=== PATIENT | male | born 1950 | race Caucasian/White ===

== ENCOUNTER 2016-11-26 20:29 | Inpatient (IN) ==
[2016-11-26] MEDS ORDERED: *HR* Enoxaparin 40 MG/0.4 ML SYRINGE SQ STA (22:01)
[2016-11-26] MEDS ORDERED: MOM Conc 10 ML UD.LIQ PO PRN (22:01)
[2016-11-26] MEDS ORDERED: *HR* Morphine 2 MG/ML SYRINGE IVP PRN (22:01)
[2016-11-26] MEDS ORDERED: Acetaminophen 325 MG TABLET PO PRN (22:01)
[2016-11-26] MEDS ORDERED: Naloxone 0.4 MG/ML INJ IVP PRN (22:01)
[2016-11-26] MEDS ORDERED: *HR* Promethazine 25 MG/ML VIAL IVP PRN (22:01)
[2016-11-26] MEDS ORDERED: *HR* OxyCODONE Immed Rel 5 MG TABLET PO PRN (22:01)
[2016-11-26] MEDS ORDERED: 0.9 % Sodium Chloride 1,000 ML IVC SCH (22:15)
[2016-11-26 22:52] LABS: INR 1.4; Prothrombin Time 15.3 Seconds (9.4-12.1)
[2016-11-26 22:54] LABS: Activated Partial Thrombo Time 33.4 Seconds (26.0-36.0)
[2016-11-26 22:58] LABS: Magnesium 1.2 mg/dL (1.6-2.6)
[2016-11-27] MEDS ORDERED: Benzonatate 100 MG CAPSULE PO PRN (00:48)
[2016-11-27] MEDS ORDERED: *HR* LORazepam 2 MG/ML VIAL IVP PRN (00:48)
[2016-11-27] MEDS ORDERED: *HR* Heparin 5,000 UNIT/ML VIAL IVP PRN ×2 (00:48)
[2016-11-27] MEDS ORDERED: *HR* Heparin 5,000 UNIT/ML VIAL IVP ONE (00:48)
[2016-11-27] MEDS ORDERED: Nitroglycerin 0.4 MG TAB.SUBL SL PRN (00:48)
[2016-11-27] MEDS ORDERED: Albuterol 2.5 MG/3 ML NEBULIZER IH PRN (00:48)
[2016-11-27] MEDS ORDERED: Heparin 25,000 UNIT/500 ML D5W 25,000 UNIT/500 ML MLS IVC SCH (01:00)
[2016-11-27] MEDS ORDERED: methylPREDNISolone 125 MG/2 ML VIAL IVP ONE (01:02)
[2016-11-27] MEDS ORDERED: Magnesium Sulfate 2 GM in D5% in Water 100 ML IVPB STA (01:14)
--- NOTE | 2016-11-27 01:15 | Internal Med History&Physical ---
Date of Encounter: 11/26/16 Time of Encounter: 22:00 Assessment and Plan (1) Acute chest pain Current visit: Yes Status: Acute . (2) Chest pain, rule out acute myocardial infarction Current visit: Yes Status: Acute . (3) Chest pain with moderate risk of acute coronary syndrome Current visit: Yes Status: Acute . (4) Demand ischemia of myocardium Current visit: Yes Status: Acute . (5) Ischemia due to increased oxygen demand Current visit: Yes Status: Acute . (6) Angina pectoris, unstable Current visit: Yes Status: Acute . (7) Elevated troponin I measurement Current visit: Yes Status: Acute . (8) Benign neoplasm of lung Current visit: Yes Status: Acute . Qualifiers: Laterality: left Qualified Code(s): D14.32 - Benign neoplasm of left bronchus and lung (9) Hypomagnesemia Current visit: Yes Status: Acute . (10) Nicotine dependence with nicotine-induced disorder Current visit: Yes Status: Chronic . Qualifiers: Nicotine product type: cigarettes Qualified Code(s): F17.219 - Nicotine dependence, cigarettes, with unspecified nicotine-induced disorders (11) Hypertension Current visit: Yes Status: Chronic . Qualifiers: Hypertension type: essential hypertension Qualified Code(s): I10 - Essential (primary) hypertension (12) Dyslipidemia Current visit: Yes Status: Chronic . (13) Obesity (BMI 30-39.9) Current visit: Yes Status: Chronic . (14) COPD (chronic obstructive pulmonary disease) Current visit: Yes Status: Chronic . Qualifiers: COPD type: chronic bronchitis Chronic bronchitis type: mixed simple and mucopurulent Qualified Code(s): J41.8 - Mixed simple and mucopurulent chronic bronchitis (15) Upper respiratory tract infection Current visit: Yes Status: Acute . Qualifiers: URI type: unspecified URI Qualified Code(s): J06.9 - Acute upper respiratory infection, unspecified (16) Acute bronchitis with bronchospasm Current visit: Yes Status: Acute . (17) Atrial fibrillation with RVR Current visit: Yes Status: Acute . (18) Atrial fibrillation and flutter Current visit: Yes Status: Acute . (19) Postobstructive pneumonia Current visit: Yes Status: Acute . (20) Atrial flutter with rapid ventricular response Current visit: Yes Status: Acute . (21) CAD (coronary artery disease) Current visit: Yes Status: Chronic . Qualifiers: Coronary Disease-Associated Artery/Lesion type: [place] artery [place] vs. transplanted heart: [place] heart Associated angina: angina presence unspecified Qualified Code(s): I25.10 - Atherosclerotic heart disease of [place] coronary artery without angina pectoris (22) Mass of left lung Current visit: Yes Status: Chronic . (23) History of PTCA Current visit: Yes Status: Chronic . (24) Non-ST elevation myocardial infarction (NSTEMI) Current visit: Yes Status: Acute . (25) Hypocalcemia Current visit: Yes Status: Acute . (26) Hyponatremia with decreased serum osmolality Current visit: Yes Status: Acute . Internal Medicine - H&P: HPI Chief complaint: Difficulty in breathing. Palpitations. Admitted From: Hospital to Hospital Transfer (Hospital transfer from [facility] ED) Plans for Post Hospital Care: Home History of present illness: Mr. Farias is a 66 year old male with significant history for CAD/PTCAstents x2/AMI, COPD, asthma, hypertension, dyslipidemia, osteoarthritis, osteopenia, H/ O pneumothorax, H/O ?benign left lung mass, obesity, nicotine dependency The patient was visited and interviewed and examined. The patient is admitted to [facility] as a hospital transfer from [facility] emergency department for interventions pertaining to recently defined to new onset atrial fibrillation with a ventricular response in the setting of recurrent angina pectoris. The patient acknowledged being ill for approximately 2 weeks with upper respiratory tract infection. He was seen at a local urgent care center the evening before presenting to the [facility] ED. He was placed on an antibiotic (Zpac) to managed out to be acute bronchitis/community-acquired pneumonia. He completed the initial course of antibiotic and returned to the urgent care center and was initiated on a stronger antibiotic (Augmentin) as the patient felt that he was still symptomatic of chest congestion and nonproductive cough generalized malaise. However he was brought by EMS services to the [facility] emergency department because of acute onset of sharp discomfort in the epigastrium. The cough is described as nonproductive. There was no evidence of hemoptysis hematemesis melena epistaxis. Patient acknowledges postnasal drainage sore throat and wheezing. Denies the fever or chills sweats. Acknowledged shortness of breath at rest and with activity. Persistent moderate to severe in nature over a two-week period of time. Respiratory difficulties cough wheezing and shortness of air worsened with activity symptoms seem to diminish severity with rest. The epigastric pain especially seem to be exertional in nature. He denied any dietary recreational medication related questions. He is a continued smoker. He acknowledges diminished use of tobacco last 2 weeks and more so in the last 2-3 days due to his illness. Findings in the ED: Temperature 98.6 pulse 102 -162 respiration 12-20 and BP 143/78-100 O2 saturation 98% liters per nasal cannula. WBC 13.6 hemoglobin 14.4 platelets 249 ,000. Differential shows an increase in neutrophils. PT 16.2 INR 1.5. Metabolic panel sodium 132 chloride 96. BUN 10 creatinine 1.1. Glucose 109 osmolality 274. Albumin 2.9 total 7.2. Globulin 4.3. Troponin 0.07 0.08. BNP 239. Chest x-ray demonstrates poorly defined left mid lung mass with tenting of the lateral diaphragm. 7 cm or more in size. Mass is increased in size since CT scan of 2011. EKG demonstrates atrial fibrillation with RVR rate 163. Incomplete right bundle branch block. No acute ischemic changes. Preliminary impression suggests ACS/UA against background of persistent upper respiratory tract infection and generalized malaise. Demand ischemia of myocardium with a secondary troponin elevation and flash pulmonary edema not unlikely progression of events. Screening studies consistent with a systemic inflammatory response syndrome criteria met. Patient has COPD exacerbation with acute on chronic bronchitis exacerbation as a consequence. No discrete pneumonia has been defined. The large left upper lobe mass does create compression of the lung tissue predisposing to postobstructive pneumonia and atelectasis of distal lung sections. He does report however that his biopsy of this lesion in the past was benign and he has not sought follow-up for quite some time and the mass is considerably increased in size. Evaluation for possible malignant change in this mass is warranted. He is not toxic or acutely ill as relates to respiratory complaints. Sepsis criteria and are not fully met at the time of this admission. The patient however is at increased risk for acute clinical decline and morbidity. JERED score approximate 5-6. This equates to 26%-41% risk of 14 day cause mortality, and recurrent [place], and/ or severe recurrent ischemia requiring urgent vascularization. Workup and treatment will progress comprehensively. Cumulative laboratory and radiographic data base was reviewed, considered and discussed. Pertinent ancillary medical records including ECW and PCI documentation, when available, was reviewed and considered. Given the patient's presenting concerns, past medical history, clinical findings and symptoms, he is admitted at this time will undergo further evaluation and disposition. Orders were written as per the computerized physician work order clerk system.......................................................................... .................... Consultative opinion and will be sought as clinical circumstances justify. Initial consultative opinion has been requested of cardiology. Pain management needs will be addressed. Laboratory and radiographic data base will be updated as appropriate. Studies include: Cultures of blood and urine and sputum, cardiac injury panel, BNP, metabolic and hematologic panel, magnesium, phosphorus, ionized calcium, thyroid panel, lipid profile, A1c, C-peptide, CRP, sedimentation rate, respiratory infection profile, respiratory virus panel, urinalysis, coagulation panel, blood gas, lactic acid, serologies, etc. Precautions: Aspiration, fall, delirium protocol/surveillance initiated. Telemetry with continuous hemodynamic monitoring and pulse oximetry initiated. Empiric antibody coverage: Intravenous doxycycline pending culture data. Special studies: CT of the chest, chest x-ray, telemetry, EKG, echocardiogram. Pulmonary toilet: Incentive spirometry, aerosol bronchodilator, mucolytic, antitussive, supplemental oxygen. Corticosteroid therapy. CPAP/BiPAP supplemental oxygen delivery may be employed. Aerosol Mucomyst therapy may be employed. Fluid and electrolyte repletion efforts will proceed. Careful attention to fluid balance and renal recovery will be emphasized. Avoidance of nephrotoxic exposure and adverse drug drug interaction in the setting of impaired renal function will be monitored closely. Correction of metabolic and acid-base deficits. Acute coronary syndrome protocol/surveillance initiated. Aspirin, Plavix, beta tommy, JOSE ENRIQUE inhibitor, statin. As needed nitrates. As needed morphine. Supplemental oxygen. Intravenous heparin drip ACS protocol initiated. Intravenous diltiazem drip initiated following intravenous diltiazem loading dose as per atrial fibrillation protocols. DVT and PUD prophylaxis initiated: PPI therapy, intermittent pneumatic cuffs. Early ambulation will be encouraged. Immunization updates recommended. Influenza and pneumococcal vaccinations as part of ongoing preventative healthcare recommendations strongly recommended. Smoking cessation counseling briefly addressed. Patient accepts nicotine substitution with this admission.. Advanced care directive discussion briefly addressed. Patient does not declare any healthcare restrictions at this time. Cardiovascular risk appraisal and cardiovascular risk reduction efforts will be emphasized. Physical and occupational therapy may be consulted to assess patient's functional capacity and progress mobility if circumstances justify. Outpatient medication schedules will be reviewed confirmed and facilitated as appropriate. Reconciliation of home treatments including adjustments, substitutions and reintroduction into the treatment regimen address necessary maintenance therapies for chronic pre-existing medical conditions. Plan of care has been reviewed and discussed in detail with the patient. Questions addressed. Hospital course is dependent on presenting clinical findings, treatment response and potential consultative interventions. Patient is at risk for further acute clinical decline and morbidity due to age, presenting chief complaints and comorbid conditions. Condition is serious. Prognosis is cautiously optimistic. CODE STATUS is full. Past Med Surg Social Fam HX - Past Medical History Source: old records reviewed Medical history: arthritis, asthma, COPD, coronary artery disease, hyperlipidemia, hypertension, osteoporosis, other Psychiatric history: no psych history - Past Surgical History Surgical History: angioplasty/stent, cancer surgery (Biopsy left lung nodule/ mass.), other (CT-guided lung biopsy. Bronchoscopy.) - Social History Smoking Status: Current every day smoker Packs per day: 1+ppd ( x50yrs) Smokeless Tobacco Status: No Alcohol use: none Drug use: none Occupational status: retired Current living situation: With Family Activity Level: Mostly sedentary Recent Out of Country Travel Within the Last 8 Weeks: No Exposure or Possible Exposure to Illness During Travel: No - Family History Father Living Status: Age at : 74 Cause of : [place] Hx Family Cardiac Disorders: Yes Internal Medicine - H&P: Meds CloNIDine HCl [Kapvay] 0.2 mg PO BID 11/24/16 [History] Levofloxacin [Levaquin] 750 mg PO DAILY #7 tablet 11/24/16 [Rx] Lisinopril [Zestril] 40 mg PO DAILY 11/24/16 [History] Metoprolol [Lopressor] 25 mg PO BID 11/24/16 [History] Budesonide/Formoterol 160/4.5 [Symbicort 160/4.5] 1 puff IH BIDR 11/26/16 [ History] Clopidogrel [Plavix] 75 mg PO DAILY 11/26/16 [History] Hydrochlorothiazide 25 mg PO DAILY 11/26/16 [History] Pravastatin Sodium [Pravachol] 40 mg PO HS 11/26/16 [History] Acetaminophen [Tylenol] 500 mg PO Q6HR PRN 11/27/16 [History] Albuterol Sulfate [Ventolin Hfa] 2 puff IH Q4H PRN 11/27/16 [History] Ibuprofen [Motrin] 200 mg PO Q6HR PRN 11/27/16 [History] Allergies No Known Allergies Allergy (Verified 11/24/16 09:59) All Systems PM: A 10-system review of systems was performed and is negative for pertinent findings except as documented above in the HPI. - Constitutional Constitutional: as per HPI, malaise, no chills, no fever(s), no night sweats - EENT Eyes: as per HPI, no change in vision, no discharge, no pain, no photophobia Ears: as per HPI, no ear discharge, no ear pain, no tinnitus Nose, mouth and throat: as per HPI, nasal congestion, post-nasal drip, other, no dysphagia, no nasal discharge, no neck pain, no sore throat - Cardiovascular Cardiovascular ROS IM: as per HPI, chest pain, dyspnea, dyspnea on exertion, irregular heart rhythm, palpitations, no diaphoresis, no lightheadedness, no syncope - Respiratory Respiratory: as per HPI, cough, dyspnea, dyspnea on exertion, wheezing, pain on inspiration, chest congestion, pain with cough, no hemoptysis, no excessive phlegm production, no change in phlegm color - Gastrointestinal Gastrointestinal: as per HPI, abdominal pain, bloating, no diarrhea, no hematemesis, no hematochezia, no melena, no nausea, no vomiting - Genitourinary Genitourinary ROS male: as per HPI, no difficulty urinating, no dysuria, no hematuria - Musculoskeletal Musculoskeletal ROS IM: no as per HPI, no numbness, no tingling - Integumentary Integumentary IM: no as per HPI, no rash, no unusual bruising - Neurological Neurological ROS: no as per HPI, no confusion, no convulsions, no focal weakness , no numbness, no tingling, no tremor(s) - Psychiatric Psychiatric: as per HPI - Endocrine Endocrine IM: as per HPI - Hematologic/Lymphatic Hematologic/Lymphatic: no as per HPI, no easy bruising - Allergic/Immunologic Allergic/Immunologic: as per HPI - Constitutional Vitals: Temp Pulse Resp BP Pulse Ox 98.0 F 114 18 131/82 97 11/27/16 00:30 11/27/16 00:30 11/27/16 00:30 11/27/16 00:30 11/27/16 00:30 General appearance: Present: cooperative, mild distress, A&O X 3, obese, answers questions appropriately - Head Head exam: Present: atraumatic, normocephalic - Eye Eye exam: Present: EOMI, PERRL, conjuntiva pink, sclera anicteric Pupils: Present: normal accommodation, PERRL - ENT ENT exam: Present: mucous membranes moist, normal external ear exam, normal oropharynx - Neck Neck exam general surgery: Present: full ROM, supple, trachea midline. Absent: lymphadenopathy, tenderness, nuchal rigidity - Respiratory Respiratory exam: Present: chest wall tenderness, decreased breath sounds, rhonchi, wheezes. Absent: accessory muscle use, rales, stridor - Cardiovascular Cardiovascular exam: Present: distant heart sounds, irregular rhythm, +S1, +S2, tachycardia. Absent: diastolic murmur, gallop, rubs, systolic murmur - GI/Abdominal GI/Abdominal exam: Present: normal bowel sounds, soft, no peritoneal signs. Absent: distended, tenderness - Extremities Exam Extremities exam: Present: full ROM, warm, radial pulses palpable and symetrical. Absent: calf tenderness, cyanotic, pedal edema - Neurological Exam Neurological exam: Present: alert, CN II-XII intact, oriented X3, no focal deficits. Absent: pronater drift, facial droop, speech deficit - Psychiatric Psychiatric exam: Present: normal affect, normal mood - Skin Skin exam: Present: dry, intact, warm. Absent: petechiae, rash, urticaria, vesicles Internal Med - H&P Results - Labs CBC & Chem 7: 11/27/16 06:16 11/27/16 06:16 Labs: Cardiac Enzymes 11/26/16 Range/Units 22:34 Troponin I 0.06 H* (0-0.03) ng/mL - Impressions Vital Signs Temp Pulse Resp BP Pulse Ox 11/27/16 00:30 98.0 F 114 18 131/82 97 11/26/16 22:40 98.3 F 96 18 106/68 98 Intake and Output 11/26/16 11/26/16 11/27/16 15:59 23:59 07:59 Other: Weight 114.124 kg Cardiac Enzymes 11/26/16 Range/Units 22:34 Troponin I 0.06 H* (0-0.03) ng/mL Abnormal lab results PT 15.3 Seconds (9.4-12.1) H 11/26/16 22:34 Magnesium 1.2 mg/dL (1.6-2.6) L 11/26/16 22:34 Troponin I 0.06 ng/mL (0-0.03) H* 11/26/16 22:34 Allergies Allergy/AdvReac Type Severity Reaction Status Date / Time No Known Allergies Allergy Verified 11/24/16 09:59 Laboratory Results PT 15.3 Seconds (9.4-12.1) H 11/26/16 22:34 INR 1.4 11/26/16 22:34 APTT 33.4 Seconds (26.0-36.0) 11/26/16 22:34 Phosphorus 3.0 mg/dL (2.3-4.7) 11/26/16 22:34 Magnesium 1.2 mg/dL (1.6-2.6) L 11/26/16 22:34 Troponin I 0.06 ng/mL (0-0.03) H* 11/26/16 22:34 Abnormal lab results WBC 12.2 K/mcL (4.3-11.1) H 11/27/16 06:16 Neutrophils # 10.9 K/mcL (1.6-8.9) H 11/27/16 06:16 PT 14.9 Seconds (9.4-12.1) H 11/27/16 06:16 APTT 67.5 Seconds (26.0-36.0) H 11/27/16 12:15 VBG pH 7.44 pH Units (7.32-7.42) H 11/27/16 02:00 VBG pO2 77 mmHg (25-40) H 11/27/16 02:00 VBG HCO3 27.8 mEq/L (21-27) H 11/27/16 02:00 Sodium 129 mEq/L (136-145) L 11/27/16 06:16 Glucose 152 mg/dL (70-99) H 11/27/16 06:16 Hemoglobin A1c 5.8 % (-5.6) H 11/27/16 06:16 Calculated Osmolality 270 (280-300) L 11/27/16 06:16 Ionized Calcium 1.08 mmol/L (1.15-1.35) L 11/27/16 02:00 C-Reactive Protein 108 mg/L (Less than 5) H 11/27/16 06:16 B-Natriuretic Peptide 372 pg/mL (0-100) H 11/27/16 06:16 Albumin 2.7 g/dL (3.5-5.0) L 11/27/16 06:16 Globulin 4.6 g/dL (2.4-3.5) H 11/27/16 06:16 Albumin/Globulin Ratio 0.6 (1.1-2.2) L 11/27/16 06:16 LDL Cholesterol, Calc 100 mg/dL (0-99) H 11/27/16 06:16 HDL Cholesterol 32 mg/dL (40-59) L 11/27/16 06:16 Urine Blood Trace (Negative) H 11/27/16 19:30 Laboratory Last Values WBC 12.2 K/mcL (4.3-11.1) H 11/27/16 06:16 RBC 4.56 M/mcL (4.19-5.50) 11/27/16 06:16 Hgb 13.8 g/dL (12.9-16.9) 11/27/16 06:16 Hct 41.1 % (37.5-50.1) 11/27/16 06:16 MCV 90.1 fL (83.0-100.0) 11/27/16 06:16 MCH 30.3 pg (28.0-33.3) 11/27/16 06:16 MCHC 33.6 g/dL (31.6-35.5) 11/27/16 06:16 RDW 13.2 % (11.5-14.5) 11/27/16 06:16 Plt Count 238 K/mcL (140-400) 11/27/16 06:16 MPV 10.2 fL (9.4-12.4) 11/27/16 06:16 Immature Gran % 0.7 % (0-4) 11/27/16 06:16 Seg Neutrophils % 88.9 % 11/27/16 06:16 Lymphocytes % 8.1 % 11/27/16 06:16 Monocytes % 2.1 % 11/27/16 06:16 Eosinophils % 0.0 % 11/27/16 06:16 Basophils % 0.2 % 11/27/16 06:16 Neutrophils # 10.9 K/mcL (1.6-8.9) H 11/27/16 06:16 Lymphocytes # 1.0 K/mcL (0.6-4.6) 11/27/16 06:16 Monocytes # 0.3 K/mcL (0.0-1.3) 11/27/16 06:16 Eosinophils # 0.0 K/mcL (0.0-0.6) 11/27/16 06:16 Basophils # 0.0 K/mcL (0.0-0.2) 11/27/16 06:16 PT 14.9 Seconds (9.4-12.1) H 11/27/16 06:16 INR 1.4 11/27/16 06:16 APTT 67.5 Seconds (26.0-36.0) H 11/27/16 12:15 VBG pH 7.44 pH Units (7.32-7.42) H 11/27/16 02:00 VBG pCO2 41 mmHg (41-51) 11/27/16 02:00 VBG pO2 77 mmHg (25-40) H 11/27/16 02:00 VBG HCO3 27.8 mEq/L (21-27) H 11/27/16 02:00 Sodium 129 mEq/L (136-145) L 11/27/16 06:16 Potassium 4.5 mEq/L (3.5-4.5) 11/27/16 06:16 Chloride 98 mEq/L (98-109) 11/27/16 06:16 Carbon Dioxide 23 mEq/L (19-29) 11/27/16 06:16 BUN 10 mg/dL (8-26) 11/27/16 06:16 Creatinine 1.07 mg/dL (0.72-1.25) 11/27/16 06:16 Est GFR ( Amer) > 60 (> 60) 11/27/16 06:16 Est GFR (Non-Af Amer) > 60 (> 60) 11/27/16 06:16 BUN/Creatinine Ratio 9 (6-26) 11/27/16 06:16 Glucose 152 mg/dL (70-99) H 11/27/16 06:16 Est Mean Plasma Glucose 120 mg/dl 11/27/16 06:16 Hemoglobin A1c 5.8 % (-5.6) H 11/27/16 06:16 Calculated Osmolality 270 (280-300) L 11/27/16 06:16 Calcium 8.9 mg/dL (8.6-10.8) 11/27/16 06:16 Ionized Calcium 1.08 mmol/L (1.15-1.35) L 11/27/16 02:00 Phosphorus 2.9 mg/dL (2.3-4.7) 11/27/16 06:16 Magnesium 1.7 mg/dL (1.6-2.6) 11/27/16 06:16 Total Bilirubin 0.7 mg/dL (0.2-1.2) 11/27/16 06:16 AST 13 Units/L (5-34) 11/27/16 06:16 ALT 7 Units/L (0-55) 11/27/16 06:16 Alkaline Phosphatase 75 Units/L (38-126) 11/27/16 06:16 Troponin I 0.02 ng/mL (0-0.03) 11/27/16 12:15 C-Reactive Protein 108 mg/L (Less than 5) H 11/27/16 06:16 B-Natriuretic Peptide 372 pg/mL (0-100) H 11/27/16 06:16 Serum Total Protein 7.3 g/dL (6.0-8.3) 11/27/16 06:16 Albumin 2.7 g/dL (3.5-5.0) L 11/27/16 06:16 Globulin 4.6 g/dL (2.4-3.5) H 11/27/16 06:16 Albumin/Globulin Ratio 0.6 (1.1-2.2) L 11/27/16 06:16 Triglycerides 64 mg/dL (< 150) 11/27/16 06:16 Cholesterol 145 mg/dL (< 200) 11/27/16 06:16 LDL Cholesterol, Calc 100 mg/dL (0-99) H 11/27/16 06:16 VLDL Cholesterol, Calc 13 mg/dL (< 31) 11/27/16 06:16 HDL Cholesterol 32 mg/dL (40-59) L 11/27/16 06:16 Cholesterol/HDL Ratio 4.5 (0-4.9) 11/27/16 06:16 Amylase 57 Units/L (25-125) 11/27/16 06:16 Lipase 75 Units/L (8-78) 11/27/16 06:16 TSH 1.942 mcIU/mL (0.350-4.840) 11/27/16 06:16 Urine Color Yellow (Yellow) 11/27/16 19:30 Urine Clarity Clear (Clear) 11/27/16 19:30 Urine pH 6.0 pH Units (5.0-8.0) 11/27/16 19:30 Ur Specific [place] 1.020 (1.010-1.025) 11/27/16 19:30 Urine Protein Trace mg/dL (Neg-Trace) 11/27/16 19:30 Urine Glucose (UA) Normal mg/dL (Normal) 11/27/16 19:30 Urine Ketones Negative mg/dL (Negative) 11/27/16 19:30 Urine Blood Trace (Negative) H 11/27/16 19:30 Urine Nitrite Negative (Negative) 11/27/16 19:30 Urine Bilirubin Negative (Negative) 11/27/16 19:30 Urine Urobilinogen Normal mg/dL (Normal) 11/27/16 19:30 Ur Leukocyte Esterase Negative (Negative) 11/27/16 19:30 Urine Microscopic RBC 0-3 per hpf (0-3) 11/27/16 19:30 Urine Microscopic WBC 0-3 per hpf (0-3) 11/27/16 19:30 Ur Squamous Epith Cells Few per lpf (None-Few) 11/27/16 19:30 Urine Bacteria None Seen per hpf (None-Few) 11/27/16 19:30 Hyaline Casts None Seen per lpf (None-Few) 11/27/16 19:30 Blood Type O NEGATIVE 11/27/16 06:16 Antibody Screen NEGATIVE 11/27/16 06:[address] 11/27/16 15:30 IMPRESSION: Findings worrisome for neoplasm including mediastinal and left hilar adenopathy which is contiguous with the left central lung perihilar amorphous mass causing postobstructive consolidation within the upper and lingula. Bilateral adrenal gland masses are present worrisome for metastatic disease. D/ / Dianelys Villalobos Cha, MD / Dianelys Villalobos Cha, MD Interpreting Provider: Dianelys Villalobos Cha, MD
[2016-11-27 02:18] LABS: VBG HCO3 27.8 mEq/L (21-27); VBG PH 7.44 pH Units (7.32-7.42)
[2016-11-27 02:27] LABS: Ionized Calcium 1.08 mmol/L (1.15-1.35)
[2016-11-27 02:50] LABS: Thyroid Stimulating Hormone 2.466 mcIU/mL (0.350-4.840)
[2016-11-27] MEDS: *HR* Morphine 2 MG/ML SYRINGE IVP PRN ×3 (03:23→09:06)
[2016-11-27] MEDS: Ipratropium/Albuterol Neb 3 ML IH SCH ×5 (04:31→23:26)
[2016-11-27 06:33] LABS: Basophils % 0.2 %; Hematocrit 41.1 % (37.5-50.1); Hemoglobin 13.8 g/dL (12.9-16.9); Immature Granulocytes % 0.7 % (0-4); Lymphocytes % 8.1 %; Mean Corpuscular HGB Conc 33.6 g/dL (31.6-35.5); Mean Corpuscular Hemoglobin 30.3 pg (28.0-33.3); Mean Corpuscular Volume 90.1 fL (83.0-100.0); Mean Platelet Volume 10.2 fL (9.4-12.4); Monocytes # 0.3 K/mcL (0.0-1.3); Monocytes % 2.1 %; Neutrophils # 10.9 K/mcL (1.6-8.9); Platelet Count 238 K/mcL (140-400); Red Blood Count 4.56 M/mcL (4.19-5.50); Red Cell Distribution Width 13.2 % (11.5-14.5); Segmented Neutrophils % 88.9 %
[2016-11-27 06:37] LABS: INR 1.4; Prothrombin Time 14.9 Seconds (9.4-12.1)
[2016-11-27 06:50] LABS: Hemoglobin A1C 5.8 %
[2016-11-27 06:54] LABS: Alanine Aminotransferase 7 Units/L (0-55); Albumin 2.7 g/dL (3.5-5.0); Albumin/Globulin Ratio 0.6 (1.1-2.2); Alkaline Phosphatase 75 Units/L (38-126); Aspartate Amino Transferase 13 Units/L (5-34); BUN/Creatinine Ratio 9 (6-26); Bilirubin,Total 0.7 mg/dL (0.2-1.2); Blood Urea Nitrogen 10 mg/dL (8-26); Calcium 8.9 mg/dL (8.6-10.8); Carbon Dioxide 23 mEq/L (19-29); Chloride 98 mEq/L (98-109); Chol/HDL Ratio 4.5 (0-4.9); Cholesterol 145 mg/dL (< 200); Globulin 4.6 g/dL (2.4-3.5); Glucose 152 mg/dL (70-99); HDL Cholesterol 32 mg/dL (40-59); LDL Cholesterol,Calculated 100 mg/dL (0-99); Osmolality,Calculated 270 (280-300); Potassium 4.5 mEq/L (3.5-4.5); Sodium 129 mEq/L (136-145); Total Protein 7.3 g/dL (6.0-8.3); Triglycerides 64 mg/dL (< 150); eGFR For African Americans > 60 (> 60); eGFR For Non-African Americans > 60 (> 60)
[2016-11-27 07:02] LABS: Magnesium 1.7 mg/dL (1.6-2.6); Phosphorous 2.9 mg/dL (2.3-4.7)
[2016-11-27 07:10] LABS: Thyroid Stimulating Hormone 1.942 mcIU/mL (0.350-4.840)
[2016-11-27] MEDS: Doxycycline 100 MG CAPSULE PO SCH ×2 (09:00→19:34)
[2016-11-27] MEDS ORDERED: predniSONE 20 MG TABLET PO SCH (09:00)
[2016-11-27] MEDS: Lisinopril 20 MG TABLET PO SCH (09:00)
[2016-11-27] MEDS: Aspirin 81 MG TAB.CHEW PO SCH (09:00)
[2016-11-27] MEDS: Nicotine 21 MG PATCH.TD24 TD SCH (09:01)
--- NOTE | 2016-11-27 10:15 | Cardiology Consult Note ---
<Melvin Mata - Last Filed: 11/27/16 11:11> Date of Encounter: 11/27/16 Time of Encounter: 10:11 Assessment and Plan (1) Atrial flutter with rapid ventricular response Current Visit: Yes Status: Acute Now rate controlled in 70s on Cardizem gtt at 7.5mg/hr. 12 hour tele AVG HR 90. Will transition to PO Cardizem CD 180mg daily. Continue Lopressor 25mg BID. CHADSVASC score 3 (Age, HTN, CAD). Recommend anticoagulation. Currently on heparin gtt. Discussed Coumadin vs. NOACs. Pt has no preference. Will check larkin of Xarelto. Check echo to evaluate structure and function. Symptoms of dyspnea and chest pain likely secondary to the A-Flutter with RVR, as symptoms improved/subsided with rate control. 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 TSH 1.942. K 4.5, Mag 1.7--replace. Recommend outpt follow-up with EP, Dr. Rey Simeon to see if he is a candidate for A-Flutter ablation. (2) CAD (coronary artery disease) Current Visit: Yes Status: Chronic Hx of CAD s/p angioplasty in 2010 to obtuse marginal branches. 60% proximal LAD stenosis remained. Stress test 05/2013 perfusion imaging was negative for ischemia or infarct. Mild TID was noted--1.19. Continue ASA, Statin, BB. Can stop Plavix since will be adding anticoagulation for A-Fib. Qualifiers: Coronary Disease-Associated Artery/Lesion type: [place] artery [place] vs. transplanted heart: [place] heart Associated angina: angina presence unspecified Qualified Code(s): I25.10 - Atherosclerotic heart disease of [place] coronary artery without angina pectoris (3) Elevated troponin Current Visit: Yes Status: Acute 0.06, 0.03 in setting of A-Flutter with RVR. Suspect demand ischemic, nondiagnostic for ACS. Check echo to evaluate structure and function. Continue ASA, Statin, BB. (4) Chest pain Current Visit: Yes Status: Acute Midsternal chest pain was in setting of A-Flutter with RVR--subsided with rate control--only recurrence has been with coughing, pleuritic in nature. Mild troponin elevation 0.06 in setting of RVR. Check echo. If EF preserved, further ischemic evaluation can be considered as outpt. Qualifiers: Chest pain type: unspecified Qualified Code(s): R07.9 - Chest pain, unspecified (5) Hyponatremia Current Visit: Yes Status: Acute Sodium 129--recommend further work-up as there is no clear explanation for this. Discussion w patient/family: The assessment and plan as outlined above was discussed with the patient and/or family members who expressed understanding and agreement. All questions were answered. Thank you for involving us in the care of your patient. Please call with any questions. I will discuss all the above with Dr. Hsu and make changes as necessary. History of Present Illness Consult date: 11/27/16 Requesting physician: Mann Gibbons Consult reason: A-Flutter RVR Chief complaint: dyspnea, chest pain History of present illness: Mr. Farias is a 66 year old male with PMH of CAD s/p PCI in 2010, HTN, HLD, tobacco abuse, COPD that presented with chief complaint of dyspnea that worsened yesterday associated with mid sternal chest pain. He had been on antibiotics as outpt for bronchitis/PNA, started by urgent care. On presentation , found to be in A-Flutter with RVR, HR 160s. He was started on a cardizem gtt, now rate controlled. He reports symptoms have now greatly improved/subsided. Dyspnea improved, denies chest pain except for when he coughs, rates it a 1/10. His troponins were 0.06, 0.03. Currently on cardizem gtt 7.5mg/hr in SR. BNP 372 , TSH 1.942. Pt reports he had a sleep study in the past, was told he had NIDIA, but never followed up. Past Med Surg Social Fam HX - Past Medical History Medical history: arthritis, asthma, COPD, coronary artery disease, hyperlipidemia, hypertension, osteoporosis, other Psychiatric history: no psych history - Past Surgical History Surgical History: angioplasty/stent, cancer surgery (Biopsy left lung nodule/ mass.), other (CT-guided lung biopsy. Bronchoscopy.) - Social History Smoking Status: Current every day smoker Packs per day: 1+ppd ( x50yrs) Smokeless Tobacco Status: No Alcohol use: none Drug use: none - Family History Father Living Status: Age at : 74 Cause of : [place] Hx Family Cardiac Disorders: Yes Medications and Allergies CloNIDine HCl [Kapvay] 0.2 mg PO BID 11/24/16 [History] Levofloxacin [Levaquin] 750 mg PO DAILY #7 tablet 11/24/16 [Rx] Lisinopril [Zestril] 40 mg PO DAILY 11/24/16 [History] Metoprolol [Lopressor] 25 mg PO BID 11/24/16 [History] Budesonide/Formoterol 160/4.5 [Symbicort 160/4.5] 1 puff IH BIDR 11/26/16 [ History] Clopidogrel [Plavix] 75 mg PO DAILY 11/26/16 [History] Hydrochlorothiazide 25 mg PO DAILY 11/26/16 [History] Pravastatin Sodium [Pravachol] 40 mg PO HS 11/26/16 [History] Acetaminophen [Tylenol] 500 mg PO Q6HR PRN 11/27/16 [History] Albuterol Sulfate [Ventolin Hfa] 2 puff IH Q4H PRN 11/27/16 [History] Ibuprofen [Motrin] 200 mg PO Q6HR PRN 11/27/16 [History] Allergies No Known Allergies Allergy (Verified 11/24/16 09:59) All Systems Review: A 10-system review of systems was performed and is negative for pertinent findings except as documented above in the HPI. - Cardiovascular Cardiovascular: as per HPI, chest pain at rest, dyspnea at rest, dyspnea on exertion - Respiratory Respiratory: cough, dyspnea Physical Examination Vital Signs, Last 4 Hours Temp Pulse Resp BP Pulse Ox 11/27/16 06:51 98.1 F 74 20 112/74 94 L Vital Signs Temp Pulse Resp BP Pulse Ox 11/27/16 06:51 98.1 F 74 20 112/74 94 L 11/27/16 04:34 98.2 F 79 18 109/71 96 11/27/16 04:33 18 95 11/27/16 00:30 98.0 F 114 18 131/82 97 11/26/16 22:40 98.3 F 96 18 106/68 98 Intake and Output 11/26/16 11/27/16 11/27/16 23:59 07:59 15:59 Intake Total 197 / 197 0 / 0 Output Total 300 / 300 0 / 0 Balance -103 / -103 0 / 0 Intake: IV Fluids 197 / 197 Heparin 25,000 UNIT/500 197 / 197 ML D5W 25,000 unit In 500 ml @ 8.75 UNIT/KG/HR 19. 972 mls/hr IVC .Q24H [facility] Rx#:[id number] Oral 0 / 0 0 / 0 Output: Urine 300 / 300 0 / 0 Other: Meal NPO Percent of Meal Consumed 0% Weight 114.124 kg 113.58 kg Patient Weight 11/27/16 23:59 Weight 113.58 kg General: Conversant HEENT: Atraumatic, Normocephaly, Mucus Membranes Moist Neck: No JVD, Normal carotid pulses Lungs: Other (wheezes noted) Neuro: Alert and responsive, No focal deficits noted Abdomen: Soft, Non-Tender Skin: No rashes noted on visualized skin Musculoskeletal: No Chest Wall Tenderness Extremities: No Clubbing, No Cyanosis, No Edema, Normal Pulses Results 11/27/16 06:16 11/27/16 06:16 Lab Results 11/26/16 11/26/16 11/26/16 22:34 22:34 22:34 WBC Hgb Hct Plt Count INR 1.4 APTT 33.4 Sodium Potassium Chloride Carbon Dioxide BUN Creatinine Glucose Calcium Magnesium 1.2 L Total Bilirubin AST ALT Alkaline Phosphatase Troponin I 0.06 H* B-Natriuretic Peptide Amylase Lipase TSH 11/27/16 11/27/16 11/27/16 02:00 06:16 06:16 WBC 12.2 H Hgb 13.8 Hct 41.1 Plt Count 238 INR APTT Sodium 129 L Potassium 4.5 Chloride 98 Carbon Dioxide 23 BUN 10 Creatinine 1.07 Glucose 152 H Calcium 8.9 Magnesium Total Bilirubin 0.7 AST 13 ALT 7 Alkaline Phosphatase 75 Troponin I B-Natriuretic Peptide Amylase Lipase TSH 2.466 11/27/16 11/27/16 11/27/16 06:16 06:16 06:16 WBC Hgb Hct Plt Count INR 1.4 APTT 85.0 H D Sodium Potassium Chloride Carbon Dioxide BUN Creatinine Glucose Calcium Magnesium 1.7 Total Bilirubin AST ALT Alkaline Phosphatase Troponin I 0.03 B-Natriuretic Peptide Amylase 57 Lipase 75 TSH 1.942 11/27/16 06:16 WBC Hgb Hct Plt Count INR APTT Sodium Potassium Chloride Carbon Dioxide BUN Creatinine Glucose Calcium Magnesium Total Bilirubin AST ALT Alkaline Phosphatase Troponin I B-Natriuretic Peptide 372 H Amylase Lipase TSH Short CBC 11/27/16 Range/Units 06:16 WBC 12.2 H (4.3-11.1) K/mcL Hgb 13.8 (12.9-16.9) g/dL Hct 41.1 (37.5-50.1) % Plt Count 238 (140-400) K/mcL Neutrophils # 10.9 H (1.6-8.9) K/mcL BMP 11/27/16 Range/Units 06:16 Sodium 129 L (136-145) mEq/L Potassium 4.5 (3.5-4.5) mEq/L Chloride 98 (98-109) mEq/L Carbon Dioxide 23 (19-29) mEq/L BUN 10 (8-26) mg/dL Creatinine 1.07 (0.72-1.25) mg/dL Glucose 152 H (70-99) mg/dL Calcium 8.9 (8.6-10.8) mg/dL Cardiac Enzymes 11/27/16 11/26/16 Range/Units 06:16 22:34 Troponin I 0.03 0.06 H* (0-0.03) ng/mL Liver Function 11/27/16 Range/Units 06:16 Total Bilirubin 0.7 (0.2-1.2) mg/dL AST 13 (5-34) Units/L ALT 7 (0-55) Units/L Alkaline Phosphatase 75 (38-126) Units/L Albumin 2.7 L (3.5-5.0) g/dL Active Medications Acetaminophen (Tylenol) 650 mg PO Q6HR PRN PRN Reason: Mild Pain (1-3) Stop: 05/28/17 22:02 Al Hydrox/Mg Hydrox/Simethicone (Maalox) 15 ml PO Q6HR PRN PRN Reason: Dyspepsia Stop: 05/28/17 22:02 Albuterol Sulfate (Proventil Neb) 2.5 mg IH Q2H PRN PRN Reason: Shortness Of Breath/Wheezing Stop: 05/29/17 00:49 Albuterol/Ipratropium (Duoneb) 3 ml IH QIDR [place] Stop: 05/29/17 05:01 Last Admin: 11/27/16 04:31 Dose: 3 ml Aspirin (Aspirin) 81 mg PO DAILY [facility] Stop: 05/29/17 09:01 Last Admin: 11/27/16 09:00 Dose: 81 mg Benzonatate (Tessalon) 200 mg PO TID PRN PRN Reason: Cough Stop: 05/29/17 00:49 Clopidogrel Bisulfate (Plavix) 75 mg PO DAILY [facility] Stop: 05/29/17 09:01 Last Admin: 11/27/16 09:01 Dose: 75 mg Docusate Sodium (Colace) 100 mg PO BID [facility] Stop: 05/29/17 09:01 Last Admin: 11/27/16 09:00 Dose: 100 mg Doxycycline Hyclate (Doxycycline) 100 mg PO BID [facility] Stop: 05/29/17 09:01 Last Admin: 11/27/16 09:00 Dose: 100 mg Guaifenesin (Mucinex) 600 mg PO BID [facility] Stop: 05/29/17 09:01 Last Admin: 11/27/16 09:01 Dose: 600 mg Heparin Sodium (Porcine) (Heparin) 4,000 unit IVP Q6HR PRN PRN Reason: SEE COMMENTS Stop: 05/29/17 00:49 Heparin Sodium (Porcine) (Heparin) 2,000 unit IVP Q6H PRN PRN Reason: SEE COMMENTS Stop: 05/29/17 00:49 Sodium Chloride (0.9 % Sodium Chloride) 1,000 mls @ 50 mls/hr IVC .Q20H [facility] Stop: 05/28/17 22:16 Last Admin: 11/27/16 01:05 Dose: 50 mls/hr Heparin Sodium/Dextrose (Heparin 25,000 Unit/500 Ml D5w) 25,000 unit in 500 mls @ 19.972 mls/hr IVC .Q24H [place]; 8.75 UNIT/KG/HR PRN Reason: Protocol Stop: 05/29/17 01:01 Last Titration: 11/27/16 07:27 Dose: 13.69 unit/kg/hr, 31.259 mls/hr Diltiazem HCl 125 mg/ Dextrose 125 mls @ 10 mls/hr IVC .[id number] [place] PRN Reason: 10 MG/HR Stop: 05/29/17 05:16 Last Admin: 11/27/16 05:24 Dose: 10 mg/hr, 10 mls/hr Lisinopril (Zestril) 40 mg PO DAILY [facility] Stop: 05/29/17 09:01 Last Admin: 11/27/16 09:00 Dose: 40 mg Lorazepam (Ativan) 1 mg IVP Q6HR PRN PRN Reason: Anxiety Stop: 05/29/17 00:49 Magnesium Hydroxide (Milk Of Magnesia Conc) 10 ml PO DAILY PRN PRN Reason: Indigestion Stop: 05/28/17 22:02 Metoprolol Tartrate (Lopressor) 5 mg IVP Q6HR PRN PRN Reason: SEE COMMENTS Stop: 05/29/17 00:49 Metoprolol Tartrate (Lopressor) 25 mg PO BID [facility] Stop: 05/29/17 01:01 Last Admin: 11/27/16 09:01 Dose: 25 mg Morphine Sulfate (Morphine Sulfate) 2 mg IVP Q2H PRN PRN Reason: Severe Pain (7-10) Stop: 05/28/17 22:02 Last Admin: 11/27/16 09:06 Dose: 2 mg Naloxone HCl (Narcan) 0.4 mg IVP Q2MIN PRN PRN Reason: Opioid Reversal Stop: 05/28/17 22:02 Nicotine (Nicoderm) 21 mg TD DAILY [facility] PRN Reason: Protocol Stop: 05/29/17 09:01 Last Admin: 11/27/16 09:01 Dose: 21 mg Nitroglycerin (Nitroglycerin) 0.4 mg SL Q5MIN PRN PRN Reason: Chest Pain Stop: 05/29/17 00:49 Omeprazole (Prilosec) 20 mg PO BID [facility] PRN Reason: Protocol Stop: 05/29/17 09:01 Last Admin: 11/27/16 09:00 Dose: 20 mg Oxycodone HCl (Roxicodone) 10 mg PO Q6HR PRN PRN Reason: Moderate Pain (4-6) Stop: 05/28/17 22:02 Last Admin: 11/27/16 01:11 Dose: 10 mg Prednisone (Prednisone) 40 mg PO DAILY [facility] Stop: 05/29/17 09:01 Last Admin: 11/27/16 09:12 Dose: 40 mg Promethazine HCl (Phenergan) 12.5 mg IVP Q6HR PRN PRN Reason: Nausea And Vomiting Stop: 05/28/17 22:02 Simvastatin (Zocor) 40 mg PO [facility] Stop: 05/29/17 21:01 - Imaging and Cardiology Chest Xray: report reviewed Stress Test: report reviewed (05/2013-Perfusion imaging negative for ischemia or infarct. Gated EF 71%, mild TID ratio 1.19.) Echo: report reviewed (05/2013 EF 65%, mild diastolic dysfunction, trivial TR.) Cardiac cath: report reviewed (10/2011--Severe 2 vessel CAD. 60% proximal LAD stenosis, 70-80% mid 1st obtuse, proximal 1st obtuse and proximal 2nd obtuse stenosis. 60-70% proximal 3rd obtuse stenosis. Pt had angioplasty of obtuse artery stenosis.) - EKG Interpretation EKG results cardiology: personally reviewed (A-Flutter RVR rate 160s.), other ( 12 hour tele AVG HR 90, A-Flutter.) Consult Discharge Plan - Plan Referrals: Shabana Fulton, TELESALES REPRESENTATIVE [Advanced Practice Nurse] - 12/09/16 1:00 pm (Please follow up as schedule...) <Prachi Hsu - Last Filed: 11/27/16 16:07> Date of Encounter: 11/27/16 Assessment and Plan Discussion w patient/family: The assessment and plan as outlined above was discussed with the patient and/or family members who expressed understanding and agreement. All questions were answered. Thank you for involving us in the care of your patient. Please call with any questions. History of Present Illness History of present illness: Mr. Farias is a 66 year old male All Systems Review: A 10-system review of systems was performed and is negative for pertinent findings except as documented above in the HPI. Results 11/27/16 06:16 11/27/16 06:16 Lab Results 11/26/16 11/26/16 11/26/16 22:34 22:34 22:34 WBC Hgb Hct Plt Count INR 1.4 APTT 33.4 Sodium Potassium Chloride Carbon Dioxide BUN Creatinine Glucose Calcium Magnesium 1.2 L Total Bilirubin AST ALT Alkaline Phosphatase Troponin I 0.06 H* B-Natriuretic Peptide Amylase Lipase TSH 11/27/16 11/27/16 11/27/16 02:00 06:16 06:16 WBC 12.2 H Hgb 13.8 Hct 41.1 Plt Count 238 INR APTT Sodium 129 L Potassium 4.5 Chloride 98 Carbon Dioxide 23 BUN 10 Creatinine 1.07 Glucose 152 H Calcium 8.9 Magnesium Total Bilirubin 0.7 AST 13 ALT 7 Alkaline Phosphatase 75 Troponin I B-Natriuretic Peptide Amylase Lipase TSH 2.466 11/27/16 11/27/16 11/27/16 06:16 06:16 06:16 WBC Hgb Hct Plt Count INR 1.4 APTT 85.0 H D Sodium Potassium Chloride Carbon Dioxide BUN Creatinine Glucose Calcium Magnesium 1.7 Total Bilirubin AST ALT Alkaline Phosphatase Troponin I 0.03 B-Natriuretic Peptide Amylase 57 Lipase 75 TSH 1.942 11/27/16 11/27/16 11/27/16 06:16 12:15 12:15 WBC Hgb Hct Plt Count INR APTT 67.5 H Sodium Potassium Chloride Carbon Dioxide BUN Creatinine Glucose Calcium Magnesium Total Bilirubin AST ALT Alkaline Phosphatase Troponin I 0.02 B-Natriuretic Peptide 372 H Amylase Lipase TSH - Attending Attestation I examined this patient and my medical decision-making was reviewed with the MICROWAVE TECHNICIAN/PA/Advanced Practice Nurse/Resident Physician. I agree with the documented findings, disposition and treatment. Ms. Farias presents with respiratory complaints after being treated for a possible PNA or bronchitis at home. She was discovered to be in atrial flutter which is a new diagnosis. Rates are now controlled on beta tommy. Troponins are mildly elevated and flat due to demand ischemia. Echo returned with normal function. We will discuss the cost of xarelto with the patient-$8/month and start if acceptable to patient. Consider stress testing as outpatient
[2016-11-27] MEDS: Diltiazem CD (24hr) 180 MG CAPSULE PO SCH (11:11)
--- NOTE | 2016-11-27 15:09 | ECHO - Doppler Report ---
Echocardiogram Name: Allison Farias Date of Study: 11/27/2016 Date: 1950 Ht: 75.0 in Medical Record#: [id number] Age: 66 Wt: 250.0 lb Gender: Male BSA: 2.41 Order #: [id number] Location: [facility] Room #: 2A25 Reading Physician: Devan Bolaños MD, [facility] Research Chief Engineer: Sukumar Pineda RN Ordering Physician: Carlos Parekh MD Primary Physician: Shabana Fulton CNP Indications: Arrhythmia Impressions: Normal left ventricular size and systolic function, LVEF 65-70%. Indeterminate diastolic function due to atrial flutter. Normal right ventricular size and function. No significant valvular dysfunction. No evidence of pulmonary hypertension. Left Ventricular Wall Motion: Rest Echo Findings All wall segments showed normal motion. Findings: Study Quality * Technically adequate exam. ECG Findings * Atrial flutter. Left Ventricle * Normal left ventricular size and systolic function, LVEF 65-70%. * Normal LV wall thickness. * Indeterminate diastolic function due to atrial flutter. Right Ventricle * Normal right ventricular size and function. Left Atrium * Normal left atrial size. Right Atrium * Normal right atrial size. Interatrial Septum * Lipomatous interatrial septum. Aorta * Normally sized aortic root. Pericardium * There is no pericardial effusion present. IVC * Normal IVC dimensions and inspiratory collapse. Aortic Valve * Trileaflet aortic valve. * Mildly sclerotic aortic valve leaflets. * No aortic stenosis. * No aortic regurgitation. Mitral Valve * Mildly calcified mitral valve leaflets. * No mitral stenosis. * Trace mitral regurgitation. Tricuspid Valve * Normal tricuspid valve structure. * No tricuspid stenosis. * Trace tricuspid regurgitation. * No evidence of pulmonary hypertension. Pulmonic Valve * Pulmonic valve not well visualized. * No pulmonic stenosis. * No pulmonic regurgitation. History Hypertension Hypercholesteremia History of Smoking Years 44 Packs 1 Family History of CAD History of CAD/PTCA 05/24/2013 a Previous Echo was performed. Measurements: BP: 125/ 81 2D Normal Values RVIDd: 3.10 cm IVSd: 1.00 cm 0.6 - 1.0 cm LVIDd: 4.60 cm 3.7 - 5.6 cm LVPWd: 1.00 cm 0.6 - 1.1 cm LVIDs: 2.50 cm 1.5 - 3.6 cm AO: 3.50 cm < 4.0 cm LA volume: 63 Tricuspid Valve TV Regurg Peak Grad: 28.00mmHg TV Regurg Peak Lemuel: 2.60m/sec Updated by Devan Bolaños MD, [facility] on 11/27/2016 3:04:11 PM electronically signed on 11/27/2016 3:05:10 PM with status of Final Wall Motion [place]: 1=Normal, 2=Hypokinesis, 3=Akinesis, 4=Dyskinesis, 5=Aneurysmal, 6=Hyperkinetic, X=Not Visualized (Blank)=Missing
--- NOTE | 2016-11-27 15:17 | Internal Med Progress Note ---
Date of Encounter: 11/27/16 Time of Encounter: 15:14 - Assessment and plan (1) Atrial flutter with rapid ventricular response Current Visit: Yes Status: Acute Assessment and plan: Now rate controlled in 70s , transitioned to PO Cardizem CD 180mg daily. Continue Lopressor 25mg BID. CHADSVASC score 3 (Age, HTN, CAD). Cardiology on board for anticoagulation. Echo shows LVEF of 65-70% with indeterminate diastolic function due to atrial flutter. No evidence of coronary hypertension. Symptoms of dyspnea and chest pain likely secondary to the A-Flutter with RVR, as symptoms improved/subsided with rate control. 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 TSH 1.942. Recommend outpt follow-up with EP, Dr. Rey Simeon to see if he is a candidate for A-Flutter ablation as per cardiology. (2) Elevated troponin Current Visit: Yes Status: Acute Assessment and plan: 0.06, 0.03 in setting of A-Flutter with RVR. Suspect demand ischemic, nondiagnostic for ACS. Continue ASA, Statin, BB. (3) CAD (coronary artery disease) Current Visit: Yes Status: Chronic Assessment and plan: Hx of CAD s/p angioplasty in 2010 to obtuse marginal branches. 60% proximal LAD stenosis remained. Stress test 05/2013 perfusion imaging was negative for ischemia or infarct. Mild TID was noted--1.19. Continue ASA, Statin, BB. Can stop Plavix since will be adding anticoagulation for A-Fib. Qualifiers: Coronary Disease-Associated Artery/Lesion type: [place] artery [place] vs. transplanted heart: [place] heart Associated angina: angina presence unspecified Qualified Code(s): I25.10 - Atherosclerotic heart disease of [place] coronary artery without angina pectoris (4) Mass of left lung Current Visit: No Status: Acute Assessment and plan: last time was noted to have spiculated left lung nodule 2cm that was biopsied and aspirin the patient he had pneumothorax after the biopsy. The chest x-ray today shows enlarged mass around 7 cm. Would repeat a chest CT and consult pulmonary based on the findings. As per him the biopsy results was benign last time, however since it is enlarging, we will probably need rebiopsy of the mass. However he is reluctant for another biopsy given previous complication of pneumothorax and chest tube placement. We will order CT chest today. (5) COPD (chronic obstructive pulmonary disease) Current Visit: Yes Status: Chronic Assessment and plan: Not in exacerbation. Qualifiers: COPD type: chronic bronchitis Chronic bronchitis type: mixed simple and mucopurulent Qualified Code(s): J41.8 - Mixed simple and mucopurulent chronic bronchitis - Time Spent With Patient 25 - 35 minutes - Subjective Interval history: Patient seen at the bedside, denies any complaints. Was started on diltiazem drip for A. fib RVR, heart rate has stabilized. Cardiology has been consulted, has been transitioned to oral diltiazem, the drip has been stopped. He denies any chest pain, shortness of breath, palpitations. - Constitutional Vitals: Temp Pulse Resp BP Pulse Ox 98.3 F 78 18 125/81 96 11/27/16 10:51 11/27/16 10:51 11/27/16 10:55 11/27/16 10:51 11/27/16 10:55 General appearance: Present: cooperative, A&O X 3, obese, answers questions appropriately Exam: Neck supple. Chest bilateral clear, no added sounds. Tube assessment S2, no murmurs rubs or gallops. Abdomen soft, obese, nontender, bowel sounds are present. Extremities no edema Internal Medicine: Result - Labs CBC & Chem 7: 11/27/16 06:16 11/27/16 06:16 Labs: Short CBC 11/27/16 Range/Units 06:16 WBC 12.2 H (4.3-11.1) K/mcL Hgb 13.8 (12.9-16.9) g/dL Hct 41.1 (37.5-50.1) % Plt Count 238 (140-400) K/mcL Neutrophils # 10.9 H (1.6-8.9) K/mcL BMP 11/27/16 06:16 Sodium 129 L Potassium 4.5 Chloride 98 Carbon Dioxide 23 BUN 10 Creatinine 1.07 Glucose 152 H Calcium 8.9 Cardiac Enzymes 11/26/16 11/27/16 11/27/16 Range/Units 22:34 06:16 12:15 Troponin I 0.06 H* 0.03 0.02 (0-0.03) ng/mL Liver Function 11/27/16 Range/Units 06:16 Total Bilirubin 0.7 (0.2-1.2) mg/dL AST 13 (5-34) Units/L ALT 7 (0-55) Units/L Alkaline Phosphatase 75 (38-126) Units/L Albumin 2.7 L (3.5-5.0) g/dL - ABG Interpretation ABG results: PT/INR, D-dimer PT 14.9 Seconds (9.4-12.1) H 11/27/16 06:16 Consult Discharge Plan - Plan Referrals: Shabana Fulton, PLASTERER ROUGH [Advanced Practice Nurse] - 12/09/16 1:00 pm (Please follow up as schedule...)
[2016-11-27] MEDS: *HR* Rivaroxaban 10 MG TABLET PO SCH (16:27)
[2016-11-27] MEDS: *HR* Metoprolol 5 MG/5 ML VIAL IVP PRN (17:18)
[2016-11-27] MEDS: Levofloxacin 500 MG/100 ML 500 MG/100 ML BAG IVPB SCH (19:35)
[2016-11-27] MEDS: *HR* OxyCODONE Immed Rel 5 MG TABLET PO PRN (19:40)
[2016-11-27 20:19] LABS: Bilirubin,Urine Negative (Negative); Blood,Urine Trace (Negative); Clarity,Urine Clear (Clear); Color,Urine Yellow (Yellow); Glucose,Urine (UA) Normal (Normal); Ketones,Urine Negative (Negative); Leukocyte Esterase,Urine Negative (Negative); Nitrite,Urine Negative (Negative); Protein,Urine Trace mg/dL (Neg-Trace); Urobilinogen,Urine Normal (Normal)
[2016-11-27 20:22] LABS: Bacteria,Urine None Seen per hpf (None-Few); Hyaline Casts,Urine None Seen per lpf (None-Few); RBC,Urine 0-3 per hpf (0-3); Squamous Epithelial Cell,Urine Few per lpf (None-Few); WBC,Urine 0-3 per hpf (0-3)
--- NOTE | 2016-11-27 20:27 | Electrocardiograph Report ---
[facility] Test Date: 2016-11-27 Pat Name: ANNA VU Department: 112 Room: 2A25 Gender: M Aquatics Assistant Department Head: TLS : 1950 Requested By: Mann Gibbons Order Number: [id number] Reading MD: Devan Bolaños MD Measurements Intervals [place] Rate: 121 P: AK: 0 QRS: 72 QRSD: 91 T: -57 QT: 303 QTc: 375 Interpretive Statements ATRIAL FLUTTER WITH RAPID VENTRICULAR RESPONSE NONSPECIFIC ST \T\ T WAVE ABNORMALITY Electronically Signed On 11-27-16 20:26:34 EST by Devan Bolaños MD
--- NOTE | 2016-11-27 20:30 | Electrocardiograph Report ---
[facility] Test Date: 2016-11-27 Pat Name: romaine acevedo Department: 112 Room: 2A25 Gender: M Swing Type Lathe Operator: : 1950 Requested By: Jeremy Parekh Order Number: [id number] Reading MD: Devan Bolaños MD Measurements Intervals [place] Rate: 74 P: ME: 0 QRS: 63 QRSD: 86 T: -43 QT: 381 QTc: 408 Interpretive Statements ATRIAL FLUTTER Electronically Signed On 11-27-16 20:30:24 EST by Devan Bolaños MD
[2016-11-28] MEDS: Ipratropium/Albuterol Neb 3 ML IH SCH ×4 (04:32→23:25)
[2016-11-28 04:34] LABS: Hematocrit 38.4 % (37.5-50.1); Hemoglobin 12.9 g/dL (12.9-16.9); Mean Corpuscular HGB Conc 33.6 g/dL (31.6-35.5); Mean Corpuscular Volume 89.3 fL (83.0-100.0); Mean Platelet Volume 10.1 fL (9.4-12.4); Platelet Count 265 K/mcL (140-400); Red Cell Distribution Width 13.2 % (11.5-14.5)
[2016-11-28 04:39] LABS: Prothrombin Time 22.3 Seconds (9.4-12.1)
--- NOTE | 2016-11-28 07:58 | Oncology Inp Consult Note ---
Date of Encounter: 11/28/16 Time of Encounter: 07:55 - Data of Consult Patient: new to practice Consult date: 11/28/16 Requesting Physician: Jeremy Parekh Primary Care Provider: PCP NO - Consult Narrative Reason for consult: Suspicious lung mass History of present illness: Mr. Farias is a 66 year old gentleman seen in consultation for further evaluation/management of suspicious lung mass. He presented 11/26/16 with new-onset atrial fibrillation associated with chest pain and nonproductive cough and had a chest x-ray as part of his evaluation which showed poorly defined left midlung mass with tenting of the diaphragm. [place] to increased in size compared to chest CT 2011. This was further evaluated with a chest CT 11/27/16 which showed findings worrisome for neoplasm including the mediastinal and left hilar adenopathy contiguous with left central lung perihilar, amorphous mass causing postobstructive consolidation within the upper lingula. Bilateral adrenal gland masses worrisome for metastasis. Oncologist consulted for recommendations regarding evaluation and management to be suspicious lung mass. Patient seen and examined at bedside. Chart review for details of ongoing care by hospital team. Cardiology is on consult for his atrial fibrillation. Rate is now controlled on current measures. I reviewed the consultation report. Patient reports feeling considerably better compared to initial admission. Chest discomfort/respiratory symptoms considerably better. On reviewing his records, his chest CT on 12/05/11 showed a spiculated 2 cm left upper lobe nodule suspicious for primary malignancy and associated with enlarged left hilar lymphadenopathy, indeterminate, mildly enlarged mediastinal and right hilar nodes. Indeterminate portacaval nodes. Bronchoscopy and EBUSNA 12/30/11 returned negative for malignancy in left hilar node and left upper lobe lesion. CT-guided biopsy 01/11/12 was similarly negative for malignancy. Unfortunately, his procedure was complicated by left sided pneumothorax requiring hospitalization. His done well subsequently. Past medical, surgical, family, social history detailed below and verified with patient today. Review of systems: 12 point review of systems performed with patient and positive findings noted in history of present illness. All other systems are negative: Physical exam: Vital Signs Temp 98.0 F 11/28/16 04:00 Pulse 87 11/28/16 04:00 Resp 16 11/28/16 04:32 BP 143/75 11/28/16 04:00 Pulse Ox 95 11/28/16 04:32 GENERAL: * Alert and oriented, comfortable appearing. * Mental Status: Affect appropriate for circumstances HEENT: * Sclerae anicteric. No mucositis or thrush. * No other oral or pharyngeal lesions or erythema. Skin: * No rashes or petechiae. * No evidence of skin malignancy Lymph nodes: * No cervical, supraclavicular, axillary, or inguinal adenopathy. Lungs: * Clear to auscultation bilaterally. * Clear to percussion bilaterally. Cardiovascular: * Regular rate and rhythm. * No gallops, murmurs, or rubs. Abdomen: * Soft, nontender; * No organomegaly or masses palpable. Extremities: * No edema. No calf swelling or tenderness. * No joint deformity. Neurologic: * Alert, * normal gait; * no focal weakness or sensory abnormalities. Results: Laboratory Last Values WBC 20.0 K/mcL (4.3-11.1) H D 11/28/16 04:19 RBC 4.30 M/mcL (4.19-5.50) 11/28/16 04:19 Hgb 12.9 g/dL (12.9-16.9) 11/28/16 04:19 Hct 38.4 % (37.5-50.1) 11/28/16 04:19 MCV 89.3 fL (83.0-100.0) 11/28/16 04:19 MCH 30.0 pg (28.0-33.3) 11/28/16 04:19 MCHC 33.6 g/dL (31.6-35.5) 11/28/16 04:19 RDW 13.2 % (11.5-14.5) 11/28/16 04:19 Plt Count 265 K/mcL (140-400) 11/28/16 04:19 MPV 10.1 fL (9.4-12.4) 11/28/16 04:19 Immature Gran % 0.7 % (0-4) 11/27/16 06:16 Seg Neutrophils % 88.9 % 11/27/16 06:16 Lymphocytes % 8.1 % 11/27/16 06:16 Monocytes % 2.1 % 11/27/16 06:16 Eosinophils % 0.0 % 11/27/16 06:16 Basophils % 0.2 % 11/27/16 06:16 Neutrophils # 10.9 K/mcL (1.6-8.9) H 11/27/16 06:16 Lymphocytes # 1.0 K/mcL (0.6-4.6) 11/27/16 06:16 Monocytes # 0.3 K/mcL (0.0-1.3) 11/27/16 06:16 Eosinophils # 0.0 K/mcL (0.0-0.6) 11/27/16 06:16 Basophils # 0.0 K/mcL (0.0-0.2) 11/27/16 06:16 PT 22.3 Seconds (9.4-12.1) H 11/28/16 04:19 INR 2.0 11/28/16 04:19 APTT 35.0 Seconds (26.0-36.0) 11/28/16 04:19 VBG pH 7.44 pH Units (7.32-7.42) H 11/27/16 02:00 VBG pCO2 41 mmHg (41-51) 11/27/16 02:00 VBG pO2 77 mmHg (25-40) H 11/27/16 02:00 VBG HCO3 27.8 mEq/L (21-27) H 11/27/16 02:00 Sodium 129 mEq/L (136-145) L 11/27/16 06:16 Potassium 4.5 mEq/L (3.5-4.5) 11/27/16 06:16 Chloride 98 mEq/L (98-109) 11/27/16 06:16 Carbon Dioxide 23 mEq/L (19-29) 11/27/16 06:16 BUN 10 mg/dL (8-26) 11/27/16 06:16 Creatinine 1.07 mg/dL (0.72-1.25) 11/27/16 06:16 Est GFR ( Amer) > 60 (> 60) 11/27/16 06:16 Est GFR (Non-Af Amer) > 60 (> 60) 11/27/16 06:16 BUN/Creatinine Ratio 9 (6-26) 11/27/16 06:16 Glucose 152 mg/dL (70-99) H 11/27/16 06:16 Est Mean Plasma Glucose 120 mg/dl 11/27/16 06:16 Hemoglobin A1c 5.8 % (-5.6) H 11/27/16 06:16 Calculated Osmolality 270 (280-300) L 11/27/16 06:16 Calcium 8.9 mg/dL (8.6-10.8) 11/27/16 06:16 Ionized Calcium 1.08 mmol/L (1.15-1.35) L 11/27/16 02:00 Phosphorus 2.9 mg/dL (2.3-4.7) 11/27/16 06:16 Magnesium 1.7 mg/dL (1.6-2.6) 11/27/16 06:16 Total Bilirubin 0.7 mg/dL (0.2-1.2) 11/27/16 06:16 AST 13 Units/L (5-34) 11/27/16 06:16 ALT 7 Units/L (0-55) 11/27/16 06:16 Alkaline Phosphatase 75 Units/L (38-126) 11/27/16 06:16 Troponin I 0.02 ng/mL (0-0.03) 11/27/16 12:15 C-Reactive Protein 108 mg/L (Less than 5) H 11/27/16 06:16 B-Natriuretic Peptide 372 pg/mL (0-100) H 11/27/16 06:16 Serum Total Protein 7.3 g/dL (6.0-8.3) 11/27/16 06:16 Albumin 2.7 g/dL (3.5-5.0) L 11/27/16 06:16 Globulin 4.6 g/dL (2.4-3.5) H 11/27/16 06:16 Albumin/Globulin Ratio 0.6 (1.1-2.2) L 11/27/16 06:16 Triglycerides 64 mg/dL (< 150) 11/27/16 06:16 Cholesterol 145 mg/dL (< 200) 11/27/16 06:16 LDL Cholesterol, Calc 100 mg/dL (0-99) H 11/27/16 06:16 VLDL Cholesterol, Calc 13 mg/dL (< 31) 11/27/16 06:16 HDL Cholesterol 32 mg/dL (40-59) L 11/27/16 06:16 Cholesterol/HDL Ratio 4.5 (0-4.9) 11/27/16 06:16 Amylase 57 Units/L (25-125) 11/27/16 06:16 Lipase 75 Units/L (8-78) 11/27/16 06:16 TSH 1.942 mcIU/mL (0.350-4.840) 11/27/16 06:16 Urine Color Yellow (Yellow) 11/27/16 19:30 Urine Clarity Clear (Clear) 11/27/16 19:30 Urine pH 6.0 pH Units (5.0-8.0) 11/27/16 19:30 Ur Specific [place] 1.020 (1.010-1.025) 11/27/16 19:30 Urine Protein Trace mg/dL (Neg-Trace) 11/27/16 19:30 Urine Glucose (UA) Normal mg/dL (Normal) 11/27/16 19:30 Urine Ketones Negative mg/dL (Negative) 11/27/16 19:30 Urine Blood Trace (Negative) H 11/27/16 19:30 Urine Nitrite Negative (Negative) 11/27/16 19:30 Urine Bilirubin Negative (Negative) 11/27/16 19:30 Urine Urobilinogen Normal mg/dL (Normal) 11/27/16 19:30 Ur Leukocyte Esterase Negative (Negative) 11/27/16 19:30 Urine Microscopic RBC 0-3 per hpf (0-3) 11/27/16 19:30 Urine Microscopic WBC 0-3 per hpf (0-3) 11/27/16 19:30 Ur Squamous Epith Cells Few per lpf (None-Few) 11/27/16 19:30 Urine Bacteria None Seen per hpf (None-Few) 11/27/16 19:30 Hyaline Casts None Seen per lpf (None-Few) 11/27/16 19:30 Blood Type O NEGATIVE 11/27/16 06:16 Antibody Screen NEGATIVE 11/27/16 06:16 Radiographic studies: I personally reviewed and interpreted patient's most recent imaging studies dated 11/27/16. I discussed the findings with the patient today. Chest CT 11/27/16 15:30 IMPRESSION: Findings worrisome for neoplasm including mediastinal and left hilar adenopathy which is contiguous with the left central lung perihilar amorphous mass causing postobstructive consolidation within the upper and lingula. Bilateral adrenal gland masses are present worrisome for metastatic disease. D/ / Dianelys Villalobos Cha, MD / Dianelys Villaolbos Cha, MD Interpreting Provider: Dianelys Villalobos Cha, MD Impression/recommendations: Suspicious pulmonary mass: I had a detailed discussion with the patient today regarding diagnostic considerations for his current presentation. Given his extensive smoking history of more than 50 pack years, lung mass is malignant until proven otherwise. We discussed imperative of tissue diagnosis for appropriate treatment and prognostic recommendations. Understanding, he is leery of further invasive procedure due to previous experience with pneumothorax following needle biopsy on the same left lung. At the time of seeing the patient, I was unaware of previous imaging and clinical background. After seeing the patient, I reviewed his current scans and compared to previous scans from 2012. On my independent review, there is unequivocal difference between both scans and the overwhelming suspicion remains underlying malignancy. In spite of above, he is agreeable to have biopsy to establish a diagnosis. We did review the natural history and management of lung cancer in the event that is confirmed to have a malignancy and discussed NCCN guidelines including the importance of staging. Recommend CT abdomen and pelvis, brain MRI, bone scan for complete staging and to guide appropriate tissue sampling. If he has additional lesions concerning for distant metastatic disease, biopsy of such a distance that would be useful for diagnostic and staging purposes. Leukocytosis: This may be reactive in etiology as patient is on steroids and an antibiotics for COPD exacerbation. No other CBC abnormalities. Recommend CBC monitoring for improvement. If leukocytosis persistent, we'll consider peripheral smear review and peripheral blood flow cytometry for further evaluation. Patient's overall condition appears to be improving incrementally. If he is medically optimal for discharge, I will arrange for short interval outpatient follow-up for further recommendation based on results of pending biopsies. I gave him my card with my contact information as needed. We'll follow the patient along side you during this hospitalization but please do not hesitate to call regarding interval hematologic questions as they arise. Thank you for your excellent ongoing care for allowing us to see him while in- house. This report was created using voice recognition software and may contain errors. It was signed but not edited to expedite communication. Past Med Surg Social Fam HX - Past Medical History Medical history: arthritis, asthma, COPD, coronary artery disease, hyperlipidemia, hypertension, osteoporosis, other Psychiatric history: no psych history - Past Surgical History Surgical History: angioplasty/stent, cancer surgery (Biopsy left lung nodule/ mass.), other (CT-guided lung biopsy. Bronchoscopy.) - Social History Smoking Status: Current every day smoker Packs per day: 1+ppd ( x50yrs) Smokeless Tobacco Status: No Alcohol use: none Drug use: none - Family History Father Living Status: Age at : 74 Cause of : AR Hx Family Cardiac Disorders: Yes Medications and Allergies CloNIDine HCl [Kapvay] 0.2 mg PO BID 11/24/16 [History] Levofloxacin [Levaquin] 750 mg PO DAILY #7 tablet 11/24/16 [Rx] Lisinopril [Zestril] 40 mg PO DAILY 11/24/16 [History] Metoprolol [Lopressor] 25 mg PO BID 11/24/16 [History] Budesonide/Formoterol 160/4.5 [Symbicort 160/4.5] 1 puff IH BIDR 11/26/16 [ History] Clopidogrel [Plavix] 75 mg PO DAILY 11/26/16 [History] Hydrochlorothiazide 25 mg PO DAILY 11/26/16 [History] Pravastatin Sodium [Pravachol] 40 mg PO HS 11/26/16 [History] Acetaminophen [Tylenol] 500 mg PO Q6HR PRN 11/27/16 [History] Albuterol Sulfate [Ventolin Hfa] 2 puff IH Q4H PRN 11/27/16 [History] Ibuprofen [Motrin] 200 mg PO Q6HR PRN 11/27/16 [History] Allergies No Known Allergies Allergy (Verified 11/24/16 09:59) Oncology - Exam - Constitutional Vitals: Temp Pulse Resp BP Pulse Ox 98.0 F 87 16 143/75 95 11/28/16 04:00 11/28/16 04:00 11/28/16 04:32 11/28/16 04:00 11/28/16 04:32 Oncology - Results - Labs Labs: Short CBC 11/28/16 Range/Units 04:19 WBC 20.0 H D (4.3-11.1) K/mcL Hgb 12.9 (12.9-16.9) g/dL Hct 38.4 (37.5-50.1) % Plt Count 265 (140-400) K/mcL Cardiac Enzymes 11/27/16 Range/Units 12:15 Troponin I 0.02 (0-0.03) ng/mL Urine 11/27/16 Range/Units 19:30 Urine Color Yellow (Yellow) Urine Clarity Clear (Clear) Urine pH 6.0 (5.0-8.0) pH Units Ur Specific [place] 1.020 (1.010-1.025) Urine Protein Trace (Neg-Trace) mg/dL Urine Glucose (UA) Normal (Normal) mg/dL Consult Discharge Plan - Plan Referrals: Shabana Fulton, FORMULATOR [Advanced Practice Nurse] - 12/09/16 1:00 pm (Please follow up as schedule...)
[2016-11-28] MEDS: Doxycycline 100 MG CAPSULE PO SCH (08:21)
[2016-11-28] MEDS: Aspirin 81 MG TAB.CHEW PO SCH (08:21)
[2016-11-28] MEDS: Lisinopril 20 MG TABLET PO SCH (08:21)
[2016-11-28] MEDS: Diltiazem CD (24hr) 180 MG CAPSULE PO SCH (08:22)
[2016-11-28] MEDS: Levofloxacin 500 MG/100 ML 500 MG/100 ML BAG IVPB SCH (08:29)
[2016-11-28] MEDS: Nicotine 21 MG PATCH.TD24 TD SCH (08:34)
[2016-11-28 10:01] LABS: BUN/Creatinine Ratio 17 (6-26); Blood Urea Nitrogen 18 mg/dL (8-26); Calcium 8.8 mg/dL (8.6-10.8); Carbon Dioxide 25 mEq/L (19-29); Chloride 98 mEq/L (98-109); Glucose 134 mg/dL (70-99); Osmolality,Calculated 278 (280-300); Potassium 4.3 mEq/L (3.5-4.5); Sodium 132 mEq/L (136-145); eGFR For African Americans > 60 (> 60); eGFR For Non-African Americans > 60 (> 60)
--- NOTE | 2016-11-28 10:32 | Internal Med Progress Note ---
Date of Encounter: 11/28/16 Time of Encounter: 07:00 - Assessment and plan (1) Mass of left lung Current Visit: Yes Status: Acute Assessment and plan: concern for malignancy will ask interventional radiology to do CT guided biopy , pulmonology following as well (2) Pneumonia Current Visit: No Status: Acute Assessment and plan: POst obstructive start zosyn and levoquin incentive pulmonary toilette Qualifiers: Aspiration pneumonia type: unspecified Laterality: left Lung location: lower lobe of lung Qualified Code(s): J69.0 - Pneumonitis due to inhalation of food and vomit (3) Afib Current Visit: Yes Status: Chronic Assessment and plan: rate controlled per echo preserved EF AC on hold due to impending procedure Qualifiers: Atrial fibrillation type: chronic Qualified Code(s): I48.2 - Chronic atrial fibrillation - Time Spent With Patient 25 - 35 minutes - Subjective Interval history: Pt c/o productive cough, denies fever - Constitutional Vitals: Temp Pulse Resp BP Pulse Ox 97.7 F 80 20 132/84 97 11/28/16 08:32 11/28/16 08:32 11/28/16 08:32 11/28/16 08:32 11/28/16 08:32 General appearance: Present: cooperative, mild distress, A&O X 3, obese, answers questions appropriately - Respiratory Respiratory exam: Present: decreased breath sounds Additional comments: expiratory wheezes - Cardiovascular Cardiovascular exam: Present: +S1, +S2. Absent: RRR (irregular) - GI/Abdominal GI/Abdominal exam: Present: normal bowel sounds, soft - Extremities Exam Extremities exam: Present: warm, radial pulses palpable and symetrical Internal Medicine: Result - Labs CBC & Chem 7: 11/28/16 04:19 11/28/16 08:51 Labs: Short CBC 11/28/16 Range/Units 04:19 WBC 20.0 H D (4.3-11.1) K/mcL Hgb 12.9 (12.9-16.9) g/dL Hct 38.4 (37.5-50.1) % Plt Count 265 (140-400) K/mcL BMP 11/28/16 08:51 Sodium 132 L Potassium 4.3 Chloride 98 Carbon Dioxide 25 BUN 18 Creatinine 1.05 Glucose 134 H Calcium 8.8 Cardiac Enzymes 11/27/16 Range/Units 12:15 Troponin I 0.02 (0-0.03) ng/mL Urine 11/27/16 Range/Units 19:30 Urine Color Yellow (Yellow) Urine Clarity Clear (Clear) Urine pH 6.0 (5.0-8.0) pH Units Ur Specific [place] 1.020 (1.010-1.025) Urine Protein Trace (Neg-Trace) mg/dL Urine Glucose (UA) Normal (Normal) mg/dL - ABG Interpretation ABG results: PT/INR, D-dimer PT 22.3 Seconds (9.4-12.1) H 11/28/16 04:19 - Impressions Impressions Chest CT 11/27/16 15:30 IMPRESSION: Findings worrisome for neoplasm including mediastinal and left hilar adenopathy which is contiguous with the left central lung perihilar amorphous mass causing postobstructive consolidation within the upper and lingula. Bilateral adrenal gland masses are present worrisome for metastatic disease. D/ / Dianelys Villalobos Cha, MD / Dianelys Villalobos Cha, MD Interpreting Provider: Dianelys Villalobos Cha, MD Consult Discharge Plan - Plan Referrals: Shabana Fulton IMPROVEMENT SPECIALIST [Advanced Practice Nurse] - 12/09/16 1:00 pm (Please follow up as schedule...)
--- NOTE | 2016-11-28 11:59 | Cardiology Progress Note ---
Date of Encounter: 11/28/16 Time of Encounter: 11:57 Assessment and Plan (1) Atrial flutter with rapid ventricular response Current Visit: Yes Status: Acute Now rate controlled on PO BB Lopressor 50mg daily and PO Cardizem CD 180mg daily. 12 hour tele AVG HR 84, A-Flutter. CHADSVASC score 3 (Age, HTN, CAD). Recommend anticoagulation. Prefers NOAC-- Xarelto $8/month. Currently on hold for probable work-up of lung mass. Recommend resuming when able. Echo EF 65%, no significant valvular dysfunction. Symptoms of dyspnea and chest pain likely secondary to the A-Flutter with RVR, as symptoms improved/subsided with rate control. 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 TSH 1.942. Recommend outpt follow-up with EP, Dr. Rey Simeon to see if he is a candidate for A-Flutter ablation. Cardiology is signing off. Reconsult PRN. (2) CAD (coronary artery disease) Current Visit: Yes Status: Chronic Hx of CAD s/p angioplasty in 2010 to obtuse marginal branches. 60% proximal LAD stenosis remained. Stress test 05/2013 perfusion imaging was negative for ischemia or infarct. Mild TID was noted--1.19. Continue ASA, Statin, BB. Stopped Plavix since adding anticoagulation for A- Fib. Qualifiers: Coronary Disease-Associated Artery/Lesion type: [place] artery [place] vs. transplanted heart: [place] heart Associated angina: angina presence unspecified Qualified Code(s): I25.10 - Atherosclerotic heart disease of [place] coronary artery without angina pectoris (3) Elevated troponin Current Visit: Yes Status: Acute 0.06, 0.03 in setting of A-Flutter with RVR. Suspect demand ischemic, nondiagnostic for ACS. Echo EF preserved 65%. Continue ASA, Statin, BB. (4) Chest pain Current Visit: Yes Status: Acute Midsternal chest pain was in setting of A-Flutter with RVR--subsided with rate control--only recurrence has been with coughing, pleuritic in nature. Mild troponin elevation 0.06 in setting of RVR. EF preserved on echo 65%--no ischemic work-up warranted as inpt. Qualifiers: Chest pain type: unspecified Qualified Code(s): R07.9 - Chest pain, unspecified (5) Hyponatremia Current Visit: Yes Status: Acute Improved today 132. Discussion w patient/family: The assessment and plan as outlined above was discussed with the patient and/or family members who expressed understanding and agreement. All questions were answered. Thank you for involving us in the care of your patient. Please call with any questions. I will discuss all the above with Dr. Hsu and make changes as necessary. Subjective Principal diagnosis: A-flutter, lung mass Interval history: Now rate controlled--12 hour tele AVG HR 84, A-Flutter. Chest CT showed concerns of malignancy--Xarelto on hold since further evaluation/biopsy is likely. Xarelto larkin check $8/month. Echo showed preserved EF 65%, no significant valvular dysfunction. Pt denies chest pain or palpitations this AM. Denies acute dyspnea, although he states he feels better with O2 on. Objective Vital Signs, Last 4 Hours Temp Pulse Resp BP Pulse Ox 11/28/16 11:13 97.8 F 79 20 129/90 97 11/28/16 10:00 97 11/28/16 09:00 97 11/28/16 08:32 97.7 F 80 20 132/84 97 11/28/16 08:00 95 Vital Signs Temp Pulse Resp BP Pulse Ox 11/28/16 11:13 97.8 F 79 20 129/90 97 11/28/16 10:00 97 11/28/16 09:00 97 11/28/16 08:32 97.7 F 80 20 132/84 97 11/28/16 08:00 95 11/28/16 04:32 16 95 11/28/16 04:00 98.0 F 87 18 143/75 96 11/28/16 00:00 97.8 F 91 17 129/76 97 11/27/16 23:26 17 95 11/27/16 20:05 98.5 F 108 17 115/78 96 11/27/16 16:09 97.9 F 88 18 111/73 96 11/27/16 15:58 18 96 Intake and Output 11/27/16 11/28/16 11/28/16 23:59 07:59 15:59 Intake Total 400 / 400 700 / 700 300 / 300 Output Total 700 / 700 500 / 500 0 / 0 Balance -300 / -300 200 / 200 300 / 300 Intake: IV Fluids 100 / 100 Levaquin 500mg/100mL 500 100 / 100 mg In 100 ml @ 100 mls/hr IVPB DAILY [facility] Rx#: [id number] Oral 400 / 400 600 / 600 300 / 300 Output: Urine 700 / 700 500 / 500 0 / 0 Other: # Voids 1 1 Weight 115.4 kg Patient Weight 11/28/16 23:59 Weight 115.4 kg General: Conversant, No Apparent Distress HEENT: Atraumatic, Normocephaly, Mucus Membranes Moist Neck: No JVD, Normal carotid pulses Cardiac: Other (irregular) Lungs: Normal Breath Sounds, No Wheeze, Rales, Rhonchi Neuro: Alert and responsive, No focal deficits noted Abdomen: Soft, Non-Tender Skin: No rashes noted on visualized skin Musculoskeletal: No Chest Wall Tenderness Extremities: No Clubbing, No Cyanosis, No Edema, Normal Pulses Results 11/28/16 04:19 11/28/16 08:51 Lab Results 11/27/16 11/27/16 11/28/16 12:15 12:15 04:19 WBC 20.0 H D Hgb 12.9 Hct 38.4 Plt Count 265 INR APTT 67.5 H Sodium Potassium Chloride Carbon Dioxide BUN Creatinine Glucose Calcium Troponin I 0.02 11/28/16 11/28/16 04:19 08:51 WBC Hgb Hct Plt Count INR 2.0 APTT 35.0 Sodium 132 L Potassium 4.3 Chloride 98 Carbon Dioxide 25 BUN 18 Creatinine 1.05 Glucose 134 H Calcium 8.8 Troponin I Short CBC 11/28/16 Range/Units 04:19 WBC 20.0 H D (4.3-11.1) K/mcL Hgb 12.9 (12.9-16.9) g/dL Hct 38.4 (37.5-50.1) % Plt Count 265 (140-400) K/mcL BMP 11/28/16 Range/Units 08:51 Sodium 132 L (136-145) mEq/L Potassium 4.3 (3.5-4.5) mEq/L Chloride 98 (98-109) mEq/L Carbon Dioxide 25 (19-29) mEq/L BUN 18 (8-26) mg/dL Creatinine 1.05 (0.72-1.25) mg/dL Glucose 134 H (70-99) mg/dL Calcium 8.8 (8.6-10.8) mg/dL Cardiac Enzymes 11/27/16 Range/Units 12:15 Troponin I 0.02 (0-0.03) ng/mL Urine 11/27/16 Range/Units 19:30 Urine Color Yellow (Yellow) Urine Clarity Clear (Clear) Urine pH 6.0 (5.0-8.0) pH Units Ur Specific [place] 1.020 (1.010-1.025) Urine Protein Trace (Neg-Trace) mg/dL Urine Glucose (UA) Normal (Normal) mg/dL Impressions Chest CT 11/27/16 15:30 IMPRESSION: Findings worrisome for neoplasm including mediastinal and left hilar adenopathy which is contiguous with the left central lung perihilar amorphous mass causing postobstructive consolidation within the upper and lingula. Bilateral adrenal gland masses are present worrisome for metastatic disease. D/ / Dianelys Villalobos Cha, MD / Dianelys Villalobos Cha, MD Interpreting Provider: Dianelys Villalobos Cha, MD Active Medications Acetaminophen (Tylenol) 650 mg PO Q6HR PRN PRN Reason: Mild Pain (1-3) Stop: 05/28/17 22:02 Al Hydrox/Mg Hydrox/Simethicone (Maalox) 15 ml PO Q6HR PRN PRN Reason: Dyspepsia Stop: 05/28/17 22:02 Albuterol Sulfate (Proventil Neb) 2.5 mg IH Q2H PRN PRN Reason: Shortness Of Breath/Wheezing Stop: 05/29/17 00:49 Albuterol/Ipratropium (Duoneb) 3 ml IH QIDR [facility] Stop: 05/29/17 05:01 Last Admin: 11/28/16 11:49 Dose: 3 ml Aspirin (Aspirin) 81 mg PO DAILY [facility] Stop: 05/29/17 09:01 Last Admin: 11/28/16 08:21 Dose: 81 mg Calcium Carbonate (Tums) 1,000 mg PO Q4HR PRN; Protocol PRN Reason: Heartburn/Dyspepsia Stop: 05/29/17 12:50 Diltiazem HCl (Cardizem Cd) 180 mg PO DAILY [facility] Stop: 05/29/17 10:31 Last Admin: 11/28/16 08:22 Dose: 180 mg Docusate Sodium (Colace) 100 mg PO BID [facility] Stop: 05/29/17 09:01 Last Admin: 11/28/16 08:21 Dose: 100 mg Guaifenesin (Mucinex) 600 mg PO BID [facility] Stop: 05/29/17 09:01 Last Admin: 11/28/16 08:22 Dose: 600 mg Levofloxacin/Dextrose (Levaquin 500mg/100ml) 500 mg in 100 mls @ 100 mls/hr IVPB DAILY [facility] PRN Reason: Protocol Stop: 05/29/17 19:01 Last Admin: 11/28/16 08:29 Dose: 100 mls/hr Piperacillin Sod/Tazobactam (Sod 3.375 gm/ Dextrose) 100 mls @ 25 mls/hr IVPB Q8HR [facility] PRN Reason: Protocol Stop: 05/30/17 16:01 Lisinopril (Zestril) 40 mg PO DAILY [facility] Stop: 05/29/17 09:01 Last Admin: 11/28/16 08:21 Dose: 40 mg Magnesium Hydroxide (Milk Of Magnesia Conc) 10 ml PO DAILY PRN PRN Reason: Indigestion Stop: 05/28/17 22:02 Metoprolol Tartrate (Lopressor) 5 mg IVP Q6HR PRN PRN Reason: SEE COMMENTS Stop: 05/29/17 00:49 Last Admin: 11/27/16 17:18 Dose: 5 mg Metoprolol Tartrate (Lopressor) 50 mg PO BID [facility] Stop: 05/29/17 21:01 Last Admin: 11/28/16 08:28 Dose: 50 mg Naloxone HCl (Narcan) 0.4 mg IVP Q2MIN PRN PRN Reason: Opioid Reversal Stop: 05/28/17 22:02 Nicotine (Nicoderm) 21 mg TD DAILY [facility] PRN Reason: Protocol Stop: 05/29/17 09:01 Last Admin: 11/28/16 08:34 Dose: 21 mg Nitroglycerin (Nitroglycerin) 0.4 mg SL Q5MIN PRN PRN Reason: Chest Pain Stop: 05/29/17 00:49 Oxycodone HCl (Roxicodone) 5 mg PO Q6HR PRN PRN Reason: Moderate Pain (4-6) Stop: 05/29/17 12:45 Last Admin: 11/27/16 19:40 Dose: 5 mg Oxycodone HCl (Roxicodone) 10 mg PO Q6HR PRN PRN Reason: Severe Pain (7-10) Stop: 05/28/17 22:02 Promethazine HCl (Phenergan) 12.5 mg IVP Q6HR PRN PRN Reason: Nausea And Vomiting Stop: 05/28/17 22:02 Rivaroxaban (Xarelto) 20 mg PO 1700 [place] Stop: 05/29/17 17:01 Last Admin: 11/27/16 16:27 Dose: 20 mg Simvastatin (Zocor) 40 mg PO HS [place] Stop: 05/29/17 21:01 Last Admin: 11/27/16 19:34 Dose: 40 mg - Imaging and Cardiology Echo: report reviewed (EF 65%, no significant valvular dysfunction) - EKG Interpretation EKG results cardiology: other (12 hour tele AVG HR 84, A-Flutter) - VTE Documentation of Mechanical Device: Graduated compression elastic hosiery Consult Discharge Plan - Plan Referrals: Shabana Fulton, MOBILE THERAPIST [Advanced Practice Nurse] - 12/09/16 1:00 pm (Please follow up as schedule...)
--- NOTE | 2016-11-28 16:33 | Electrocardiograph Report ---
[facility] Test Date: 2016-11-27 Pat Name: ANNA VU Department: 112 Room: 2A25 Gender: M [employer]: : 1950 Requested By: Jeremy Parekh Order Number: [id number] Reading MD: Flaco Ayala DO Measurements Intervals [place] Rate: 97 P: GA: 0 QRS: 64 QRSD: 91 T: -6 QT: 347 QTc: 401 Interpretive Statements Atrial flutter PVC or aberrant conduction Electronically Signed On 11-28-16 16:32:28 EST by Flaco Ayala DO
[2016-11-28] MEDS: Piperacillin/Tazobactam 3.375 GM in D5% in Water (Mini-Bag+) 100 ML IVPB SCH ×2 (16:55→23:50)
[2016-11-28] MEDS ORDERED: Nicotine 21 MG PATCH.TD24 TD ONE (17:02)
[2016-11-28] MEDS: *HR* OxyCODONE Immed Rel 5 MG TABLET PO PRN (20:17)
[2016-11-28] MEDS: Mag Hydrox/Al Hydrox/Simeth 30 ML UDC PO PRN (20:18)
[2016-11-29] MEDS: Ipratropium/Albuterol Neb 3 ML IH SCH ×4 (03:49→22:32)
[2016-11-29] MEDS: *HR* Metoprolol 5 MG/5 ML VIAL IVP PRN (05:32)
[2016-11-29 06:02] LABS: Hematocrit 41.4 % (37.5-50.1); Hemoglobin 13.7 g/dL (12.9-16.9); Mean Corpuscular HGB Conc 33.1 g/dL (31.6-35.5); Mean Corpuscular Hemoglobin 30.2 pg (28.0-33.3); Mean Corpuscular Volume 91.2 fL (83.0-100.0); Platelet Count 249 K/mcL (140-400); Red Blood Count 4.54 M/mcL (4.19-5.50); Red Cell Distribution Width 13.2 % (11.5-14.5)
[2016-11-29 06:07] LABS: INR 1.4; Prothrombin Time 14.7 Seconds (9.4-12.1)
[2016-11-29 06:10] LABS: Activated Partial Thrombo Time 31.9 Seconds (26.0-36.0)
[2016-11-29 06:17] LABS: Alanine Aminotransferase 13 Units/L (0-55); Albumin 2.7 g/dL (3.5-5.0); Albumin/Globulin Ratio 0.6 (1.1-2.2); Alkaline Phosphatase 66 Units/L (38-126); Aspartate Amino Transferase 17 Units/L (5-34); BUN/Creatinine Ratio 16 (6-26); Bilirubin,Total 0.3 mg/dL (0.2-1.2); Blood Urea Nitrogen 18 mg/dL (8-26); Calcium 8.8 mg/dL (8.6-10.8); Carbon Dioxide 27 mEq/L (19-29); Chloride 100 mEq/L (98-109); Globulin 4.3 g/dL (2.4-3.5); Glucose 105 mg/dL (70-99); Osmolality,Calculated 276 (280-300); Potassium 4.1 mEq/L (3.5-4.5); Sodium 132 mEq/L (136-145); eGFR For African Americans > 60 (> 60); eGFR For Non-African Americans > 60 (> 60)
[2016-11-29] MEDS: *HR* OxyCODONE Immed Rel 5 MG TABLET PO PRN ×3 (08:28→21:45)
[2016-11-29] MEDS: Nicotine 21 MG PATCH.TD24 TD SCH (08:29)
[2016-11-29] MEDS: Diltiazem CD (24hr) 180 MG CAPSULE PO SCH (08:30)
[2016-11-29] MEDS: Lisinopril 20 MG TABLET PO SCH (08:31)
[2016-11-29] MEDS: Aspirin 81 MG TAB.CHEW PO SCH (08:31)
[2016-11-29] MEDS: Levofloxacin 500 MG/100 ML 500 MG/100 ML BAG IVPB SCH (08:39)
[2016-11-29] MEDS: Piperacillin/Tazobactam 3.375 GM in D5% in Water (Mini-Bag+) 100 ML IVPB SCH ×3 (09:58→23:21)
--- NOTE | 2016-11-29 15:39 | Internal Med Progress Note ---
Date of Encounter: 11/29/16 Time of Encounter: 11:00 - Assessment and plan (1) Mass of left lung Current Visit: Yes Status: Acute Assessment and plan: with mediastinal involvement and possible mets to adrenals, pt schedule for CT guided biopsy on thursday. off anticoagulation for now (2) Pneumonia Current Visit: No Status: Acute Assessment and plan: post obstructive pneumonia , improving incentive spirometry Qualifiers: Aspiration pneumonia type: unspecified Laterality: left Lung location: lower lobe of lung Qualified Code(s): J69.0 - Pneumonitis due to inhalation of food and vomit (3) Afib Current Visit: Yes Status: Chronic Qualifiers: Atrial fibrillation type: chronic Qualified Code(s): I48.2 - Chronic atrial fibrillation (4) Atrial fibrillation and flutter Current Visit: Yes Status: Acute Assessment and plan: rate controlled off xarelto impending surgical procedure on thursday - Subjective Interval history: Pt denies chest pain SOB, improving - Constitutional Vitals: Temp Pulse Resp BP Pulse Ox 97.8 F 89 16 114/80 97 11/29/16 11:00 11/29/16 11:00 11/29/16 11:00 11/29/16 11:00 11/29/16 11:00 General appearance: Present: cooperative, mild distress, A&O X 3, obese, answers questions appropriately - Respiratory Respiratory exam: Present: decreased breath sounds Additional comments: scattered wheezes - Cardiovascular Cardiovascular exam: Present: irregular rhythm, +S1, +S2. Absent: RRR - GI/Abdominal GI/Abdominal exam: Present: normal bowel sounds, soft - Extremities Exam Extremities exam: Present: normal inspection, radial pulses palpable and symetrical - Neurological Exam Neurological exam: Present: no focal deficits Internal Medicine: Result - Labs CBC & Chem 7: 11/29/16 05:52 11/29/16 05:52 Labs: Short CBC 11/29/16 Range/Units 05:52 WBC 14.6 H (4.3-11.1) K/mcL Hgb 13.7 (12.9-16.9) g/dL Hct 41.4 (37.5-50.1) % Plt Count 249 (140-400) K/mcL BMP 11/29/16 05:52 Sodium 132 L Potassium 4.1 Chloride 100 Carbon Dioxide 27 BUN 18 Creatinine 1.14 Glucose 105 H Calcium 8.8 Liver Function 11/29/16 Range/Units 05:52 Total Bilirubin 0.3 (0.2-1.2) mg/dL AST 17 (5-34) Units/L ALT 13 (0-55) Units/L Alkaline Phosphatase 66 (38-126) Units/L Albumin 2.7 L (3.5-5.0) g/dL - ABG Interpretation ABG results: PT/INR, D-dimer PT 14.7 Seconds (9.4-12.1) H 11/29/16 05:52 - Impressions Impressions Bone Scan Nuclear Medicine 11/28/16 10:40 IMPRESSION: 1. No convincing evidence of skeletal metastatic disease. 2. Focal activity in the left lateral mid cervical spine is favored to represent degenerative change. Isolated skeletal metastatic disease is considered less likely. D/ / Tristen Roe MD / Tristen Roe MD Interpreting Provider: Tristen Roe MD - VTE Documentation of Mechanical Device: Graduated compression elastic hosiery Consult Discharge Plan - Plan Referrals: Shabana Fulton, BRUSH OR BROOM CUTTER [Advanced Practice Nurse] - 12/09/16 1:00 pm (Please follow up as schedule...)
[2016-11-29] MEDS: Lactobacillus 1 EACH CAP.SPRINK PO SCH (21:40)
[2016-11-29] MEDS: Mag Hydrox/Al Hydrox/Simeth 30 ML UDC PO PRN (23:21)
[2016-11-30] MEDS: Ipratropium/Albuterol Neb 3 ML IH SCH ×4 (04:46→23:20)
[2016-11-30 06:07] LABS: Hematocrit 40.9 % (37.5-50.1); Hemoglobin 13.8 g/dL (12.9-16.9); Mean Corpuscular HGB Conc 33.7 g/dL (31.6-35.5); Mean Corpuscular Hemoglobin 30.5 pg (28.0-33.3); Mean Corpuscular Volume 90.3 fL (83.0-100.0); Mean Platelet Volume 9.9 fL (9.4-12.4); Platelet Count 264 K/mcL (140-400); Red Blood Count 4.53 M/mcL (4.19-5.50); Red Cell Distribution Width 13.2 % (11.5-14.5)
[2016-11-30 06:09] LABS: INR 1.3; Prothrombin Time 14.1 Seconds (9.4-12.1)
[2016-11-30 06:11] LABS: Activated Partial Thrombo Time 31.7 Seconds (26.0-36.0)
[2016-11-30] MEDS: *HR* OxyCODONE Immed Rel 5 MG TABLET PO PRN ×2 (06:33→20:38)
[2016-11-30] MEDS: Piperacillin/Tazobactam 3.375 GM in D5% in Water (Mini-Bag+) 100 ML IVPB SCH ×2 (09:52→16:38)
[2016-11-30] MEDS: Nicotine 21 MG PATCH.TD24 TD SCH (09:54)
[2016-11-30] MEDS: levoFLOXacin 500 MG TABLET PO SCH (09:55)
[2016-11-30] MEDS: Diltiazem CD (24hr) 180 MG CAPSULE PO SCH (09:55)
[2016-11-30] MEDS: Lactobacillus 1 EACH CAP.SPRINK PO SCH ×2 (09:55→20:34)
[2016-11-30] MEDS: Aspirin 81 MG TAB.CHEW PO SCH (09:56)
--- NOTE | 2016-11-30 13:52 | Internal Med Progress Note ---
Date of Encounter: 11/30/16 Time of Encounter: 13:51 - Assessment and plan (1) Mass of left lung Current Visit: Yes Status: Acute Assessment and plan: With mediastinal involvement and possible mets to adrenals, pt scheduled for CT guided biopsy tomorrow. off anticoagulation for now. NPO after thursday. Might d/c after biopsy and follow up as outpatient. Brain MRI without evidence of mets. Bone scan report noted, no conclusive evident of mets. (2) Atrial flutter with rapid ventricular response Current Visit: Yes Status: Acute Assessment and plan: Now rate controlled. CHADSVASC score 3 (Age, HTN, CAD). - Time Spent With Patient 25 - 35 minutes - Subjective Interval history: Patient was seen and examined on rounds. He denied shortness of breath, he states that he was nauseous and vomited once this morning. Otherwise, denies fever, chest pain, shortness of breath. - Constitutional Vitals: Temp Pulse Resp BP Pulse Ox 97.6 F 56 16 146/91 97 11/30/16 10:49 11/30/16 10:49 11/30/16 13:32 11/30/16 10:49 11/30/16 13:32 General appearance: Present: cooperative, mild distress, A&O X 3, obese, answers questions appropriately - Head Head exam: Present: atraumatic, normocephalic - Eye Eye exam: Present: PERRL, conjuntiva pink, sclera anicteric Pupils: Present: PERRL - Neck Neck exam general surgery: Present: supple, trachea midline. Absent: lymphadenopathy - Respiratory Respiratory exam: Absent: accessory muscle use, rales, rhonchi, wheezes Additional comments: wheezing in left upper lobe - Cardiovascular Cardiovascular exam: Present: RRR, +S1, +S2. Absent: diastolic murmur, gallop, rubs, systolic murmur - GI/Abdominal GI/Abdominal exam: Present: normal bowel sounds, soft, no peritoneal signs. Absent: distended, tenderness - Extremities Exam Extremities exam: Present: warm, radial pulses palpable and symetrical. Absent : calf tenderness, cyanotic, pedal edema - Neurological Exam Neurological exam: Present: CN II-XII intact, oriented X3, no focal deficits. Absent: pronater drift, facial droop, speech deficit - Skin Skin exam: Present: dry, intact Internal Medicine: Result - Labs CBC & Chem 7: 11/30/16 05:41 11/29/16 05:52 Labs: Short CBC 11/30/16 Range/Units 05:41 WBC 12.8 H (4.3-11.1) K/mcL Hgb 13.8 (12.9-16.9) g/dL Hct 40.9 (37.5-50.1) % Plt Count 264 (140-400) K/mcL - ABG Interpretation ABG results: PT/INR, D-dimer PT 14.1 Seconds (9.4-12.1) H 11/30/16 05:41 - VTE Documentation of Mechanical Device: Graduated compression elastic hosiery Consult Discharge Plan - Plan Referrals: Shabana Fulton, SPECIAL PROCEDURE TECHNOLOGIST [Advanced Practice Nurse] - 12/09/16 1:00 pm (Please follow up as schedule...)
[2016-12-01] MEDS: Piperacillin/Tazobactam 3.375 GM in D5% in Water (Mini-Bag+) 100 ML IVPB SCH (01:17)
[2016-12-01] MEDS: *HR* OxyCODONE Immed Rel 5 MG TABLET PO PRN ×2 (01:35→10:09)
[2016-12-01 04:21] LABS: Basophils % 0.4 %; Hematocrit 41.1 % (37.5-50.1); Hemoglobin 13.6 g/dL (12.9-16.9); Immature Granulocytes % 0.5 % (0-4); Lymphocytes # 2.2 K/mcL (0.6-4.6); Mean Corpuscular HGB Conc 33.1 g/dL (31.6-35.5); Mean Corpuscular Hemoglobin 29.9 pg (28.0-33.3); Mean Corpuscular Volume 90.3 fL (83.0-100.0); Mean Platelet Volume 9.8 fL (9.4-12.4); Monocytes # 0.9 K/mcL (0.0-1.3); Monocytes % 7.7 %; Neutrophils # 8.3 K/mcL (1.6-8.9); Platelet Count 255 K/mcL (140-400); Red Blood Count 4.55 M/mcL (4.19-5.50); Red Cell Distribution Width 13.2 % (11.5-14.5); Segmented Neutrophils % 72.4 %
[2016-12-01] MEDS: Ipratropium/Albuterol Neb 3 ML IH SCH ×3 (04:41→16:17)
[2016-12-01 04:42] LABS: BUN/Creatinine Ratio 13 (6-26); Blood Urea Nitrogen 13 mg/dL (8-26); Calcium 8.9 mg/dL (8.6-10.8); Carbon Dioxide 24 mEq/L (19-29); Chloride 98 mEq/L (98-109); Glucose 102 mg/dL (70-99); Osmolality,Calculated 270 (280-300); Potassium 4.1 mEq/L (3.5-4.5); Sodium 130 mEq/L (136-145); eGFR For African Americans > 60 (> 60); eGFR For Non-African Americans > 60 (> 60)
--- NOTE | 2016-12-01 09:16 | Discharge Summary ---
Date of Encounter: 12/01/16 Time of Encounter: 09:11 - Discharge Diagnosis (1) Mass of left lung Priority: Primary Status: Acute (2) Atrial flutter with rapid ventricular response Priority: Secondary Status: Acute - Discharge Medications Prescriptions: Aspirin 81 mg PO DAILY #30 tab.chew Diltiazem CD (24hr) [Cardizem CD] 180 mg PO DAILY #30 cap.er.24h Lisinopril [Zestril] 5 mg PO DAILY #30 tablet Rivaroxaban [Xarelto] 20 mg PO 1700 #30 tablet Home Medications: CloNIDine HCl [Kapvay] 0.2 mg PO BID 11/24/16 [History] Metoprolol [Lopressor] 25 mg PO BID 11/24/16 [History] Budesonide/Formoterol 160/4.5 [Symbicort 160/4.5] 1 puff IH BIDR 11/26/16 [ History] Hydrochlorothiazide 25 mg PO DAILY 11/26/16 [History] Pravastatin Sodium [Pravachol] 40 mg PO HS 11/26/16 [History] Acetaminophen [Tylenol] 500 mg PO Q6HR PRN 11/27/16 [History] Albuterol Sulfate [Ventolin Hfa] 2 puff IH Q4H PRN 11/27/16 [History] Aspirin 81 mg PO DAILY #30 tab.chew 12/01/16 [Rx] Diltiazem CD (24hr) [Cardizem CD] 180 mg PO DAILY #30 cap.er.24h 12/01/16 [Rx] Lisinopril [Zestril] 5 mg PO DAILY #30 tablet 12/01/16 [Rx] Rivaroxaban [Xarelto] 20 mg PO 1700 #30 tablet 12/01/16 [Rx] Allergies/Adverse Reactions: Allergies No Known Allergies Allergy (Verified 11/24/16 09:59) Procedures/tests Complete & Pending: Procedures Performed prior 72 hours Category Date Time Status CT abd pelvis w iv no oral [CT] Routine Cat Scan 11/28/16 14:00 Completed NM bone scan whole body [NM] Routine Exams 11/28/16 10:40 Completed MR head/brain wo/w con [MR] Routine MRI 11/28/16 10:40 Completed Date of admission: 11/26/16 21:49 Primary care physician: PCP NO Consults: 11/27/16 00:48 Consult to Cardiac Rehabilitation-Phase1 [CONS] Routine Comment: Reason for Consult: AMI Call Completed: Yes Consult to Nurse Navigator [CONS] Routine Comment: Consult to Nurse Navigator [CONS] Routine Comment: 11/27/16 07:00 Consult to Cardiology [CONS] Routine Comment: Consulting Provider: [facility] [place] Reason for Consult: ACS/UA with positive troponin elevation and new-onset atrial fibrillation-RVR. Multiple risk factors. JERED score 5. Please evaluate and advise. Time Notified: 01:00 Call Completed: No 11/27/16 18:51 Consult to Oncology [CONS] Routine Consulting Provider: [facility] [place] Reason for Consult: please evaluate for left lung mass concerning for malignancy with possible adrenal mets for further management. Call Completed: No Consult to Pulmonology [CONS] Routine Consulting Provider: [facility] [place] Reason for Consult: please evaluate for lung mass with possible mets to adrenal gland, for further management. Call Completed: No 11/28/16 08:52 Consult to Weight Engineer [CONS] Routine Reason for SW Consult: possible need for home oxygen 11/28/16 10:27 Consult to Interventional Radiology [CONS] Routine Consulting Provider: Radiology [facility] Reason for Consult: CT guided biopsy of lung mass Call Completed: Yes Discharging clinician: Yohannes Randhawa Anticipated date of discharge: 12/01/16 - Patient Status Disposition: Home, Self-Care Condition: Fair Functional capacity at discharge: independent ambulation Overall status at discharge: patient is back to baseline - Discharge Instructions Follow Up With: Shabana Fulton, TRAFFIC REPORTER [Advanced Practice Nurse] - 12/09/16 1:00 pm (Please follow up as schedule...) Additional Instructions: Follow with oncology as outpatient. - Diet and Activity Activity: increase activity as tolerated Diet: advance to your usual diet Interval History: Mr. Farias is a 66 year old male with significant history for CAD/PTCAstents x2/AMI, COPD, asthma, hypertension, dyslipidemia, osteoarthritis, osteopenia, H/ O pneumothorax, H/O ?benign left lung mass, obesity, nicotine dependency The patient was visited and interviewed and examined. The patient is admitted to [facility] as a hospital transfer from [facility] emergency department for interventions pertaining to recently defined to new onset atrial fibrillation with a ventricular response in the setting of recurrent angina pectoris. The patient acknowledged being ill for approximately 2 weeks with upper respiratory tract infection. He was seen at a local urgent care center the evening before presenting to the [facility] ED. He was placed on an antibiotic (Zpac) to managed out to be acute bronchitis/community-acquired pneumonia. He completed the initial course of antibiotic and returned to the urgent care center and was initiated on a stronger antibiotic (Augmentin) as the patient felt that he was still symptomatic of chest congestion and nonproductive cough generalized malaise. However he was brought by EMS services to the [facility] emergency department because of acute onset of sharp discomfort in the epigastrium. The cough is described as nonproductive. There was no evidence of hemoptysis hematemesis melena epistaxis. Patient acknowledges postnasal drainage sore throat and wheezing. Denies the fever or chills sweats. Acknowledged shortness of breath at rest and with activity. Persistent moderate to severe in nature over a two-week period of time. Respiratory difficulties cough wheezing and shortness of air worsened with activity symptoms seem to diminish severity with rest. The epigastric pain especially seem to be exertional in nature. He denied any dietary recreational medication related questions. He is a continued smoker. He acknowledges diminished use of tobacco last 2 weeks and more so in the last 2-3 days due to his illness. Findings in the ED: Temperature 98.6 pulse 102 -162 respiration 12-20 and BP 143/78-100 O2 saturation 98% liters per nasal cannula. WBC 13.6 hemoglobin 14.4 platelets 249 ,000. Differential shows an increase in neutrophils. PT 16.2 INR 1.5. Metabolic panel sodium 132 chloride 96. BUN 10 creatinine 1.1. Glucose 109 osmolality 274. Albumin 2.9 total 7.2. Globulin 4.3. Troponin 0.07 0.08. BNP 239. Chest x-ray demonstrates poorly defined left mid lung mass with tenting of the lateral diaphragm. 7 cm or more in size. Mass is increased in size since CT scan of 2011. EKG demonstrates atrial fibrillation with RVR rate 163. Incomplete right bundle branch block. No acute ischemic changes. Preliminary impression suggests ACS/UA against background of persistent upper respiratory tract infection and generalized malaise. Demand ischemia of myocardium with a secondary troponin elevation and flash pulmonary edema not unlikely progression of events. Screening studies consistent with a systemic inflammatory response syndrome criteria met. Patient has COPD exacerbation with acute on chronic bronchitis exacerbation as a consequence. No discrete pneumonia has been defined. The large left upper lobe mass does create compression of the lung tissue predisposing to postobstructive pneumonia and atelectasis of distal lung sections. He does report however that his biopsy of this lesion in the past was benign and he has not sought follow-up for quite some time and the mass is considerably increased in size. Evaluation for possible malignant change in this mass is warranted. He is not toxic or acutely ill as relates to respiratory complaints. Sepsis criteria and are not fully met at the time of this admission. The patient however is at increased risk for acute clinical decline and morbidity. JERED score approximate 5-6. This equates to 26%-41% risk of 14 day cause mortality, and recurrent MO, and/ or severe recurrent ischemia requiring urgent vascularization. Workup and treatment will progress comprehensively. Cumulative laboratory and radiographic data base was reviewed, considered and discussed. Pertinent ancillary medical records including ECW and PCI documentation, when available, was reviewed and considered. Given the patient's presenting concerns, past medical history, clinical findings and symptoms, he is admitted at this time will undergo further evaluation and disposition. Orders were written as per the computerized physician pharmacy order entry technician system.......................................................................... .................... Consultative opinion and will be sought as clinical circumstances justify. Initial consultative opinion has been requested of cardiology. Pain management needs will be addressed. Laboratory and radiographic data base will be updated as appropriate. Studies include: Cultures of blood and urine and sputum, cardiac injury panel, BNP, metabolic and hematologic panel, magnesium, phosphorus, ionized calcium, thyroid panel, lipid profile, A1c, C-peptide, CRP, sedimentation rate, respiratory infection profile, respiratory virus panel, urinalysis, coagulation panel, blood gas, lactic acid, serologies, etc. Precautions: Aspiration, fall, delirium protocol/surveillance initiated. Telemetry with continuous hemodynamic monitoring and pulse oximetry initiated. Empiric antibody coverage: Intravenous doxycycline pending culture data. Special studies: CT of the chest, chest x-ray, telemetry, EKG, echocardiogram. Pulmonary toilet: Incentive spirometry, aerosol bronchodilator, mucolytic, antitussive, supplemental oxygen. Corticosteroid therapy. CPAP/BiPAP supplemental oxygen delivery may be employed. Aerosol Mucomyst therapy may be employed. Fluid and electrolyte repletion efforts will proceed. Careful attention to fluid balance and renal recovery will be emphasized. Avoidance of nephrotoxic exposure and adverse drug drug interaction in the setting of impaired renal function will be monitored closely. Correction of metabolic and acid-base deficits. Acute coronary syndrome protocol/surveillance initiated. Aspirin, Plavix, beta tommy, JOSE ENRIQUE inhibitor, statin. As needed nitrates. As needed morphine. Supplemental oxygen. Intravenous heparin drip ACS protocol initiated. Intravenous diltiazem drip initiated following intravenous diltiazem loading dose as per atrial fibrillation protocols. DVT and PUD prophylaxis initiated: PPI therapy, intermittent pneumatic cuffs. Early ambulation will be encouraged. Immunization updates recommended. Influenza and pneumococcal vaccinations as part of ongoing preventative healthcare recommendations strongly recommended. Smoking cessation counseling briefly addressed. Patient accepts nicotine substitution with this admission.. Advanced care directive discussion briefly addressed. Patient does not declare any healthcare restrictions at this time. Cardiovascular risk appraisal and cardiovascular risk reduction efforts will be emphasized. Physical and occupational therapy may be consulted to assess patient's functional capacity and progress mobility if circumstances justify. Outpatient medication schedules will be reviewed confirmed and facilitated as appropriate. Reconciliation of home treatments including adjustments, substitutions and reintroduction into the treatment regimen address necessary maintenance therapies for chronic pre-existing medical conditions. Plan of care has been reviewed and discussed in detail with the patient. Questions addressed. Hospital course is dependent on presenting clinical findings, treatment response and potential consultative interventions. Patient is at risk for further acute clinical decline and morbidity due to age, presenting chief complaints and comorbid conditions. Condition is serious. Prognosis is cautiously optimistic. CODE STATUS is full. Hospital course: Mr. Farias is a 66 year old male admitted with a mass in the left lung, he underwent extensive evaluation which included a CT of the abdomen and pelvis with contrast for staging purposes. Evidence of possible involvement of the adrenal glans was noted in the CAT scan. Additionally, the patient underwent a brain MRI which did not show any evidence of metastatic disease. A bone scan was also performed, without conclusive evidence of metastasis. The patient developed atrial flutter with rapid ventricular response, he responded well to rate control medications. Currently rate is controlled with both Lopressor and Cardizem. Cardiology was on board while inpatient. For anticoagulation he would continue with xarelto, which was on hold due to lung mass biopsy. Patient will resume xarelto after biopsy and follow-up with cardiology as outpatient. Additionally patient will follow up as outpatient with oncology in regards to biopsy results. He was explained about the plan of care, he verbally expressed understanding. We will resume his inhalers and home medications. However in light of patient being on both aspirin and xarelto will not continue with Plavix due to increased risk of bleeding. - Time Spent with Patient Total time spent providing and/or coordinating discharge services: Greater than 30 minutes - Constitutional Vitals: Temp Pulse Resp BP Pulse Ox 97.2 F L 85 18 170/96 97 12/01/16 07:16 12/01/16 07:16 12/01/16 07:16 12/01/16 07:16 12/01/16 07:16 General appearance: Present: cooperative, mild distress, A&O X 3, obese, answers questions appropriately - Head Head exam: Present: atraumatic, normocephalic - Eye Eye exam: Present: PERRL, conjuntiva pink, sclera anicteric Pupils: Present: PERRL - Neck Neck exam general surgery: Present: supple, trachea midline. Absent: lymphadenopathy - Respiratory Respiratory exam: Absent: accessory muscle use, rales, rhonchi, wheezes Additional comments: expiratory wheezing in left upper lobe. - Cardiovascular Cardiovascular exam: Present: RRR, +S1, +S2. Absent: diastolic murmur, gallop, rubs, systolic murmur - GI/Abdominal GI/Abdominal exam: Present: normal bowel sounds, soft, no peritoneal signs. Absent: distended, tenderness - Extremities Exam Extremities exam: Present: warm, radial pulses palpable and symetrical. Absent : calf tenderness, cyanotic, pedal edema - Neurological Exam Neurological exam: Present: CN II-XII intact, oriented X3, no focal deficits. Absent: pronater drift, facial droop, speech deficit - Skin Skin exam: Present: dry, intact - VTE Documentation of Mechanical Device: Graduated compression elastic hosiery
[2016-12-01] MEDS: Aspirin 81 MG TAB.CHEW PO SCH (09:57)
[2016-12-01] MEDS: Lactobacillus 1 EACH CAP.SPRINK PO SCH (09:57)
[2016-12-01] MEDS: levoFLOXacin 500 MG TABLET PO SCH (09:58)
[2016-12-01] MEDS: Diltiazem CD (24hr) 180 MG CAPSULE PO SCH (10:02)
[2016-12-01] MEDS: Nicotine 21 MG PATCH.TD24 TD SCH (10:02)
[2016-12-01] MEDS ORDERED: *HR* Midazolam HCl 2 MG/2 ML VIAL IV PRN (13:36)
[2016-12-01] MEDS ORDERED: *HR* FentaNYL (PF) 100 MCG/2 ML VIAL IV PRN (13:36)
--- NOTE | 2016-12-01 14:22 | Pre-Sedation Evaluation ---
Pre-sedation evaluation - Pre-sedation checklist Date of procedure: 12/01/16 Procedure: lung bx Recent Vitals: Last Vital Signs Temp 97.2 F L 12/01/16 07:16 Pulse 85 12/01/16 07:16 Resp 18 12/01/16 10:54 BP 170/96 12/01/16 07:16 Pulse Ox 97 12/01/16 10:54 Dietary Status: NPO 6 hours prior to procedure Airway Assessment: Patient can open mouth completely, TMJ function normal, Micrognathia (under-bite, receding chin) absent, Neck with adequate range of motion ASA Classification *see protocol: CLASS II-Mild systemic disease Plan of Care: Pt appropriate candidate for procedure/moderate/conscious sedation , Risks/benefits of procedure/sedation discussed w/ patient/family, If not NPO; Risk of intake outweiged by necessity to perform procedure
[2016-12-01] MEDS ORDERED: 0.9 % Sodium Chloride 500 ML ONE (14:28)
[2016-12-01 14:56] VITALS: BP 131/85
--- NOTE | 2016-12-01 15:33 | IR Procedure Note ---
Date of procedure: 12/01/16 Consent Obtained: Verbal consent, Written consent Timeout: Correct patient and procedure verified, Correct site verified, Time out performed, Skin prep completed Local anesthetic: Lidocaine 1% Indications: lung mass Procedure Performed: bx Site/Technique: left Results/Findings: 6 cores Estimated blood loss (cc): 1 Complications: None; Tolerated procedure well Post Procedure Treatment Plan: bedrest x 1 hour, CXR pending
[2016-12-01] MEDS: *HR* Rivaroxaban 10 MG TABLET PO SCH (17:55)
== END 2016-12-01 20:15 | disposition home or self-care (01) | DRG 308 ==
LOC: 2ANU 21:49 → SUATTDRO 21:49 → 2ANU 11-30 00:41
PROVIDERS: ADMIT Internal Medicine; ATTEND Internal Medicine

== ENCOUNTER 2017-05-07 19:47 | Inpatient (IN) ==
--- NOTE | 2017-05-07 19:54 | Emergency Department Note ---
Disposition Clinical Impression: Acute hyponatremia, Pleural effusion, left, Hypoxia Disposition: Admitted As Inpatient Condition: Undetermined General Adult HPI - General Chief complaint: ED Shortness of Breath/Dyspnea Stated complaint: DEWEY Time Seen by Provider: 05/07/17 19:50 - Related Data Home Medications Medication Instructions Recorded Confirmed Metoprolol [Lopressor] 25 mg PO BID 11/24/16 04/29/17 Pravastatin Sodium [Pravachol] 40 mg PO HS 11/26/16 04/29/17 Albuterol Sulfate [Ventolin Hfa] 2 puff IH Q4H PRN 11/27/16 04/29/17 Aspirin [Lo-Dose Aspirin EC] 81 mg PO DAILY 03/04/17 04/29/17 Dexamethasone [Decadron] 4 mg PO AD 03/04/17 04/29/17 LORazepam [Ativan] 1 mg PO Q6H PRN 03/04/17 04/29/17 Lidocaine/Prilocaine CREAM [Emla] 1 gm TP AD 03/04/17 04/29/17 Loratadine [Allergy Relief] 10 mg PO AD 03/04/17 04/29/17 Magic Mouthwash [Magic Mouthwash 10 ml PO TID PRN 03/04/17 04/29/17 BLM] Morphine Sulfate SR (12 HR) [MS 15 mg PO Q12HR 03/04/17 04/29/17 Contin] Omeprazole 20 mg PO DAILY 03/04/17 04/29/17 Ondansetron HCl 8 mg PO Q8H PRN 03/04/17 04/29/17 Prochlorperazine Maleate 10 mg PO Q6HR PRN 03/04/17 04/29/17 [Compazine] traZODone [TraZODone] 50 mg PO HS 03/04/17 04/29/17 Previous Rx's Medication Instructions Recorded Albuterol Sulfate [Albuterol 2 puff IH Q6HR #1 hfa.aer.ad 03/11/17 Inhaler] Budesonide/Formoterol 160/4.5 1 puff IH BIDR #1 hfa.aer.ad 03/11/17 [Symbicort 160/4.5] Rivaroxaban [Xarelto] 20 mg PO DAILY #30 tablet 03/11/17 Oxycodone HCl/Acetaminophen 1 - 2 each PO Q4H PRN #120 tablet 04/06/17 [Percocet 5-325 mg Tablet] Oxycodone HCl 15 mg PO Q2H PRN #60 tablet 04/29/17 Oxycodone HCl [Oxycodone HCl ER] 15 mg PO Q12H #60 tab.er.12h 04/29/17 FentaNYL PATCH [Duragesic] 1 patch TD Q72H #10 patch.td72 05/04/17 Diltiazem CD (24hr) [Cardizem CD] 180 mg PO DAILY #30 cap.er.24h 05/07/17 Allergies Allergy/AdvReac Type Severity Reaction Status Date / Time No Known Allergies Allergy Verified 04/16/17 14:31 Past Medical History - Past Medical History Medical history: Reports: arthritis, asthma, cancer, COPD, coronary artery disease, hyperlipidemia, hypertension, osteoporosis, other Surgical history: Reports: angioplasty/stent, other Psychiatric history: Reports: no psych history - Social History Smoking Status: Current some day smoker Smokeless Tobacco Status: No Alcohol use: Reports: none Drug use: Reports: none Course Vital Signs Temperature 98.7 F 05/07/17 19:49 Pulse Rate 101 05/07/17 19:49 Respiratory Rate 18 05/07/17 19:49 Blood Pressure 85/64 05/07/17 19:49 O2 Sat by Pulse Oximetry 95 05/07/17 19:49 Temperature 97.5 F L 05/08/17 05:09 Pulse Rate 81 05/08/17 05:09 Respiratory Rate 17 05/08/17 05:09 Blood Pressure 119/80 05/08/17 05:09 O2 Sat by Pulse Oximetry 98 05/08/17 05:09 Oxygen Delivery Oxygen Delivery Nasal Cannula Medical Decision Making - Lab Data Result diagrams: 05/08/17 04:47 05/08/17 04:47 Lab Results 05/07/17 05/07/17 05/07/17 Range/Units 20:49 20:49 20:49 WBC 11.8 H (4.3-11.1) K/mcL RBC 3.25 L (4.19-5.50) M/mcL Hgb 10.2 L (12.9-16.9) g/dL Hct 30.8 L (37.5-50.1) % MCV 94.8 (83.0-100.0) fL MCH 31.4 (28.0-33.3) pg MCHC 33.1 (31.6-35.5) g/dL RDW 17.6 H (11.5-14.5) % Plt Count 400 (140-400) K/mcL MPV 9.2 L (9.4-12.4) fL Immature Gran % 0.7 (0-4) % Seg Neutrophils % 70.8 % Lymphocytes % 17.5 % Monocytes % 10.7 % Eosinophils % 0.0 % Basophils % 0.3 % Neutrophils # 8.4 (1.6-8.9) K/mcL Lymphocytes # 2.1 (0.6-4.6) K/mcL Monocytes # 1.3 (0.0-1.3) K/mcL Eosinophils # 0.0 (0.0-0.6) K/mcL Basophils # 0.0 (0.0-0.2) K/mcL Immature Plt Fraction 3.3 (1.1-6.1) % Sodium 126 L (136-145) mEq/L Potassium 4.2 (3.5-4.5) mEq/L Chloride 90 L (98-109) mEq/L Carbon Dioxide 29 (19-29) mEq/L BUN 11 (8-26) mg/dL Creatinine 0.95 (0.72-1.25) mg/dL Est GFR ( Amer) > 60 (> 60) Est GFR (Non-Af Amer) > 60 (> 60) BUN/Creatinine Ratio 12 (6-26) Glucose 132 H (70-99) mg/dL Calculated Osmolality 263 L (280-300) Calcium 9.2 (8.6-10.8) mg/dL Total Bilirubin 0.3 (0.2-1.2) mg/dL AST 13 (5-34) Units/L ALT 6 (0-55) Units/L Alkaline Phosphatase 67 (38-126) Units/L Troponin I 0.01 (0-0.03) ng/mL B-Natriuretic Peptide (0-100) pg/mL Serum Total Protein 6.9 (6.0-8.3) g/dL Albumin 2.5 L (3.5-5.0) g/dL Globulin 4.4 H (2.4-3.5) g/dL Albumin/Globulin Ratio 0.6 L (1.1-2.2) 05/07/17 Range/Units 20:49 WBC (4.3-11.1) K/mcL RBC (4.19-5.50) M/mcL Hgb (12.9-16.9) g/dL Hct (37.5-50.1) % MCV (83.0-100.0) fL MCH (28.0-33.3) pg MCHC (31.6-35.5) g/dL RDW (11.5-14.5) % Plt Count (140-400) K/mcL MPV (9.4-12.4) fL Immature Gran % (0-4) % Seg Neutrophils % % Lymphocytes % % Monocytes % % Eosinophils % % Basophils % % Neutrophils # (1.6-8.9) K/mcL Lymphocytes # (0.6-4.6) K/mcL Monocytes # (0.0-1.3) K/mcL Eosinophils # (0.0-0.6) K/mcL Basophils # (0.0-0.2) K/mcL Immature Plt Fraction (1.1-6.1) % Sodium (136-145) mEq/L Potassium (3.5-4.5) mEq/L Chloride (98-109) mEq/L Carbon Dioxide (19-29) mEq/L BUN (8-26) mg/dL Creatinine (0.72-1.25) mg/dL Est GFR ( Amer) (> 60) Est GFR (Non-Af Amer) (> 60) BUN/Creatinine Ratio (6-26) Glucose (70-99) mg/dL Calculated Osmolality (280-300) Calcium (8.6-10.8) mg/dL Total Bilirubin (0.2-1.2) mg/dL AST (5-34) Units/L ALT (0-55) Units/L Alkaline Phosphatase (38-126) Units/L Troponin I (0-0.03) ng/mL B-Natriuretic Peptide 61 (0-100) pg/mL Serum Total Protein (6.0-8.3) g/dL Albumin (3.5-5.0) g/dL Globulin (2.4-3.5) g/dL Albumin/Globulin Ratio (1.1-2.2) Attestation Statement - Attestation Attestation: I examined this patient and my medical decision-making was reviewed with the CRITICAL CARE RN/PA/Advanced Practice Nurse/Resident Physician. I agree with the documented findings, disposition and treatment plan as described except to the extent set forth below. face to face time provided Patient arrives by EMS complaining of dyspnea. He has a history of lung cancer and previous pneumonectomy. He is not oxygen dependent. He also notes peripheral edema
--- NOTE | 2017-05-07 19:55 | Emergency Department Note ---
Disposition Clinical Impression: Acute hyponatremia, Pleural effusion, left, Hypoxia Disposition: Admitted As Inpatient Condition: Undetermined Time of Disposition: 21:50 SOB HPI - General Chief Complaint: ED Shortness of Breath/Dyspnea Stated Complaint: DEWEY Time Seen by Provider: 05/07/17 19:50 Source: patient Mode of arrival: EMS Limitations: no limitations Nursing Notes Reviewed: Yes Vital Signs Reviewed: Yes - History of Present Illness 66-year-old male with history of lung cancer, history of pneumonectomy, arrives [facility] emergency department complaining of shortness of breath that started earlier today. The patient is having associated bilateral lower extremity swelling and dyspnea. He was hypoxic upon arrival via EMS. On 3 L nasal cannula was 98%. The patient states he had associated left-sided chest pain but states it felt more in his lung that it is hard. The patient did have a cardiac workup "not too long ago". The patient was recently started on immunotherapy for his lung cancer. The patient states he is unsure when his last biopsy was but was not within the past 3 months. Patient denies any other complaints at this time including abdominal pain. 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 Severity: none Consistency/Duration: constant Improves with: nothing Worsens with: nothing Known history of: other (Lung Cancer) Associated symptoms: Reports: chest pain Treatment prior to arrival: oxygen Cough present: No Sputum production: No - Related Data Home oxygen amount: none Home Medications Medication Instructions Recorded Confirmed Metoprolol [Lopressor] 25 mg PO BID 11/24/16 04/29/17 Pravastatin Sodium [Pravachol] 40 mg PO HS 11/26/16 04/29/17 Albuterol Sulfate [Ventolin Hfa] 2 puff IH Q4H PRN 11/27/16 04/29/17 Aspirin [Lo-Dose Aspirin EC] 81 mg PO DAILY 03/04/17 04/29/17 Dexamethasone [Decadron] 4 mg PO AD 03/04/17 04/29/17 LORazepam [Ativan] 1 mg PO Q6H PRN 03/04/17 04/29/17 Lidocaine/Prilocaine CREAM [Emla] 1 gm TP AD 03/04/17 04/29/17 Loratadine [Allergy Relief] 10 mg PO AD 03/04/17 04/29/17 Magic Mouthwash [Magic Mouthwash 10 ml PO TID PRN 03/04/17 04/29/17 BLM] Morphine Sulfate SR (12 HR) [MS 15 mg PO Q12HR 03/04/17 04/29/17 Contin] Omeprazole 20 mg PO DAILY 03/04/17 04/29/17 Ondansetron HCl 8 mg PO Q8H PRN 03/04/17 04/29/17 Prochlorperazine Maleate 10 mg PO Q6HR PRN 03/04/17 04/29/17 [Compazine] traZODone [TraZODone] 50 mg PO HS 03/04/17 04/29/17 Previous Rx's Medication Instructions Recorded Albuterol Sulfate [Albuterol 2 puff IH Q6HR #1 hfa.aer.ad 03/11/17 Inhaler] Budesonide/Formoterol 160/4.5 1 puff IH BIDR #1 hfa.aer.ad 03/11/17 [Symbicort 160/4.5] Rivaroxaban [Xarelto] 20 mg PO DAILY #30 tablet 03/11/17 Oxycodone HCl/Acetaminophen 1 - 2 each PO Q4H PRN #120 tablet 04/06/17 [Percocet 5-325 mg Tablet] Oxycodone HCl 15 mg PO Q2H PRN #60 tablet 04/29/17 Oxycodone HCl [Oxycodone HCl ER] 15 mg PO Q12H #60 tab.er.12h 04/29/17 FentaNYL PATCH [Duragesic] 1 patch TD Q72H #10 patch.td72 05/04/17 Diltiazem CD (24hr) [Cardizem CD] 180 mg PO DAILY #30 cap.er.24h 05/07/17 Allergies Allergy/AdvReac Type Severity Reaction Status Date / Time No Known Allergies Allergy Verified 04/16/17 14:31 All systems ED: reviewed and negative except as stated. Constitutional: Denies: fever, chills, weakness, weight change Eyes: Denies: eye pain, eye discharge, vision change ENT ED: Reports: as per HPI Cardiovascular: Reports: chest pain, edema. Denies: palpitations, dyspnea on exertion, syncope Respiratory: Reports: dyspnea. Denies: cough, wheezes, hemoptysis, stridor Gastrointestinal: Denies: abdominal pain, nausea, vomiting, diarrhea, constipation, hematemesis, melena, hematochezia Musculoskeletal: Denies: back pain, neck pain, arthralgia, myalgia Integumentary: Denies: rash, abrasion, lesions Neurological: Reports: as per HPI Past Medical History - Past Medical History Attestation: Yes The following information was validated with the patient. Source: patient Medical history: Reports: arthritis, asthma, cancer (Lung), COPD, coronary artery disease, hyperlipidemia, hypertension, osteoporosis, other Surgical history: Reports: angioplasty/stent, other (Partial pneumonetomy) Psychiatric history: Reports: no psych history - Social History Smoking Status: Current some day smoker Smokeless Tobacco Status: No Alcohol use: Reports: none Drug use: Reports: none Physical Exam - General Limitations: no limitations General appearance: alert, in no apparent distress - Head Head exam: atraumatic, normocephalic, normal inspection - Eye Eye exam: Present: normal appearance, PERRL, EOMI - Chest Chest inspection: Present: normal inspection, symmetric chest wall rise - Respiratory Respiratory exam: Present: prolonged expiratory phase - Expanded Respiratory Exam Location: decreased breath sounds: Left, Upper - Cardiovascular Cardiovascular exam: Present: regular rate, normal rhythm, normal heart sounds - Abdominal Exam Abdominal exam: Present: soft, Non-Tender. Absent: tenderness, distention, guarding, rebound, rigidity - Extremities Exam Extremities exam: Present: normal inspection, full ROM, pedal edema (1+ pitting bilaterally). Absent: tenderness - Back Exam Back exam: Present: normal inspection, full ROM. Absent: tenderness - Neurological Exam Neurological exam: Present: alert, oriented X3 Course - Reevaluation(s) Reevaluation #1: Patient's BP is 90's systolic which is normal for the patient. He is mentating appropriately. Vital Signs Temperature 98.7 F 05/07/17 19:49 Pulse Rate 101 05/07/17 19:49 Respiratory Rate 18 05/07/17 19:49 Blood Pressure 85/64 05/07/17 19:49 O2 Sat by Pulse Oximetry 95 05/07/17 19:49 Temperature 98.7 F 05/07/17 19:49 Pulse Rate 101 05/07/17 21:56 Respiratory Rate 18 05/07/17 21:56 Blood Pressure 88/62 05/07/17 21:56 O2 Sat by Pulse Oximetry 96 05/07/17 21:56 Oxygen Delivery Oxygen Delivery Nasal Cannula Shortness of Breath/Dyspnea - MDM Narrative Medical decision making narrative: Patient found to have a left pleural effusion that is new. The patient was hypoxic on evaluation prior to arrival by EMS. The patient is requiring 3 L nasal cannula at this time to maintain O2 saturations above 95-96%. The patient was also found to be hyponatremic. He has been retaining fluid as well with bilateral lower extremity pitting edema 1+. We will admit the patient to the hospital for further evaluation and workup. Patient accepted by Dr. Lee. - Medical Records Medical records reviewed: Yes I reviewed the patient's medical records. - Lab Data Lab results reviewed: Yes I reviewed the patient's lab results. Result diagrams: 05/07/17 20:49 05/07/17 20:49 Lab Results 05/07/17 05/07/17 05/07/17 Range/Units 20:49 20:49 20:49 WBC 11.8 H (4.3-11.1) K/mcL RBC 3.25 L (4.19-5.50) M/mcL Hgb 10.2 L (12.9-16.9) g/dL Hct 30.8 L (37.5-50.1) % MCV 94.8 (83.0-100.0) fL MCH 31.4 (28.0-33.3) pg MCHC 33.1 (31.6-35.5) g/dL RDW 17.6 H (11.5-14.5) % Plt Count 400 (140-400) K/mcL MPV 9.2 L (9.4-12.4) fL Immature Gran % 0.7 (0-4) % Seg Neutrophils % 70.8 % Lymphocytes % 17.5 % Monocytes % 10.7 % Eosinophils % 0.0 % Basophils % 0.3 % Neutrophils # 8.4 (1.6-8.9) K/mcL Lymphocytes # 2.1 (0.6-4.6) K/mcL Monocytes # 1.3 (0.0-1.3) K/mcL Eosinophils # 0.0 (0.0-0.6) K/mcL Basophils # 0.0 (0.0-0.2) K/mcL Immature Plt Fraction 3.3 (1.1-6.1) % Sodium 126 L (136-145) mEq/L Potassium 4.2 (3.5-4.5) mEq/L Chloride 90 L (98-109) mEq/L Carbon Dioxide 29 (19-29) mEq/L BUN 11 (8-26) mg/dL Creatinine 0.95 (0.72-1.25) mg/dL Est GFR ( Amer) > 60 (> 60) Est GFR (Non-Af Amer) > 60 (> 60) BUN/Creatinine Ratio 12 (6-26) Glucose 132 H (70-99) mg/dL Calculated Osmolality 263 L (280-300) Calcium 9.2 (8.6-10.8) mg/dL Total Bilirubin 0.3 (0.2-1.2) mg/dL AST 13 (5-34) Units/L ALT 6 (0-55) Units/L Alkaline Phosphatase 67 (38-126) Units/L Troponin I 0.01 (0-0.03) ng/mL B-Natriuretic Peptide (0-100) pg/mL Serum Total Protein 6.9 (6.0-8.3) g/dL Albumin 2.5 L (3.5-5.0) g/dL Globulin 4.4 H (2.4-3.5) g/dL Albumin/Globulin Ratio 0.6 L (1.1-2.2) // Range/Units 20:49 WBC (4.3-11.1) K/mcL RBC (4.19-5.50) M/mcL Hgb (12.9-16.9) g/dL Hct (37.5-50.1) % MCV (83.0-100.0) fL MCH (28.0-33.3) pg MCHC (31.6-35.5) g/dL RDW (11.5-14.5) % Plt Count (140-400) K/mcL MPV (9.4-12.4) fL Immature Gran % (0-4) % Seg Neutrophils % % Lymphocytes % % Monocytes % % Eosinophils % % Basophils % % Neutrophils # (1.6-8.9) K/mcL Lymphocytes # (0.6-4.6) K/mcL Monocytes # (0.0-1.3) K/mcL Eosinophils # (0.0-0.6) K/mcL Basophils # (0.0-0.2) K/mcL Immature Plt Fraction (1.1-6.1) % Sodium (136-145) mEq/L Potassium (3.5-4.5) mEq/L Chloride (98-109) mEq/L Carbon Dioxide (19-29) mEq/L BUN (8-26) mg/dL Creatinine (0.72-1.25) mg/dL Est GFR ( Amer) (> 60) Est GFR (Non-Af Amer) (> 60) BUN/Creatinine Ratio (6-26) Glucose (70-99) mg/dL Calculated Osmolality (280-300) Calcium (8.6-10.8) mg/dL Total Bilirubin (0.2-1.2) mg/dL AST (5-34) Units/L ALT (0-55) Units/L Alkaline Phosphatase (38-126) Units/L Troponin I (0-0.03) ng/mL B-Natriuretic Peptide 61 (0-100) pg/mL Serum Total Protein (6.0-8.3) g/dL Albumin (3.5-5.0) g/dL Globulin (2.4-3.5) g/dL Albumin/Globulin Ratio (1.1-2.2) - Radiology Data Radiology results reviewed: Yes I reviewed the patient's radiology results. - EKG Data EKG attestation: Yes I reviewed and interpreted this EKG. EKG results narrative: Heart rate [address] interval 168 ms. QTC 69 ms. Normal axis. Normal sinus rhythm. No ST elevation or ST depression noted. EKG from 11/27/2016 demonstrates a flutter. New EKG normal sinus rhythm.
[2017-05-07 20:58] LABS: Basophils % 0.3 %; Hematocrit 30.8 % (37.5-50.1); Hemoglobin 10.2 g/dL (12.9-16.9); Immature Granulocytes % 0.7 % (0-4); Immature Platelets 3.3 % (1.1-6.1); Lymphocytes # 2.1 K/mcL (0.6-4.6); Lymphocytes % 17.5 %; Mean Corpuscular HGB Conc 33.1 g/dL (31.6-35.5); Mean Corpuscular Hemoglobin 31.4 pg (28.0-33.3); Mean Corpuscular Volume 94.8 fL (83.0-100.0); Mean Platelet Volume 9.2 fL (9.4-12.4); Monocytes # 1.3 K/mcL (0.0-1.3); Monocytes % 10.7 %; Neutrophils # 8.4 K/mcL (1.6-8.9); Platelet Count 400 K/mcL (140-400); Red Blood Count 3.25 M/mcL (4.19-5.50); Red Cell Distribution Width 17.6 % (11.5-14.5); Segmented Neutrophils % 70.8 %
[2017-05-07 21:13] LABS: Alanine Aminotransferase 6 Units/L (0-55); Albumin 2.5 g/dL (3.5-5.0); Albumin/Globulin Ratio 0.6 (1.1-2.2); Alkaline Phosphatase 67 Units/L (38-126); Aspartate Amino Transferase 13 Units/L (5-34); BUN/Creatinine Ratio 12 (6-26); Bilirubin,Total 0.3 mg/dL (0.2-1.2); Blood Urea Nitrogen 11 mg/dL (8-26); Calcium 9.2 mg/dL (8.6-10.8); Carbon Dioxide 29 mEq/L (19-29); Chloride 90 mEq/L (98-109); Globulin 4.4 g/dL (2.4-3.5); Glucose 132 mg/dL (70-99); Osmolality,Calculated 263 (280-300); Potassium 4.2 mEq/L (3.5-4.5); Sodium 126 mEq/L (136-145); Total Protein 6.9 g/dL (6.0-8.3); eGFR For African Americans > 60 (> 60); eGFR For Non-African Americans > 60 (> 60)
--- NOTE | 2017-05-08 01:11 | Internal Med History&Physical ---
Date of Encounter: 05/08/17 Time of Encounter: 01:07 Assessment and Plan (1) Diastolic CHF Current visit: Yes Status: Acute I will start on Lasix 40 mg IV daily. Follow Intake and output. Qualifiers: Qualified Code(s): I50.30 - Unspecified diastolic (congestive) heart failure (2) Acute bronchitis Current visit: Yes Status: Acute Patient is a COPD or has increased sputum production. Keep Patient on Levaquin. No evidence of pneumonia on chest x-ray Qualifiers: Qualified Code(s): J20.9 - Acute bronchitis, unspecified (3) Acute hyponatremia Current visit: Yes Status: Acute Rule out SIADH. check urine sodium in osmolarity. (4) Pleural effusion, left Current visit: Yes Status: Acute Likely malignant effusion. At least moderate size. Pulmonology consultation. (5) Small cell lung cancer Current visit: No Status: Acute Received chemotherapy Qualifiers: Laterality: left Qualified Code(s): C34.92 - Malignant neoplasm of unspecified part of left bronchus or lung Internal Medicine - H&P: HPI Chief complaint: sob History of present illness: Mr. Farias is a 66 year old male with multiple medical problems including metastatic lung cancer status post chemotherapy, COPD not on home oxygen, presents to the emergency room today with the main complaint of shortness of breath. For the past month or so patient has been noticing gradual progressive shortness of breath to the point where a short of breath with any minimal exertion. He notes that he is having increased amount of cough and sputum production which is blood tinged. He has also noticed swelling to both lower extremity. He has problems laying on his back because of shortness of breath and prefers sitting upright position. Imaging in the emergency room showed evidence of a at least moderate left side pleural effusion. Patient has not had any thoracentesis for this pleural effusion before. He has some chest discomfort on the left side of the chest especially with inspiration. Past Med Surg Social Fam HX - Past Medical History Medical history: arthritis, asthma, cancer, COPD, coronary artery disease, hyperlipidemia, hypertension, osteoporosis, other Psychiatric history: no psych history - Past Surgical History Surgical History: angioplasty/stent, other - Social History Smoking Status: Current some day smoker Smokeless Tobacco Status: No Alcohol use: none Drug use: none - Family History Father Living Status: Hx Family Cardiac Disorders: Yes Internal Medicine - H&P: Meds Metoprolol [Lopressor] 25 mg PO BID 11/24/16 [History] Pravastatin Sodium [Pravachol] 40 mg PO HS 11/26/16 [History] Albuterol Sulfate [Ventolin Hfa] 2 puff IH Q4H PRN 11/27/16 [History] Aspirin [Lo-Dose Aspirin EC] 81 mg PO DAILY 03/04/17 [History] Dexamethasone [Decadron] 4 mg PO AD 03/04/17 [History] LORazepam [Ativan] 1 mg PO Q6H PRN 03/04/17 [History] Lidocaine/Prilocaine CREAM [Emla] 1 gm TP AD 03/04/17 [History] Loratadine [Allergy Relief] 10 mg PO AD 03/04/17 [History] Magic Mouthwash [Magic Mouthwash BLM] 10 ml PO TID PRN 03/04/17 [History] Morphine Sulfate SR (12 HR) [MS Contin] 15 mg PO Q12HR 03/04/17 [History] Omeprazole 20 mg PO DAILY 03/04/17 [History] Ondansetron HCl 8 mg PO Q8H PRN 03/04/17 [History] Prochlorperazine Maleate [Compazine] 10 mg PO Q6HR PRN 03/04/17 [History] traZODone [TraZODone] 50 mg PO HS 03/04/17 [History] Albuterol Sulfate [Albuterol Inhaler] 2 puff IH Q6HR #1 hfa.aer.ad 03/11/17 [Rx] Budesonide/Formoterol 160/4.5 [Symbicort 160/4.5] 1 puff IH BIDR #1 hfa.aer.ad 03/11/17 [Rx] Rivaroxaban [Xarelto] 20 mg PO DAILY #30 tablet 03/11/17 [Rx] Oxycodone HCl/Acetaminophen [Percocet 5-325 mg Tablet] 1 - 2 each PO Q4H PRN # 120 tablet 04/06/17 [Rx] Oxycodone HCl 15 mg PO Q2H PRN #60 tablet 04/29/17 [Rx] Oxycodone HCl [Oxycodone HCl ER] 15 mg PO Q12H #60 tab.er.12h 04/29/17 [Rx] FentaNYL PATCH [Duragesic] 1 patch TD Q72H #10 patch.td72 05/04/17 [Rx] Diltiazem CD (24hr) [Cardizem CD] 180 mg PO DAILY #30 cap.er.24h 05/07/17 [Rx] Allergies No Known Allergies Allergy (Verified 04/16/17 14:31) All Systems PM: A 10-system review of systems was performed and is negative for pertinent findings except as documented above in the HPI. Review of systems: 10 point review of systems is negative except for HPI - Constitutional Vitals: Temp Pulse Resp BP Pulse Ox 98.1 F 82 21 104/67 99 05/07/17 22:54 05/07/17 22:54 05/07/17 22:54 05/07/17 22:54 05/07/17 22:54 Exam: Gen.: patient is alert oriented times 3 not in distress cardiac: Normal S1, S2, no additional sounds or murmurs chest: diminished air entry in left base Abdomen: Soft, nontender, non-distended. No rebound lower extremity Lax calf muscles no swelling Neuro: no focal deficits Internal Med - H&P Results - Labs CBC & Chem 7: 05/07/17 20:49 05/07/17 20:49
[2017-05-08] MEDS: Furosemide 40 MG/4 ML VIAL IVP SCH ×2 (01:45→08:24)
[2017-05-08] MEDS ORDERED: Ipratropium/Albuterol Neb 3 ML IH PRN (04:55)
[2017-05-08] MEDS: Ipratropium/Albuterol Neb 3 ML IH SCH ×3 (05:08→15:52)
[2017-05-08 05:10] LABS: Basophils # 0.1 K/mcL (0.0-0.2); Basophils % 0.5 %; Hemoglobin 10.2 g/dL (12.9-16.9); Immature Granulocytes % 0.7 % (0-4); Immature Platelets 2.9 % (1.1-6.1); Lymphocytes # 2.5 K/mcL (0.6-4.6); Lymphocytes % 22.2 %; Mean Corpuscular HGB Conc 32.9 g/dL (31.6-35.5); Mean Corpuscular Hemoglobin 31.4 pg (28.0-33.3); Mean Corpuscular Volume 95.4 fL (83.0-100.0); Mean Platelet Volume 9.5 fL (9.4-12.4); Monocytes # 1.5 K/mcL (0.0-1.3); Monocytes % 13.2 %; Platelet Count 367 K/mcL (140-400); Red Blood Count 3.25 M/mcL (4.19-5.50); Red Cell Distribution Width 17.7 % (11.5-14.5); Segmented Neutrophils % 63.4 %
[2017-05-08 05:27] LABS: BUN/Creatinine Ratio 12 (6-26); Blood Urea Nitrogen 11 mg/dL (8-26); Calcium 9.1 mg/dL (8.6-10.8); Carbon Dioxide 26 mEq/L (19-29); Chloride 91 mEq/L (98-109); Glucose 108 mg/dL (70-99); Magnesium 1.3 mg/dL (1.6-2.6); Osmolality,Calculated 264 (280-300); Potassium 3.8 mEq/L (3.5-4.5); Sodium 127 mEq/L (136-145); eGFR For African Americans > 60 (> 60); eGFR For Non-African Americans > 60 (> 60)
[2017-05-08] MEDS ORDERED: Magnesium Sulfate 2 GM in D5% in Water 100 ML IVPB ONE (08:07)
[2017-05-08] MEDS ORDERED: Levofloxacin 750 MG/150 ML 750 MG/150 ML BAG IVPB SCH (09:00)
--- NOTE | 2017-05-08 09:02 | Pulmonology Consult Note ---
<Polo Ferguson - Last Filed: 05/08/17 10:07> Date of Encounter: 05/08/17 Time of Encounter: 09:01 Assessment and Plan (1) Pleural effusion, left Current Visit: Yes Status: Acute 66 y/o M hx of afib, COPD, current smoker, stage IV small cell lung cancer presented with cc of sob, left pleuritic chest pain which has now resolved. Also states he has had hemoptysis for last 3 weeks and coughing up "gobs" of blood from time to time. He was hypoxemic and started on 3LO2. CXR showed moderate size left pleural effusion. CT scan from 03/31/17 showed left perihilar mass and post obstructive consolidation of left upper lobe. Ultrasound of left thoracic cavity shows significant pleural fluid Plan to undergo thoracentesis -on xarelto for afib, last dose was yesterday morning. -ana 2nd to malignancy as unilateral and complicated by hx of diastolic CHF -increased possibility will recur and patient may need pelurex catheter -continue symbicort and nebulizer treatment -6m O2 test -continue O2 -continue lasix (2) Hemoptysis Current Visit: Yes Status: Acute 2nd to small cell lung cancer complicated by anticoaguation for afib -will undergo bronchoscopy today for surveillance of bleeding endobronchial lesion. -NPO -hgb stable at 10.2 (3) Tobacco abuse Current Visit: Yes Status: Acute 50 pack year hx continues to smoke one cigarette "from time to time" he is trying to quit on chantix (4) Small cell lung cancer Current Visit: Yes Status: Acute Qualifiers: Laterality: left Qualified Code(s): C34.92 - Malignant neoplasm of unspecified part of left bronchus or lung (5) Afib Current Visit: Yes Status: Chronic currently rate controlled, and sinus rhythm xarelto d/c due to hemoptysis patient understands the risks of d/c anticoagulation Qualifiers: Atrial fibrillation type: chronic Qualified Code(s): I48.2 - Chronic atrial fibrillation (6) COPD (chronic obstructive pulmonary disease) Current Visit: Yes Status: Chronic reports increasing dyspnea and productive cough which is more likely 2nd to left pleural effusion and left upper lobe atelectasis, and likely COPD exacerbation continue antibiotics and recommend starting steroids. continue home bronchodialators, symbicort continue O2 6m walk test. Qualifiers: COPD type: chronic bronchitis Chronic bronchitis type: mixed simple and mucopurulent Qualified Code(s): J41.8 - Mixed simple and mucopurulent chronic bronchitis History of Present Illness Consult date: 05/08/17 Requesting physician: Bogdan Hodge Reason for consult: pleural effusion Chief complaint: sob History of present illness: 66 y/o M w/ hx of stage IV small cell lung cancer on chemotherapy presents with cc of sob and pleauritic chest pain starting yesterday afternoon. He states he has become dyspenic and has increased productive sputum with hemoptysis. Left sided pleuritic chest pain has resolved during my encounter. He was found to be hypoxemic on presentation and started on 3L O2. Patient has lost 40 pounds in the last 6 months. Patient denies nasuea, vomiting, diaphoresis. He has a 50 pack year history and continues to smoke. He has albuterol inhaler and nebulizer he uses 3x/week and symbicort inhaler. He does not have oxygen at home. Patient Last CT scan showed interval increase in left perihilar/ paramediastinal mass w/ postobstructive consolidation within the left upper lobe. CXR on admission showed a moderate size left pelural effusion. Past Med Surg Social Fam HX - Past Medical History Medical history: arthritis, asthma, cancer, COPD, coronary artery disease, hyperlipidemia, hypertension, osteoporosis, other Psychiatric history: no psych history - Past Surgical History Surgical History: angioplasty/stent, other - Social History Smoking Status: Current some day smoker Smokeless Tobacco Status: No Alcohol use: none Drug use: none - Family History Father Living Status: Hx Family Cardiac Disorders: Yes Medications and Allergies Metoprolol [Lopressor] 25 mg PO BID 11/24/16 [History] Pravastatin Sodium [Pravachol] 40 mg PO HS 11/26/16 [History] Aspirin [Lo-Dose Aspirin EC] 81 mg PO DAILY 03/04/17 [History] Dexamethasone [Decadron] 4 mg PO AD 03/04/17 [History] Lidocaine/Prilocaine CREAM [Emla] 1 gm TP AD 03/04/17 [History] Loratadine [Allergy Relief] 10 mg PO AD 03/04/17 [History] Magic Mouthwash [Magic Mouthwash BLM] 10 ml PO TID PRN 03/04/17 [History] Ondansetron HCl 8 mg PO Q8H PRN 03/04/17 [History] Prochlorperazine Maleate [Compazine] 10 mg PO Q6HR PRN 03/04/17 [History] Albuterol Sulfate [Albuterol Inhaler] 2 puff IH Q6HR #1 hfa.aer.ad 03/11/17 [Rx] Budesonide/Formoterol 160/4.5 [Symbicort 160/4.5] 1 puff IH BIDR #1 hfa.aer.ad 03/11/17 [Rx] Rivaroxaban [Xarelto] 20 mg PO DAILY #30 tablet 03/11/17 [Rx] Oxycodone HCl 15 mg PO Q2H PRN #60 tablet 04/29/17 [Rx] Oxycodone HCl [Oxycodone HCl ER] 15 mg PO Q12H #60 tab.er.12h 04/29/17 [Rx] Diltiazem CD (24hr) [Cardizem CD] 180 mg PO DAILY #30 cap.er.24h 05/07/17 [Rx] Furosemide [Lasix] 20 mg PO DAILY #20 tablet 05/08/17 [Rx] levoFLOXacin [Levaquin] 500 mg PO DAILY #7 tablet 05/08/17 [Rx] Allergies No Known Allergies Allergy (Verified 04/16/17 14:31) All Systems: A 10-system review of systems was performed and is negative for pertinent findings except as documented above in the HPI. - Constitutional Constitutional: anorexia, fatigue, weight loss - Cardiovascular Cardiovascular: chest pain (left), dyspnea on exertion, no diaphoresis, no radiating pain - Respiratory Respiratory: cough, dyspnea, hemoptysis, dyspnea on exertion, wheezing, excessive phlegm production - Gastrointestinal Gastrointestinal: no abdominal pain, no diarrhea, no hematemesis, no nausea, no vomiting - Musculoskeletal Musculoskeletal: weakness, no joint pain - Psychiatric Psychiatric: anxiety - Hematologic/Lymphatic Hematologic/Lymphatic: easy bleeding (on xeralto) Physical Examination Vital Signs: Vital Signs, Last 4 Hours Temp Pulse Resp BP Pulse Ox 05/08/17 07:13 98.1 F 88 19 126/79 100 05/08/17 05:09 97.5 F L 81 17 119/80 98 05/08/17 05:08 16 98 General appearance: appears uncomfortable Eyes: nonicteric ENT: oropharynx moist Mallampati (class): 4 Neck: supple, no lymphadenopathy, no JVD Effort: mildly labored Auscultation: left: diminished breath sounds (upper lobe), rales (lower lobe), right: rhonchi (diffuse) Cardiovascular: regular rate and rhythm Gastrointestinal: normoactive bowel sounds, non-distended Extremities: no cyanosis, no clubbing, edema (2+) Musculoskeletal: no deformities Gait: normal gait normal mental status, non-focal exam anxious Results - Laboratory Findings CBC and BMP: 05/08/17 04:47 05/08/17 04:47 Abnormal lab findings: Abnormal lab results RBC 3.25 M/mcL (4.19-5.50) L 05/08/17 04:47 Hgb 10.2 g/dL (12.9-16.9) L 05/08/17 04:47 Hct 31.0 % (37.5-50.1) L 05/08/17 04:47 RDW 17.7 % (11.5-14.5) H 05/08/17 04:47 Monocytes # 1.5 K/mcL (0.0-1.3) H 05/08/17 04:47 Sodium 127 mEq/L (136-145) L 05/08/17 04:47 Chloride 91 mEq/L (98-109) L 05/08/17 04:47 Glucose 108 mg/dL (70-99) H 05/08/17 04:47 Calculated Osmolality 264 (280-300) L 05/08/17 04:47 Magnesium 1.3 mg/dL (1.6-2.6) L 05/08/17 04:47 Albumin 2.5 g/dL (3.5-5.0) L 05/07/17 20:49 Globulin 4.4 g/dL (2.4-3.5) H 05/07/17 20:49 Albumin/Globulin Ratio 0.6 (1.1-2.2) L 05/07/17 20:49 Urine Osmolality 281 mOsm/kg (300-1090) L 05/08/17 05:39 - Clinical Findings Intake & Output: Intake & Output 05/07/17 05/08/17 05/08/17 23:59 07:59 15:59 Output Total 425 / 425 Balance -425 / -425 Consult Discharge Plan - Plan Additional Instructions: F/up with with [facility] in 3-5 days F/up with PCP in 1-2 weeks Referrals: NO,PCP [Primary Care Provider] - Prescriptions: Furosemide [Lasix] 20 mg PO DAILY #20 tablet levoFLOXacin [Levaquin] 500 mg PO DAILY #7 tablet <Bonita Luis - Last Filed: 05/08/17 15:59> Date of Encounter: 05/08/17 All Systems: A 10-system review of systems was performed and is negative for pertinent findings except as documented above in the HPI. Physical Examination Vital Signs: Vital Signs, Last 4 Hours Temp Pulse Resp BP Pulse Ox 05/08/17 13:57 95 16 109/67 100 05/08/17 12:50 98.2 F 98 16 106/98 96 05/08/17 12:00 98.0 F 97 16 96/63 97 Results - Laboratory Findings CBC and BMP: 05/08/17 04:47 05/08/17 04:47 Abnormal lab findings: Abnormal lab results RBC 3.25 M/mcL (4.19-5.50) L 05/08/17 04:47 Hgb 10.2 g/dL (12.9-16.9) L 05/08/17 04:47 Hct 31.0 % (37.5-50.1) L 05/08/17 04:47 RDW 17.7 % (11.5-14.5) H 05/08/17 04:47 Monocytes # 1.5 K/mcL (0.0-1.3) H 05/08/17 04:47 Sodium 127 mEq/L (136-145) L 05/08/17 04:47 Chloride 91 mEq/L (98-109) L 05/08/17 04:47 Glucose 108 mg/dL (70-99) H 05/08/17 04:47 Calculated Osmolality 264 (280-300) L 05/08/17 04:47 Magnesium 1.3 mg/dL (1.6-2.6) L 05/08/17 04:47 Albumin 2.5 g/dL (3.5-5.0) L 05/07/17 20:49 Globulin 4.4 g/dL (2.4-3.5) H 05/07/17 20:49 Albumin/Globulin Ratio 0.6 (1.1-2.2) L 05/07/17 20:49 Urine Osmolality 281 mOsm/kg (300-1090) L 05/08/17 05:39 Fluid Appearance Hazy (Clear) A 05/08/17 12:57 - Microbiology Findings Microbiology Findings: Microbiology, Last 48 Hours 05/08/17 12:57 Gram Stain - Final Left Upper Lobe Lung - Clinical Findings Intake & Output: Intake & Output 05/07/17 05/08/17 05/08/17 23:59 07:59 15:59 Intake Total 150 / 150 Output Total 425 / 425 Balance -425 / -425 150 / 150 - Attending Attestation I examined this patient and my medical decision-making was reviewed with the NON DESTRUCTIVE TESTING ENGINEER/PA/Advanced Practice Nurse/Resident Physician. I agree with the documented findings, disposition and treatment plan as described except to the extent set forth below. Patient seen and examined. Labs, radiology, chart personally reviewed. Agree with resident's history and physical, assessment, plan with following comments: LOGGING CREW FOREMAN: Patient follows commands, Pulmonary: Acceptable oxygenation and ventilation. Diminished breath sounds in the left side and dull on percussion consistent with pleural effusion and that was confirmed with bedside ultrasound. Bronchoscopy for hemoptysis is recommended and thoracentesis for pleural effusion and subsequently I think this patient will need Pleurx pleural catheter. A question about anticoagulation which I discussed it with primary team and advised patient to talk to his apparel fashion designer as well due to risk of bleeding from the malignancy, however that put him at risk of stroke from his underlying history of atrial fibrillation. Patient is asking for oxygen, however he is not qualified and I am hoping after thoracentesis he will feel better. Discussed this in detail with patient and also his family at bedside. He can follow-up as outpatient in about 2-3 weeks or sooner if he has pleural effusion which could be symptomatic.
[2017-05-08] MEDS ORDERED: *HR* FentaNYL (PF) 100 MCG/2 ML VIAL ONE (10:14)
[2017-05-08] MEDS ORDERED: Lidocaine Viscous Oral Soln 15 ML SOLUTION ONE (10:14)
[2017-05-08] MEDS ORDERED: *HR* Midazolam HCl 5 MG/5 ML VIAL IVP ONE (10:14)
[2017-05-08] MEDS ORDERED: Budesonide/Formoterol 160/4.5 MDI IH SCH (10:15)
[2017-05-08] MEDS ORDERED: *HR* FentaNYL (PF) 100 MCG/2 ML VIAL IVP PRN (10:31)
[2017-05-08] MEDS ORDERED: *HR* Midazolam HCl 5 MG/5 ML VIAL IVP PRN (10:31)
[2017-05-08] MEDS ORDERED: Albuterol 2.5 MG/3 ML NEBULIZER IH ONE (10:31)
[2017-05-08] MEDS ORDERED: Lidocaine Viscous Oral Soln 15 ML SOLUTION MM ONE (10:31)
[2017-05-08] MEDS ORDERED: *HR* EPINEPHrine 1 MG/10 ML SYRINGE INTRATRACH PRN (10:31)
[2017-05-08] MEDS ORDERED: Tetracaine/Benzocaine/Butamben 200MG/SPRAY (100SPY/BOT) MM ONE (10:31)
--- NOTE | 2017-05-08 10:32 | Pre-Sedation Evaluation ---
Pre-sedation evaluation - Pre-sedation checklist Date of procedure: 05/08/17 Procedure: Bronchoscopy Recent Vitals: Last Vital Signs Temp 98.2 F 05/08/17 10:18 Pulse 92 05/08/17 10:18 Resp 22 05/08/17 10:18 BP 104/76 05/08/17 10:18 Pulse Ox 99 05/08/17 10:18 H&P (including ROS) documented in medical record: Yes Previous reaction to sedatives/anesthetics: No Dietary Status: NPO after Midnight Dentition: No loose teeth or bridges Possible difficult airway: No ASA Classification *see protocol: CLASS III-Severe systemic disease
[2017-05-08] MEDS ORDERED: 0.9 % Sodium Chloride 1,000 ML IVC SCH (10:45)
[2017-05-08 12:58] LABS: Source of Body Fluid LUL BAL
[2017-05-08 13:57] VITALS: BP 109/67
[2017-05-08 14:16] LABS: Source of Body Fluid THORACENTESIS
[2017-05-08 15:10] LABS: Appearance of Body Fluid Slightly Hazy (Clear); Volume of Body Fluid 17 mL
[2017-05-08 15:23] LABS: Appearance of Body Fluid Hazy (Clear); Volume of Body Fluid 130 mL
--- NOTE | 2017-05-08 15:48 | Discharge Summary ---
Date of Encounter: 05/08/17 Time of Encounter: 10:30 - Discharge Diagnosis (1) Acute hyponatremia Priority: Primary Status: Acute (2) Pleural effusion, left Priority: Primary Status: Acute (3) Diastolic CHF Priority: Secondary Status: Chronic Qualifiers: Congestive heart failure chronicity: chronic Qualified Code(s): I50.32 - Chronic diastolic (congestive) heart failure (4) Tobacco abuse Priority: Secondary Status: Chronic (5) Small cell lung cancer Priority: Secondary Status: Chronic Qualifiers: Laterality: left Qualified Code(s): C34.92 - Malignant neoplasm of unspecified part of left bronchus or lung (6) Hypomagnesemia Priority: Primary Status: Acute (7) Hypertension Priority: Secondary Status: Chronic Qualifiers: Hypertension type: essential hypertension Qualified Code(s): I10 - Essential (primary) hypertension (8) COPD (chronic obstructive pulmonary disease) Priority: Secondary Status: Chronic Qualifiers: COPD type: chronic bronchitis Chronic bronchitis type: unspecified Qualified Code(s): J42 - Unspecified chronic bronchitis (9) Atrial fibrillation and flutter Priority: Secondary Status: Chronic (10) CAD (coronary artery disease) Priority: Secondary Status: Chronic Qualifiers: Coronary Disease-Associated Artery/Lesion type: hoopa artery [place] vs. transplanted heart: hoopa heart Associated angina: without angina Qualified Code(s): I25.10 - Atherosclerotic heart disease of ho[place] coronary artery without angina pectoris - Discharge Medications Prescriptions: Furosemide [Lasix] 20 mg PO DAILY #20 tablet levoFLOXacin [Levaquin] 500 mg PO DAILY #7 tablet Home Medications: Metoprolol [Lopressor] 25 mg PO BID 11/24/16 [History] Pravastatin Sodium [Pravachol] 40 mg PO HS 11/26/16 [History] Aspirin [Lo-Dose Aspirin EC] 81 mg PO DAILY 03/04/17 [History] Dexamethasone [Decadron] 4 mg PO AD 03/04/17 [History] Lidocaine/Prilocaine CREAM [Emla] 1 gm TP AD 03/04/17 [History] Loratadine [Allergy Relief] 10 mg PO AD 03/04/17 [History] Magic Mouthwash [Magic Mouthwash BLM] 10 ml PO TID PRN 03/04/17 [History] Ondansetron HCl 8 mg PO Q8H PRN 03/04/17 [History] Prochlorperazine Maleate [Compazine] 10 mg PO Q6HR PRN 03/04/17 [History] Albuterol Sulfate [Albuterol Inhaler] 2 puff IH Q6HR #1 hfa.aer.ad 03/11/17 [Rx] Budesonide/Formoterol 160/4.5 [Symbicort 160/4.5] 1 puff IH BIDR #1 hfa.aer.ad 03/11/17 [Rx] Rivaroxaban [Xarelto] 20 mg PO DAILY #30 tablet 03/11/17 [Rx] Oxycodone HCl 15 mg PO Q2H PRN #60 tablet 04/29/17 [Rx] Oxycodone HCl [Oxycodone HCl ER] 15 mg PO Q12H #60 tab.er.12h 04/29/17 [Rx] Diltiazem CD (24hr) [Cardizem CD] 180 mg PO DAILY #30 cap.er.24h 05/07/17 [Rx] Furosemide [Lasix] 20 mg PO DAILY #20 tablet 05/08/17 [Rx] levoFLOXacin [Levaquin] 500 mg PO DAILY #7 tablet 05/08/17 [Rx] Allergies/Adverse Reactions: Allergies No Known Allergies Allergy (Verified 04/16/17 14:31) - Notes to Outpatient Provider Please f/up Pathology, final culture results from BAL/thoracentesis; Date of admission: 05/08/17 01:17 Primary care physician: PCP NO Discharging clinician: Lisy Hugo Anticipated date of discharge: 05/08/17 - Patient Status Disposition: Home, Self-Care Condition: Good Functional capacity at discharge: independent ambulation Overall status at discharge: patient is progressing back to baseline - Discharge Instructions Instructions: Furosemide (By mouth), Levofloxacin (By mouth), Chronic Obstructive Pulmonary Disease (DC) Follow Up With: Gavin Adams MD [Partnered Physician] - 05/15/17 12:50 pm (follow up as schedule...) Additional Instructions: F/up with with [facility] in 3-5 days F/up with PCP in 1-2 weeks - Diet and Activity Activity: resume usual activities as tolerated Diet: low fat, low cholesterol, low salt diet Hospital course: Mr. Farias is a 66 year old male with recently diagnosed left small cell lung cancer, on chemotherapy radiation, was admitted with worsening shortness of breath. Imaging done in the emergency room showed left-sided pleural effusion and patient was noted to have hypoxia, requiring supplemental oxygen, along with bilateral pedal edema. He was started on IV Lasix and empiric IV antibiotics for possible underlying pneumonia. Pulmonology was consulted and patient also reported at least a few weeks of intermittent hemoptysis. He underwent bronchoscopy with BAL along with left-sided thoracentesis with at least 1400 mL hematologic fluid output. Gram stain is negative, pathology and culture results are pending at the time of this note. Patient significantly improved after the above treatment and requested to be discharged home. He was interested in obtaining home oxygen, however he does not qualify at this time and is saturating well on room air. He is otherwise medically stable for discharge with outpatient oncology follow-up. - Time Spent with Patient Total time spent providing and/or coordinating discharge services: Greater than 30 minutes (45 min) - Constitutional Vitals: Temp Pulse Resp BP Pulse Ox 98.2 F 95 16 109/67 100 05/08/17 12:50 05/08/17 13:57 05/08/17 13:57 05/08/17 13:57 05/08/17 13:57 General appearance: Present: A&O X 3 - Respiratory Respiratory exam: Present: decreased breath sounds (at right base), CTAB. Absent: accessory muscle use, rales, rhonchi, wheezes - Cardiovascular Cardiovascular exam: Present: RRR, +S1, +S2. Absent: diastolic murmur, gallop, rubs, systolic murmur
--- NOTE | 2017-05-08 15:56 | Procedure Note ---
Date of procedure: 05/08/17 Pre-op diagnosis: Malignant pleural effusion and shortness of breath Post-op diagnosis: same Procedure: Diagnostic and therapeutic thoracentesis Medications: Local lidocaine 1% 10 mL and 10 mL of 2% No immediate complications After obtaining informed consent, the patient was placed in a sitting position. Using ultrasound, the left hemithorax was examined revealing a moderatel to large sized pleural effusion. The best entry site was marked. The area was prepped in the usual sterile fashion. Fluid was aspirated using a catheter 8 range over 18-gauge needle which was placed in the mid-scapular line. 1350 mL of serosanguineous fluid was removed. Fluid was sent for routine pleural analysis and cytology. Patient's condition improved after the procedure. Chest x-ray was ordered for any evidence of pneumothorax or complications. Surgeon: Bonita Luis Condition: stable
--- NOTE | 2017-05-09 12:33 | Electrocardiograph Report ---
[place] [id number] Test Date: 2017-05-07 Pat Name: Allison Farias Department: [id number] Room: 2A44 Gender: M De Alcholizer: LETICIA : 1950 Requested By: John Smith Order Number: [id number] Reading MD: Rey Simeon Measurements Intervals [place] Rate: 95 P: 44 CA: 168 QRS: 34 QRSD: 78 T: 47 QT: 317 QTc: 369 Interpretive Statements SINUS RHYTHM WITH SINUS ARRHYTHMIA POSSIBLE LEFT ATRIAL ENLARGEMENT Electronically Signed On 05-09-2017 12:31:45 EDT by Rey Simeon
== END 2017-05-08 16:10 | disposition home or self-care (01) | DRG 167 ==
LOC: 2ANU 19:47 → EMEROO 19:47 → 2ANU 22:35
PROVIDERS: ADMIT Hospitalist; ATTEND Internal Medicine

== ENCOUNTER 2017-07-03 17:29 | Observation (INO) ==
[2017-07-03] MEDS ORDERED: Aspirin 81 MG TAB.CHEW PO ONE (17:59)
--- NOTE | 2017-07-03 18:01 | Emergency Department Note ---
Disposition Clinical Impression: Pericardial effusion, History of lung cancer Hypotension Qualifiers: Hypotension type: other hypotension type Qualified Code(s): I95.89 - Other hypotension Chest pain Qualifiers: Chest pain type: precordial pain Qualified Code(s): R07.2 - Precordial pain Disposition: Admitted As Inpatient Condition: Fair Forms: ED Satisfaction Letter Time of Disposition: 18:21 Chest Pain HPI - General Chief Complaint: ED Shortness of Breath/Dyspnea Stated Complaint: "sent from PCP, fluid on heart' Time Seen by Provider: 07/03/17 17:41 Source: patient, family Limitations: no limitations Vital Signs Reviewed: Yes Nursing Notes Reviewed: Yes - History of Present Illness HPI Narrative: Patient states 67-year-old male who was directed to come to the ED secondary to his oncologist and bilingual speech language pathologist Dr. Adams and Dr. Ayala respectively to the results of patient's echocardiogram performed earlier today. Patient was found to have a pericardial effusion surrounding the entire heart and patient was found to be hypotensive. Patient also complaining of chest pain 8/10 substernal without radiation. Patient also has a history of lung cancer. Patient does not report any fevers but does have some nausea. Severity scale (1-10): 10 - Related Data Home Medications Medication Instructions Recorded Confirmed Metoprolol [Lopressor] 25 mg PO BID 11/24/16 07/03/17 Aspirin [Lo-Dose Aspirin EC] 81 mg PO DAILY 03/04/17 07/03/17 Ondansetron HCl 8 mg PO Q8H PRN 03/04/17 07/03/17 Prochlorperazine Maleate 10 mg PO Q6HR PRN 03/04/17 07/03/17 [Compazine] FentaNYL PATCH [Duragesic] 25 mcg TD Q3D 06/16/17 07/03/17 Omeprazole [PriLOSEC] 20 mg PO DAILY 06/16/17 07/03/17 OxyCODONE Immed Rel [Roxicodone 15 15 mg PO Q4H PRN 06/16/17 07/03/17 MG] Albuterol Sulfate [Albuterol 2 puff IH Q6HR PRN 07/03/17 07/03/17 Inhaler] Lidocaine/Prilocaine [Emla] 1 appl TP AD 07/03/17 07/03/17 Magic Mouthwash [Magic Mouthwash 10 ml PO QID PRN 07/03/17 07/03/17 BLM] Methimazole [Tapazole] 5 mg PO BID 07/03/17 07/03/17 Oxygen 2 l NS AD 07/03/17 07/03/17 Pravastatin Sodium [Pravachol] 40 mg PO HS 07/03/17 07/03/17 Previous Rx's Medication Instructions Recorded Diltiazem CD (24hr) [Cardizem CD] 180 mg PO DAILY #30 cap.er.24h 05/07/17 Budesonide/Formoterol 160/4.5 1 puff IH BIDR #1 hfa.aer.ad 05/14/17 [Symbicort 160/4.5] Rivaroxaban [Xarelto] 20 mg PO DAILY #30 tablet 05/14/17 Digoxin [Lanoxin] 0.25 mg PO DAILY #30 tablet 06/16/17 Guaifenesin [Mucus-ER Max] 1,200 mg PO BID #60 tab.er.12h 06/17/17 LORazepam [Ativan] 1 mg PO QID PRN #90 tablet 06/22/17 Furosemide [Lasix] 20 mg PO DAILY PRN #45 tablet 06/23/17 Allergies Allergy/AdvReac Type Severity Reaction Status Date / Time No Known Allergies Allergy Verified 07/03/17 17:36 All systems ED: reviewed and negative except as stated. Review of Systems: As Per HPI Constitutional: Denies: fever Eyes: Denies: vision change ENT ED: Denies: throat pain, congestion Cardiovascular: Reports: chest pain, palpitations Respiratory: Reports: cough, dyspnea, sputum production Gastrointestinal: Reports: nausea. Denies: abdominal pain, vomiting, diarrhea Genitourinary: Denies: urgency, dysuria Musculoskeletal: Denies: back pain, neck pain Chest Pain PMH - Past Medical History Medical history: Reports: arthritis, asthma, cancer, COPD, coronary artery disease, hyperlipidemia, hypertension, osteoporosis Surgical history: Reports: angioplasty/stent, other Psychiatric history: Reports: no psych history - Social History Smoking Status: Former smoker Alcohol use: Reports: none Drug use: Reports: none Physical Exam Vital Signs Temperature 98.0 F 07/03/17 17:31 Pulse Rate 77 07/03/17 17:31 Respiratory Rate 20 07/03/17 17:31 Blood Pressure 99/74 07/03/17 17:31 O2 Sat by Pulse Oximetry 94 07/03/17 17:31 Temperature 98.0 F 07/03/17 17:31 Pulse Rate 77 07/03/17 17:31 Respiratory Rate 20 07/03/17 17:31 Blood Pressure 99/74 07/03/17 17:31 O2 Sat by Pulse Oximetry 94 07/03/17 17:31 Oxygen Delivery Oxygen Delivery Room Air -General Appearance: Patient is a 67-year-old male who is alert and oriented 3 and in no acute distress. Patient is uncomfortable to chest pain and exacerbated with cough -Neurological exam: Cranial nerves II-12 intact, no focal deficits observed, strength equal 5/5 bilaterally in upper and lower extremities, cerebellar motion test negative. Negative loss of sensation - Head Head exam: atraumatic, normocephalic, normal inspection - Eye Eye exam: Present: normal appearance, PERRL, EOMI, negative for scleral icterus negative for conjunctival pallor - ENT ENT exam: normal exam, normal oropharynx, mucous membranes moist - Neck Neck exam: Present: normal inspection, full ROM, trachea midline, negative JVD - Chest Chest inspection: Present: Patient has bilateral equal rise and fall of chest wall. Non-tender to palpation. - Respiratory Respiratory exam: Rhonchi throughout lung clarke bilaterally Cardiovascular Cardiovascular exam: Present: Irregularly irregular heart rate, patient has A. fib on EKG not in RVR - Abdominal Exam Abdominal exam: Present: soft, nondistended, tender to palpation right upper quadrant, Bowel sounds normoactive throughout all 4 quadrants. Negative for hyper or hyperresonance. - Extremities Exam Extremities exam: Present: normal inspection, full ROM patient has bilateral lower extremity edema 2+ nonpitting - Back Exam Back exam: Present: normal inspection, full ROM. Absent: CVA tenderness (R), CVA tenderness (L) - Psychiatric Psychiatric exam: Present: normal affect, normal mood - Skin Skin exam: Present: warm, dry, intact, without pallor - General Limitations: no limitations General appearance: alert Course - Reevaluation(s) Reevaluation #1: ACS labs ordered, chest x-ray, troponin, Zofran for nausea Time: 18:10 Reevaluation #2: Patient significance bed and doing well. Patient accepts decision for admission Time: 18:20 - Consultations Consultation #1: Patient is accepted for admission by Maira Lizarraga CNP hospitalist Time: 18:21 Vital Signs Temperature 98.0 F 07/03/17 17:31 Pulse Rate 77 07/03/17 17:31 Respiratory Rate 20 07/03/17 17:31 Blood Pressure 99/74 07/03/17 17:31 O2 Sat by Pulse Oximetry 94 07/03/17 17:31 Temperature 98.0 F 07/03/17 17:31 Pulse Rate 81 07/03/17 19:00 Respiratory Rate 16 07/03/17 19:00 Blood Pressure 106/79 07/03/17 19:00 O2 Sat by Pulse Oximetry 97 07/03/17 19:33 Oxygen Delivery Oxygen Delivery Room Air Chest Pain - MDM Narrative Medical decision making narrative: Patient was sent over to ED by Dr. Ayala and Dr. Adams secondary to concerns for malignant pericardial effusion. Patient has a pericardial effusion surrounding the entire heart found on echocardiogram taken earlier today. Patient is hypotensive at 99/74 currently but was at 90 systolic earlier today. Chest x-ray shows pleural effusions and consolidation, troponin was negative, heart score 7 Patient is accepted for admission by Maira Lizarraga CNP hospitalist - Medical Records Medical records reviewed: Yes I reviewed the patient's medical records. Patient's echo shows normal EF. - Lab Data Lab results reviewed: Yes I reviewed the patient's lab results. Result diagrams: 07/03/17 18:08 07/03/17 18:08 Lab Results 07/03/17 07/03/17 07/03/17 Range/Units 18:08 18:08 18:08 WBC 11.5 H (4.3-11.1) K/mcL RBC 3.32 L (4.19-5.50) M/mcL Hgb 9.7 L (12.9-16.9) g/dL Hct 31.4 L (37.5-50.1) % MCV 94.6 (83.0-100.0) fL MCH 29.2 (28.0-33.3) pg MCHC 30.9 L (31.6-35.5) g/dL RDW 17.0 H (11.5-14.5) % Plt Count 278 (140-400) K/mcL MPV 9.6 (9.4-12.4) fL Immature Gran % 0.4 (0-4) % Seg Neutrophils % 74.9 % Lymphocytes % 15.9 % Monocytes % 8.4 % Eosinophils % 0.1 % Basophils % 0.3 % Neutrophils # 8.6 (1.6-8.9) K/mcL Lymphocytes # 1.8 (0.6-4.6) K/mcL Monocytes # 1.0 (0.0-1.3) K/mcL Eosinophils # 0.0 (0.0-0.6) K/mcL Basophils # 0.0 (0.0-0.2) K/mcL PT 33.3 H (9.4-12.1) Seconds INR 3.0 APTT 44.3 H (26.0-36.0) Seconds Sodium 131 L (136-145) mEq/L Potassium 4.4 (3.5-4.5) mEq/L Chloride 94 L (98-109) mEq/L Carbon Dioxide 31 H (19-29) mEq/L BUN 12 (8-26) mg/dL Creatinine 0.84 (0.72-1.25) mg/dL Est GFR ( Amer) > 60 (> 60) Est GFR (Non-Af Amer) > 60 (> 60) BUN/Creatinine Ratio 14 (6-26) Glucose 107 H (70-99) mg/dL Calculated Osmolality 272 L (280-300) Calcium 8.7 (8.6-10.8) mg/dL Troponin I (0-0.03) ng/mL 07/03/17 Range/Units 18:08 WBC (4.3-11.1) K/mcL RBC (4.19-5.50) M/mcL Hgb (12.9-16.9) g/dL Hct (37.5-50.1) % MCV (83.0-100.0) fL MCH (28.0-33.3) pg MCHC (31.6-35.5) g/dL RDW (11.5-14.5) % Plt Count (140-400) K/mcL MPV (9.4-12.4) fL Immature Gran % (0-4) % Seg Neutrophils % % Lymphocytes % % Monocytes % % Eosinophils % % Basophils % % Neutrophils # (1.6-8.9) K/mcL Lymphocytes # (0.6-4.6) K/mcL Monocytes # (0.0-1.3) K/mcL Eosinophils # (0.0-0.6) K/mcL Basophils # (0.0-0.2) K/mcL PT (9.4-12.1) Seconds INR APTT (26.0-36.0) Seconds Sodium (136-145) mEq/L Potassium (3.5-4.5) mEq/L Chloride (98-109) mEq/L Carbon Dioxide (19-29) mEq/L BUN (8-26) mg/dL Creatinine (0.72-1.25) mg/dL Est GFR ( Amer) (> 60) Est GFR (Non-Af Amer) (> 60) BUN/Creatinine Ratio (6-26) Glucose (70-99) mg/dL Calculated Osmolality (280-300) Calcium (8.6-10.8) mg/dL Troponin I 0.00 (0-0.03) ng/mL - Radiology Data Radiology results reviewed: Yes I reviewed the patient's radiology results. Chest X-Ray 07/03/17 17:59 IMPRESSION: The patient's known left lung mass is again seen. There is a persistent left-sided pleural effusion with consolidation in the left lung base, overall similar in appearance. D/ / Ivone Gamble MD / Ivone Gamble MD Interpreting Provider: Ivone Gamble MD - EKG Data EKG attestation: Yes I reviewed and interpreted this EKG. EKG results narrative: EKG taken at 07/03/2017 at 1740 hrs. shows atrial fibrillation at a rate of 70 bpm, patient's EKG does not show any ST elevations and depressions in leads, is low voltage across all leads. Patient does have a circumferential pericardial effusion Heart Score - Score History: Highly Suspicious EKG: Non Specific repolarisation Disturbance Age: Greater than 65 Risk Factors: Equal/Greater than 3 risk factor or history of atherosclerotic disease Troponin: Less than normal limit HEART Score Total: 7
[2017-07-03 18:13] LABS: Basophils % 0.3 %; Eosinophils % 0.1 %; Hematocrit 31.4 % (37.5-50.1); Hemoglobin 9.7 g/dL (12.9-16.9); Immature Granulocytes % 0.4 % (0-4); Lymphocytes # 1.8 K/mcL (0.6-4.6); Lymphocytes % 15.9 %; Mean Corpuscular HGB Conc 30.9 g/dL (31.6-35.5); Mean Corpuscular Hemoglobin 29.2 pg (28.0-33.3); Mean Corpuscular Volume 94.6 fL (83.0-100.0); Mean Platelet Volume 9.6 fL (9.4-12.4); Monocytes % 8.4 %; Neutrophils # 8.6 K/mcL (1.6-8.9); Platelet Count 278 K/mcL (140-400); Red Blood Count 3.32 M/mcL (4.19-5.50); Segmented Neutrophils % 74.9 %
--- NOTE | 2017-07-03 18:17 | Emergency Department Note ---
START Narrative - START START: I examined this patient and my medical decision-making was reviewed with the STATE EPIDEMIOLOGIST/PA/Advanced Practice Nurse/Resident Physician. I agree with the documented findings, disposition and treatment plan as described except to the extent set forth below. ED attending note: Patient seen with emergency medicine resident Dr. Swift. Please see a copy of his note for details of the H&P, evaluation, management and disposition of this patient. We independently had [id number] contact with the patient Briefly: 67-year-old male history of cancer had an echocardiogram at by cardiology showing a pericardial effusion. Patient has hypertension peripheral edema fatigue. We will be we will obtain screening labs EKG x-ray and admission. Provided 30 minutes of critical care services to this patient. Disposition pending
[2017-07-03 18:19] LABS: Prothrombin Time 33.3 Seconds (9.4-12.1)
[2017-07-03 18:22] LABS: Activated Partial Thrombo Time 44.3 Seconds (26.0-36.0)
[2017-07-03 18:25] LABS: BUN/Creatinine Ratio 14 (6-26); Blood Urea Nitrogen 12 mg/dL (8-26); Calcium 8.7 mg/dL (8.6-10.8); Carbon Dioxide 31 mEq/L (19-29); Chloride 94 mEq/L (98-109); Glucose 107 mg/dL (70-99); Osmolality,Calculated 272 (280-300); Potassium 4.4 mEq/L (3.5-4.5); Sodium 131 mEq/L (136-145); eGFR For African Americans > 60 (> 60); eGFR For Non-African Americans > 60 (> 60)
[2017-07-03] MEDS ORDERED: Naloxone 0.4 MG/ML INJ IVP PRN (20:36)
[2017-07-03] MEDS ORDERED: Ondansetron 4 MG/2 ML VIAL IVP PRN (20:36)
[2017-07-03] MEDS ORDERED: *HR* OxyCODONE Immed Rel 15 MG TABLET PO PRN (20:41)
[2017-07-03] MEDS ORDERED: *HR* FentaNYL PATCH 25 MCG PATCH TD SCH (22:00)
[2017-07-03] MEDS: *HR* LORazepam 1 MG TABLET PO PRN (22:32)
[2017-07-03] MEDS: Famotidine 20 MG TABLET PO SCH (22:32)
[2017-07-03] MEDS: Budesonide/Formoterol 160/4.5 MDI IH SCH (22:39)
--- NOTE | 2017-07-03 22:47 | Internal Med History&Physical ---
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 Stat echo done at the cardiology office showed EF of 55-60% with small to moderate circumferential pericardial effusion with no evidence of temp Concern for malignant pericardial effusion. Absent JVD, hemodynamically stable Reports chest pain improves with bending forward. EKG sinus rhythm with low voltage QRS. Plan: Currently patient is not in distress, hemodynamically stable. We will consult cardiology. CT surgery notified of the patient. Patient's INR is 3.0 degrees on several different atrial fibrillation. There is concerns of high risk of hemopericardium. Cardiac telemetry ICU bed Currently no emergent pericardiocentesis needed. NPO midnight (2) Lung cancer Current visit: Yes Status: Chronic Patient has small cell lung cancer currently being treated at [facility] oncology clinic. Follow-up by Dr. Lieberman. Last CT chest abdomen pelvis showed progression of disease with enlarging left perihilar mass Patient has a chronic left malignant pleural effusion Progression of bilateral adrenal nodules Currently on chemotherapy with Nivolumab plus Lpilimumab Plan: Consult oncology Patient is full code. Qualifiers: Laterality: left Lung location: overlapping sites Qualified Code(s): C34.82 - Malignant neoplasm of overlapping sites of left bronchus and lung (3) Atrial fibrillation Current visit: Yes Status: Acute History of atrial fibrillation Current EKG shows sinus rhythm with rate 80 On metoprolol and Cardizem and digoxin Anticoagulated on xeralto Plan: Continue metoprolol, Cardizem, digoxin hold xeralto Qualifiers: Atrial fibrillation type: paroxysmal Qualified Code(s): I48.0 - Paroxysmal atrial fibrillation (4) Hyponatremia Current visit: Yes Status: Acute chronic, stable 2nd to small cell lung cancer Plan: continue to monitor (5) Hypomagnesemia Current visit: Yes Status: Acute mag level 1.4 plan: will replace. Internal Medicine - H&P: HPI Chief complaint: pericardial effusion Admitted From: Home Plans for Post Hospital Care: Home History of present illness: Mr. Farias is a 67 year old male with history of small cell lung cancer presents from surgical garment inspector's office due to findings of moderate pericardial effusion. Patient's surgical garment inspector was concerned about malignant pericardial effusion and possible tamponade. Patient states that he has been having dull substernal chest pain with radiation with some nausea which started last week. States this chest pain improves with leaning forward. With this he has exertional shortness of breath and denies palpitations. He denies passing out. Patient's surgical garment inspector did a stat echo in the office showing a left ventricular ejection fraction of 55-60% with small to moderate circumferential pericardial effusion and no evidence of tamponade. Patient's oncologist also called the patient and informed him to go to the ER. Past Med Surg Social Fam HX - Past Medical History Medical history: arthritis, asthma, atrial fibrillation, cancer, COPD, coronary artery disease, hyperlipidemia, hypertension, osteoporosis, thyroid disease Psychiatric history: no psych history - Past Surgical History Surgical History: angioplasty/stent, other - Social History Smoking Status: Current every day smoker Packs per day: LESS THAN 1/4 PPD Smokeless Tobacco Status: Yes Alcohol use: none Drug use: none - Family History Father Living Status: Hx Family Cardiac Disorders: Yes Internal Medicine - H&P: Meds Metoprolol [Lopressor] 25 mg PO BID 11/24/16 [History] Aspirin [Lo-Dose Aspirin EC] 81 mg PO DAILY 03/04/17 [History] Ondansetron HCl 8 mg PO Q8H PRN 03/04/17 [History] Prochlorperazine Maleate [Compazine] 10 mg PO Q6HR PRN 03/04/17 [History] Diltiazem CD (24hr) [Cardizem CD] 180 mg PO DAILY #30 cap.er.24h 05/07/17 [Rx] Budesonide/Formoterol 160/4.5 [Symbicort 160/4.5] 1 puff IH BIDR #1 hfa.aer.ad 05/14/17 [Rx] Rivaroxaban [Xarelto] 20 mg PO DAILY #30 tablet 05/14/17 [Rx] Digoxin [Lanoxin] 0.25 mg PO DAILY #30 tablet 06/16/17 [Rx] FentaNYL PATCH [Duragesic] 25 mcg TD Q3D 06/16/17 [History] Omeprazole [PriLOSEC] 20 mg PO DAILY 06/16/17 [History] OxyCODONE Immed Rel [Roxicodone 15 MG] 15 mg PO Q4H PRN 06/16/17 [History] Guaifenesin [Mucus-ER Max] 1,200 mg PO BID #60 tab.er.12h 06/17/17 [Rx] LORazepam [Ativan] 1 mg PO QID PRN #90 tablet 06/22/17 [Rx] Furosemide [Lasix] 20 mg PO DAILY PRN #45 tablet 06/23/17 [Rx] Albuterol Sulfate [Albuterol Inhaler] 2 puff IH Q6HR PRN 07/03/17 [History] Lidocaine/Prilocaine [Emla] 1 appl TP AD 07/03/17 [History] Magic Mouthwash [Magic Mouthwash BLM] 10 ml PO QID PRN 07/03/17 [History] Methimazole [Tapazole] 5 mg PO BID 07/03/17 [History] Oxygen 2 l NS AD 07/03/17 [History] Pravastatin Sodium [Pravachol] 40 mg PO HS 07/03/17 [History] Allergies No Known Allergies Allergy (Verified 07/03/17 17:36) All Systems PM: A 10-system review of systems was performed and is negative for pertinent findings except as documented above in the HPI. Review of systems: Constitutional: Denies fever, chills HEENT: Reports headache, denies, vision changes, neck pain, sore throat, rhinorrhea Heart: Reports dull chest pain, denies palpitations Lung: Reports shortness of breath, productive sputum Abdomen: Denies abdominal pain nausea vomiting diarrhea Back: Denies back pain Kidney: Denies dysuria, hematuria Extremities: reports lower extremity swelling, denies pain Denies numbness, and tingling - Constitutional Vitals: Temp Pulse Resp BP Pulse Ox 98.0 F 84 20 114/68 98 07/03/17 17:31 07/03/17 21:00 07/03/17 21:40 07/03/17 21:40 07/03/17 21:00 - Other Additional findings: General: Alert and oriented to place time and situation. Without distress HEENT: Head atraumatic, normocephalic, EOMI, PERRLA, neck nontender to palpation , absent Lymphadenopathy, Moist Mucous Membranes, Heart: Regular rate and rhythm with no murmur, negative jvd and negative hepatojugular reflux, absent friction rub Lungs: Diffuse bilateral dry crackles, diminished breath sounds Abdomen: Soft nontender, nondistended positive bowel sounds Extremities: Mild bilateral pitting edema, full range of motion upper and lower extremity Skin: Warm and dry Neuro: Cranial nerves II through XII intact, sensation equal bilaterally, strength upper and lower extremity 5/5, alert oriented 3 Vascular: Pedal and radial pulses 2 out of 4 Internal Med - H&P Results - Labs CBC & Chem 7: 07/03/17 18:08 07/03/17 18:08 <Iain Herrera - Last Filed: 07/03/17 23:46> Date of Encounter: 07/03/17 Internal Medicine - H&P: HPI History of present illness: Mr. Farias is a 67 year old male All Systems PM: A 10-system review of systems was performed and is negative for pertinent findings except as documented above in the HPI. - Constitutional Vitals: Temp Pulse Resp BP Pulse Ox 98.5 F 82 20 130/83 97 07/03/17 22:00 07/03/17 22:00 07/03/17 22:40 07/03/17 22:00 07/03/17 22:40 Internal Med - H&P Results - Labs CBC & Chem 7: 07/03/17 18:08 07/03/17 18:08 - Attending Attestation I examined this patient and my medical decision-making was reviewed with the Resident Physician, Dr Jessee Daniel. I agree with the documented findings, disposition and treatment plan as described except to the extent set forth below. My findings are summarized below: Patient was sent for cardiology for evaluation of pericardial effusion. Currently in no acute distress awake alert oriented. Heart is regular S1-S2, slightly diminished. Lungs are clear. Plan: We will place in observation, monitor vital signs closely, consult cardiology. Hold Xarelto due to risk for hemopericardium.
[2017-07-03] MEDS: methIMAzole 5 MG TABLET PO SCH (23:32)
[2017-07-04] MEDS ORDERED: Magnesium Sulfate 1 GM in D5% in Water 100 ML IVPB ONE (01:06)
[2017-07-04] MEDS: *HR* LORazepam 1 MG TABLET PO PRN (04:31)
[2017-07-04] MEDS ORDERED: Benzonatate 100 MG CAPSULE PO PRN (05:31)
[2017-07-04 05:58] LABS: Hematocrit 29.4 % (37.5-50.1); Hemoglobin 9.2 g/dL (12.9-16.9); Mean Corpuscular HGB Conc 31.3 g/dL (31.6-35.5); Mean Corpuscular Hemoglobin 29.7 pg (28.0-33.3); Mean Corpuscular Volume 94.8 fL (83.0-100.0); Mean Platelet Volume 10.3 fL (9.4-12.4); Platelet Count 253 K/mcL (140-400)
[2017-07-04 06:20] LABS: BUN/Creatinine Ratio 14 (6-26); Blood Urea Nitrogen 11 mg/dL (8-26); Calcium 8.6 mg/dL (8.6-10.8); Carbon Dioxide 30 mEq/L (19-29); Chloride 95 mEq/L (98-109); Glucose 91 mg/dL (70-99); Osmolality,Calculated 271 (280-300); Sodium 131 mEq/L (136-145); eGFR For African Americans > 60 (> 60); eGFR For Non-African Americans > 60 (> 60)
[2017-07-04 06:30] LABS: INR 2.1; Prothrombin Time 23.2 Seconds (9.4-12.1)
[2017-07-04 06:32] LABS: Activated Partial Thrombo Time 38.3 Seconds (26.0-36.0)
[2017-07-04] MEDS: Budesonide/Formoterol 160/4.5 MDI IH SCH (08:10)
[2017-07-04] MEDS: Famotidine 20 MG TABLET PO SCH (08:42)
[2017-07-04] MEDS: methIMAzole 5 MG TABLET PO SCH (08:42)
[2017-07-04] MEDS ORDERED: Aspirin Enteric Coated 81 MG Tablet PO SCH (09:00)
[2017-07-04] MEDS ORDERED: *HR* Digoxin 0.25 MG TABLET PO SCH (09:00)
[2017-07-04] MEDS ORDERED: Diltiazem CD (24hr) 180 MG CAPSULE PO SCH (09:00)
--- NOTE | 2017-07-04 10:43 | Cardiology History & Physical ---
Date of Encounter: 07/04/17 Time of Encounter: 10:00 Assessment and Plan (1) Atrial fibrillation Current Visit: Yes Status: Acute Patient was diagnosed with newly discovered atrial flutter while hospitalized in November 2016 at [facility]. He was placed on xarelto at the time and rate controlled. He was scheduled to follow up with outpatient Cardiology but never did show for an appointment. He presents now in AFIB with rates that are controlled. He is on cardizem, metoprolol and digoxin. Heart rate and blood pressure are within acceptable limits. Renal function is normal. Recommend continuing current medical regimen. Otherwise, xarelto was not restarted during this hospitalization, presumably due to elevated INR of 3.0 on admission and now 2.1. Hgb is stable and there are no signs of bleeding. Recommend continuing xarelto for stroke prevention in setting of afib but can defer to Hematology/Oncology recommendations. Recommend outpatient Cardiology follow up with Dr. Flaco Ayala (previously scheduled with Dr. Ayala). We will sign off. Please call with questions. Qualifiers: Atrial fibrillation type: paroxysmal Qualified Code(s): I48.0 - Paroxysmal atrial fibrillation (2) Pericardial effusion Current Visit: Yes Status: Acute There is a small to moderate pericardial effusion on echo that was done yesterday. There were no signs of tamponade physiology. Patient is hemodynamically stable. Agree with echo recommendations; repeat limited echo in 1-2 weeks or if clinical symptoms change. History of Present Illness Chief complaint: not feeling well HPI: THIS IS A CONSULT NOTE AND NOT AN H&P Mr. Farias is a 67 year old male who while undergoing an echo yesterday, ordered by his Oncologist, complained of not feeling well. The Crystallizer Operator reading his echo instructed him to go to the ER to be evaluated. Per medical records, he told Hospitalist he had some chest pain. However, he tells me that he's feeling fine in his usual state of health. He denies chest pain or palpitations. He has some baseline SOB. He otherwise denies pre syncope or syncope. is at the bedside. Past Med Surg Social Fam HX - Past Medical History Medical history: arthritis, asthma, atrial fibrillation (atrial flutter while hospitalized in November 2016), cancer, COPD, coronary artery disease, hyperlipidemia, hypertension, osteoporosis, thyroid disease Psychiatric history: no psych history - Past Surgical History Surgical History: angioplasty/stent, other - Social History Smoking Status: Current every day smoker Packs per day: LESS THAN 1/4 PPD Smokeless Tobacco Status: Yes Alcohol use: none Drug use: none - Family History Father Living Status: Hx Family Cardiac Disorders: Yes Medications and Allergies Metoprolol [Lopressor] 25 mg PO BID 11/24/16 [History] Aspirin [Lo-Dose Aspirin EC] 81 mg PO DAILY 03/04/17 [History] Ondansetron HCl 8 mg PO Q8H PRN 03/04/17 [History] Prochlorperazine Maleate [Compazine] 10 mg PO Q6HR PRN 03/04/17 [History] Diltiazem CD (24hr) [Cardizem CD] 180 mg PO DAILY #30 cap.er.24h 05/07/17 [Rx] Budesonide/Formoterol 160/4.5 [Symbicort 160/4.5] 1 puff IH BIDR #1 hfa.aer.ad 05/14/17 [Rx] Rivaroxaban [Xarelto] 20 mg PO DAILY #30 tablet 05/14/17 [Rx] Digoxin [Lanoxin] 0.25 mg PO DAILY #30 tablet 06/16/17 [Rx] FentaNYL PATCH [Duragesic] 25 mcg TD Q3D 06/16/17 [History] Omeprazole [PriLOSEC] 20 mg PO DAILY 06/16/17 [History] OxyCODONE Immed Rel [Roxicodone 15 MG] 15 mg PO Q4H PRN 06/16/17 [History] Guaifenesin [Mucus-ER Max] 1,200 mg PO BID #60 tab.er.12h 06/17/17 [Rx] LORazepam [Ativan] 1 mg PO QID PRN #90 tablet 06/22/17 [Rx] Furosemide [Lasix] 20 mg PO DAILY PRN #45 tablet 06/23/17 [Rx] Albuterol Sulfate [Albuterol Inhaler] 2 puff IH Q6HR PRN 07/03/17 [History] Lidocaine/Prilocaine [Emla] 1 appl TP AD 07/03/17 [History] Magic Mouthwash [Magic Mouthwash BLM] 10 ml PO QID PRN 07/03/17 [History] Methimazole [Tapazole] 5 mg PO BID 07/03/17 [History] Oxygen 2 l NS AD 07/03/17 [History] Pravastatin Sodium [Pravachol] 40 mg PO HS 07/03/17 [History] Allergies No Known Allergies Allergy (Verified 07/03/17 17:36) All Systems Review: A 10-system review of systems was performed and is negative for pertinent findings except as documented above in the HPI. - Cardiovascular Cardiovascular: as per HPI Physical Examination Vital Signs, Last 4 Hours Temp Pulse Resp BP Pulse Ox 07/04/17 08:47 98.5 F 76 16 113/74 99 07/04/17 08:15 16 99 General: Conversant, No Apparent Distress, Other (very interested in eating breakfast) HEENT: Atraumatic, Normocephaly, Mucus Membranes Moist Neck: No JVD Cardiac: Other (irregularly irregular, no apparent murmur/rub/gallop) Lungs: Other (crackles left side) Neuro: Alert and responsive, No focal deficits noted Abdomen: Soft, Non-Tender, Other (bowel sounds present, nondistended) Extremities: Other (no significant LE edmea) Results 07/04/17 05:18 07/04/17 05:18 Lab Results 07/04/17 07/04/17 07/04/17 05:18 05:18 05:18 WBC 12.0 H Hgb 9.2 L Hct 29.4 L Plt Count 253 INR 2.1 APTT 38.3 H Sodium 131 L Potassium 4.0 Chloride 95 L Carbon Dioxide 30 H BUN 11 Creatinine 0.78 Glucose 91 Calcium 8.6 - Imaging and Cardiology Chest Xray: report reviewed Echo: report reviewed, image reviewed (07/03/2017) - EKG Interpretation EKG results cardiology: personally reviewed (ECG from 07/01 and 07/03 were reviewed ; both are similar in appearance without acute findings and with demonstrating of afib with normal rate), other (24h telemetry demonstrates AFIB, average HR 77 bpm without concerning dysrhythmia) - VTE Documentation of Mechanical Device: Intermittent pneumatic compression device
--- NOTE | 2017-07-04 11:02 | Oncology Inp Consult Note ---
Date of Encounter: 07/04/17 Time of Encounter: 08:45 Assessment and Plan (1) Lung cancer Status: Chronic Assessment and plan: Mr. Farias has a small to moderate pericardial effusion with probably related to his cancer. I reviewed his case with the cardiology attending on-call this weekend. We both think he can go home with close follow-up. We will arrange for repeat echocardiography in 2 weeks' time. He has an appointment with Dr. Adams Thursday and his treatment is planned for later this week. We will delay imaging until following this treatment. I will communicate this with Dr. Adams. From my perspective, he may be discharged home today. Please call [phone] with concerns or questions Qualifiers: Laterality: left Lung location: overlapping sites Qualified Code(s): C34.82 - Malignant neoplasm of overlapping sites of left bronchus and lung - Data of Consult Requesting Physician: Geoffrey Thomas MD Primary Care Provider: PCP NONE - Consult Narrative Reason for consult: Pericardial effusion History of present illness: Mr. Farias is a 67 year old male was under the care of my partner, Dr. 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 Patient was initially diagnosed in November 2016 was placed on cisplatin and etoposide chemotherapy. This was transitioned to carboplatin and etoposide secondary to tolerance. He completed 4 cycles of carboplatin with etoposide after being found to have progression of disease. On April 23, he was placed on combination of Nivolumab and Ipilumumab. Most recent imaging May 12 [id number] revealed an enlarging left perihilar mass with mediastinal and right hilar lymphadenopathy as well as pleural effusion. Bilateral adrenal nodules had increased as well. The decision was to continue with therapy and repeat imaging was scheduled for yesterday. Patient did undergo echocardiography for a known pericardial effusion as well as a history of atrial fibrillation. This showed a small to moderate pericardial effusion with no evidence of tamponade physiology. As the patient reported feeling poorly, the presbyterian clergy recommended he proceed to the emergency room immediately. As the patient went home instead, we were contacted in the oncology office by the cardiology nurse recommended the patient proceed to the emergency department as she believed Dr. Ayala was concerned about the pericardial effusion. My nurse, Poonam, did contact the patient and alerted him to the recommendations of cardiology and recommend ER visitation. The patient has been admitted. The patient has seen Dr. Roy of cardiothoracic surgery who recommended against pericardial window placement given the small size of his effusion and lack of symptoms. Cardiology is also evaluated by the patient and preliminarily agree with close observation. I am asked to help with management of this patient from an oncologic perspective In speaking with Mr. Farias today, he feels well. He is not short of breath. Denies any chest pain. He was a bit hypotensive in the echocardiography room yesterday but this has resolved. He is feeling well and wants to go home. Past Med Surg Social Fam HX - Past Medical History Medical history: arthritis, asthma, atrial fibrillation (atrial flutter while hospitalized in November 2016), cancer, COPD, coronary artery disease, hyperlipidemia, hypertension, osteoporosis, thyroid disease Psychiatric history: no psych history - Past Surgical History Surgical History: angioplasty/stent, other - Social History Smoking Status: Current every day smoker Packs per day: LESS THAN 1/4 PPD Smokeless Tobacco Status: Yes Alcohol use: none Drug use: none - Family History Father Living Status: Hx Family Cardiac Disorders: Yes Medications and Allergies Metoprolol [Lopressor] 25 mg PO BID 11/24/16 [History] Aspirin [Lo-Dose Aspirin EC] 81 mg PO DAILY 03/04/17 [History] Ondansetron HCl 8 mg PO Q8H PRN 03/04/17 [History] Prochlorperazine Maleate [Compazine] 10 mg PO Q6HR PRN 03/04/17 [History] Diltiazem CD (24hr) [Cardizem CD] 180 mg PO DAILY #30 cap.er.24h 05/07/17 [Rx] Budesonide/Formoterol 160/4.5 [Symbicort 160/4.5] 1 puff IH BIDR #1 hfa.aer.ad 05/14/17 [Rx] Rivaroxaban [Xarelto] 20 mg PO DAILY #30 tablet 05/14/17 [Rx] Digoxin [Lanoxin] 0.25 mg PO DAILY #30 tablet 06/16/17 [Rx] FentaNYL PATCH [Duragesic] 25 mcg TD Q3D 06/16/17 [History] Omeprazole [PriLOSEC] 20 mg PO DAILY 06/16/17 [History] OxyCODONE Immed Rel [Roxicodone 15 MG] 15 mg PO Q4H PRN 06/16/17 [History] Guaifenesin [Mucus-ER Max] 1,200 mg PO BID #60 tab.er.12h 06/17/17 [Rx] LORazepam [Ativan] 1 mg PO QID PRN #90 tablet 06/22/17 [Rx] Furosemide [Lasix] 20 mg PO DAILY PRN #45 tablet 06/23/17 [Rx] Albuterol Sulfate [Albuterol Inhaler] 2 puff IH Q6HR PRN 07/03/17 [History] Lidocaine/Prilocaine [Emla] 1 appl TP AD 07/03/17 [History] Magic Mouthwash [Magic Mouthwash BLM] 10 ml PO QID PRN 07/03/17 [History] Methimazole [Tapazole] 5 mg PO BID 07/03/17 [History] Oxygen 2 l NS AD 07/03/17 [History] Pravastatin Sodium [Pravachol] 40 mg PO HS 07/03/17 [History] Allergies No Known Allergies Allergy (Verified 07/03/17 17:36) All systems: reviewed and no additional remarkable complaints except as stated Constitutional: Present: fatigue, lethargy Eyes: Present: as per HPI Ears: Present: as per HPI Nose, mouth and throat: Present: as per HPI Cardiovascular: Present: as per HPI Respiratory: Present: cough, dyspnea (Stable and chronic) Gastrointestinal: Present: as per HPI Musculoskeletal: Present: as per HPI Integumentary: Present: as per HPI Neurological: Present: as per HPI Oncology - Exam - Constitutional Vitals: Temp Pulse Resp BP Pulse Ox 98.5 F 76 16 113/74 99 07/04/17 08:47 07/04/17 08:47 07/04/17 08:47 07/04/17 08:47 07/04/17 08:47 - Head Head exam: Present: atraumatic, normal inspection, normocephalic - Eye Eye exam: Present: normal appearance, conjuntiva pink, sclera anicteric - ENT ENT exam: Present: mucous membranes moist, normal exam, normal oropharynx - Neck Neck exam: Present: full ROM, normal inspection - Respiratory Respiratory exam: Present: decreased breath sounds - Cardiovascular Cardiovascular exam: Present: RRR - GI/Abdominal GI/Abdominal exam: Present: normal bowel sounds, soft - Extremities Exam Extremities exam: Present: full ROM, normal inspection - Neurological Exam Neurological exam: Present: alert, CN II-XII intact, normal gait, oriented X3 Oncology - Results - Labs Labs: Short CBC 07/04/17 Range/Units 05:18 WBC 12.0 H (4.3-11.1) K/mcL Hgb 9.2 L (12.9-16.9) g/dL Hct 29.4 L (37.5-50.1) % Plt Count 253 (140-400) K/mcL BMP 07/04/17 05:18 Sodium 131 L Potassium 4.0 Chloride 95 L Carbon Dioxide 30 H BUN 11 Creatinine 0.78 Glucose 91 Calcium 8.6 Consult Discharge Plan - Plan Referrals: NONE,PCP [Primary Care Provider] -
[2017-07-04 15:13] VITALS: BP 99/64
--- NOTE | 2017-07-04 16:19 | Discharge Summary ---
Date of Encounter: 07/04/17 Time of Encounter: 15:45 - Discharge Diagnosis (1) Pericardial effusion Priority: Primary Status: Acute Comments: Patient was seen by both cardiology and oncology and cleared for outpatient follow-up. Repeat echo in 2 weeks or sooner if needed (2) Diastolic CHF Priority: Secondary Status: Chronic Comments: No acute exacerbation Qualifiers: Congestive heart failure chronicity: chronic Qualified Code(s): I50.32 - Chronic diastolic (congestive) heart failure (3) Atrial fibrillation Priority: Secondary Status: Chronic Comments: Placed back on Xarelto. Rate controlled. Follow-up outpatient Qualifiers: Atrial fibrillation type: paroxysmal Qualified Code(s): I48.0 - Paroxysmal atrial fibrillation (4) Small cell lung cancer Priority: Secondary Status: Chronic (5) Hypomagnesemia Priority: Primary Status: Acute Comments: Replaced while admitted, likely resolved, follow up outpatient (6) Hypertension Priority: Secondary Status: Chronic Comments: Controlled/borderline hypotensive at times. Recommend daily blood pressure checks at home, and keeping a log for primary care team. Qualifiers: Hypertension type: essential hypertension Qualified Code(s): I10 - Essential (primary) hypertension (7) COPD (chronic obstructive pulmonary disease) Priority: Secondary Status: Chronic Comments: No acute exacerbation Qualifiers: COPD type: chronic bronchitis Chronic bronchitis type: unspecified Qualified Code(s): J42 - Unspecified chronic bronchitis (8) CAD (coronary artery disease) Priority: Secondary Status: Chronic Comments: Patient denied chest pain or shortness of breath above his norm during this admission. Follow-up outpatient Qualifiers: Coronary Disease-Associated Artery/Lesion type: [place] artery [place] vs. transplanted heart: [place] heart Associated angina: without angina Qualified Code(s): I25.10 - Atherosclerotic heart disease of [place] coronary artery without angina pectoris (9) Hyponatremia Priority: Secondary Status: Chronic Comments: Stable, chronic, follow-up outpatient - Discharge Medications Home Medications: Metoprolol [Lopressor] 25 mg PO BID 11/24/16 [History] Aspirin [Lo-Dose Aspirin EC] 81 mg PO DAILY 03/04/17 [History] Ondansetron HCl 8 mg PO Q8H PRN 03/04/17 [History] Prochlorperazine Maleate [Compazine] 10 mg PO Q6HR PRN 03/04/17 [History] Diltiazem CD (24hr) [Cardizem CD] 180 mg PO DAILY #30 cap.er.24h 05/07/17 [Rx] Budesonide/Formoterol 160/4.5 [Symbicort 160/4.5] 1 puff IH BIDR #1 hfa.aer.ad 05/14/17 [Rx] Rivaroxaban [Xarelto] 20 mg PO DAILY #30 tablet 05/14/17 [Rx] Digoxin [Lanoxin] 0.25 mg PO DAILY #30 tablet 06/16/17 [Rx] FentaNYL PATCH [Duragesic] 25 mcg TD Q3D 06/16/17 [History] Omeprazole [PriLOSEC] 20 mg PO DAILY 06/16/17 [History] OxyCODONE Immed Rel [Roxicodone 15 MG] 15 mg PO Q4H PRN 06/16/17 [History] Guaifenesin [Mucus-ER Max] 1,200 mg PO BID #60 tab.er.12h 06/17/17 [Rx] LORazepam [Ativan] 1 mg PO QID PRN #90 tablet 06/22/17 [Rx] Furosemide [Lasix] 20 mg PO DAILY PRN #45 tablet 06/23/17 [Rx] Albuterol Sulfate [Albuterol Inhaler] 2 puff IH Q6HR PRN 07/03/17 [History] Lidocaine/Prilocaine [Emla] 1 appl TP AD 07/03/17 [History] Magic Mouthwash [Magic Mouthwash BLM] 10 ml PO QID PRN 07/03/17 [History] Methimazole [Tapazole] 5 mg PO BID 07/03/17 [History] Oxygen 2 l NS AD 07/03/17 [History] Pravastatin Sodium [Pravachol] 40 mg PO HS 07/03/17 [History] Allergies/Adverse Reactions: Allergies No Known Allergies Allergy (Verified 07/03/17 17:36) Date of admission: 07/03/17 21:20 Primary care physician: PCP NONE Consults: 07/03/17 21:48 Consult to Cardiothoracic Surgery [CONS] Routine Consulting Provider: Cardiothoracic Surgery [place] Reason for Consult: pericadial effusion concern for tamponade Call Completed: Yes Consult to Oncology [CONS] Routine Consulting Provider: Oncology [facility] Reason for Consult: concern for malignant pericardial effusion Call Completed: Yes Discharging clinician: Tarah Farias Anticipated date of discharge: 07/04/17 - Patient Status Disposition: Home, Self-Care Condition: Fair Functional capacity at discharge: independent ambulation Overall status at discharge: patient is back to baseline - Discharge Instructions Follow Up With: Gavin Adams MD [Partnered Physician] - Flaco Ayala DO [Partnered Physician] - Davide Aguiar MD [Non-Partnered Physician] - Additional Instructions: Follow-up with oncologist next week as planned, follow-up with printer repair technician as planned, follow-up with primary care provider as needed - Diet and Activity Activity: increase activity as tolerated Diet: advance to your usual diet Hospital course: Mr. Farias is a 67 year old male with past medical history of small cell lung cancer currently on chemotherapy, atrial fibrillation on Xarelto, COPD, CAD status post stent, hyperlipidemia, hypertension, hypothyroidism, tobacco abuse. Patient was at his printer repair technician's office where moderate pericardial effusion was noted and there was concern for possible malignant pericardial effusion with possible tamponade so the patient was sent to the emergency department. Patient states that he had dull, substernally located chest pain with radiation and associated Symptoms include nausea which started on the week prior to presentation. Patient saying the chest pain improves when he leans forward. He also endorsed exertional shortness of breath, he denied palpitations. He denied syncope. A stat echo and the printer repair technician office revealed ejection fraction of 55-60% with small to moderate circumferential pericardial effusion without evidence of tamponade. The patient's oncologist also called and directed him to go to the emergency department. Workup in the emergency department unremarkable. Chest x-ray without acute processes. Patient was admitted to the hospitalist service for further evaluation and management. He was seen by both oncology and cardiology and he was cleared for outpatient follow-up. Recommendation to repeat echocardiogram within 1-2 weeks or sooner if indicated. Patient denied chest pain or shortness of breath throughout this admission. He was discharged home in stable condition with close outpatient follow-up recommended. ITS Impressions Chest X-Ray 07/03/17 17:59 IMPRESSION: The patient's known left lung mass is again seen. There is a persistent left-sided pleural effusion with consolidation in the left lung base, overall similar in appearance. D/ / Ivone Gamble MD / Ivone Gamble MD Interpreting Provider: Ivone Gamble MD - Time Spent with Patient Total time spent providing and/or coordinating discharge services: - Constitutional Vitals: Temp Pulse Resp BP Pulse Ox 97.7 F 83 16 99/64 93 07/04/17 15:11 07/04/17 15:11 07/04/17 15:11 07/04/17 15:11 07/04/17 15:11 General appearance: Present: A&O X 3, pleasant, no acute distress, answers questions appropriately - Head Head exam: Present: atraumatic, normocephalic - Eye Eye exam: Present: PERRL, conjuntiva pink, sclera anicteric Pupils: Present: PERRL - Neck Neck exam general surgery: Present: supple, trachea midline. Absent: lymphadenopathy - Respiratory Respiratory exam: Present: decreased breath sounds. Absent: accessory muscle use, rales, respiratory distress, rhonchi, wheezes - Cardiovascular Cardiovascular exam: Present: RRR, +S1, +S2. Absent: diastolic murmur, gallop, rubs, systolic murmur - GI/Abdominal GI/Abdominal exam: Present: normal bowel sounds, soft, no peritoneal signs. Absent: distended, tenderness - Extremities Exam Extremities exam: Present: warm, radial pulses palpable and symmetrical. Absent : calf tenderness, cyanotic, pedal edema - Neurological Exam Neurological exam: Present: alert, CN II-XII intact, normal gait, oriented X3, no focal deficits, strengths equal and symetr throughout. Absent: pronater drift, facial droop, speech deficit - Skin Skin exam: Present: dry, intact, pallor, warm - VTE Documentation of Mechanical Device: Intermittent pneumatic compression device
--- NOTE | 2017-07-05 12:37 | Electrocardiograph Report ---
[address] [place], [place] [address] Test Date: 2017-07-03 Pat Name: Allison Farias Department: 102 Room: 3B31 Gender: M Spray Booth Operator: Priyanka : 1950 Requested By: Sj Junior Order Number: [id number] Reading MD: Prachi Hsu Measurements Intervals [place] Rate: 70 P: AR: 0 QRS: 61 QRSD: 89 T: -66 QT: 323 QTc: 345 Interpretive Statements ATRIAL FIBRILLATION LOW QRS VOLTAGE POSSIBLE SEPTAL MYOCARDIAL INFARCTION OF INDETERMINATE AGE MODERATE T-WAVE ABNORMALITY, CONSIDER LATERAL ISCHEMIA Electronically Signed On 07-05-2017 12:35:44 EDT by Prachi Hsu
== END 2017-07-04 16:40 | disposition home or self-care (01) ==
LOC: ICNU 17:29 → EMEROO 17:29 → ICNU 21:55 → 3BNU 07-04 04:21
PROVIDERS: ADMIT Nurse Practitioner Family; ATTEND Family Medicine

== ENCOUNTER 2018-01-04 12:03 | Inpatient (IN) ==
[2018-01-04 13:44] LABS: Basophils # 0.1 K/mcL (0.0-0.2); Basophils % 0.6 %; Eosinophils % 0.1 %; Hematocrit 39.8 % (37.5-50.1); Hemoglobin 13.8 g/dL (12.9-16.9); Immature Granulocytes % 0.4 % (0-4); Lymphocytes # 3.5 K/mcL (0.6-4.6); Lymphocytes % 34.5 %; Mean Corpuscular HGB Conc 34.7 g/dL (31.6-35.5); Mean Corpuscular Hemoglobin 31.9 pg (28.0-33.3); Mean Corpuscular Volume 91.9 fL (83.0-100.0); Mean Platelet Volume 10.5 fL (9.4-12.4); Monocytes # 0.9 K/mcL (0.0-1.3); Monocytes % 9.3 %; Neutrophils # 5.6 K/mcL (1.6-8.9); Platelet Count 252 K/mcL (140-400); Red Blood Count 4.33 M/mcL (4.19-5.50); Red Cell Distribution Width 11.9 % (11.5-14.5); Segmented Neutrophils % 55.1 %
[2018-01-04 14:05] LABS: Alanine Aminotransferase 7 Units/L (7-52); Albumin 3.9 g/dL (3.5-5.7); Albumin/Globulin Ratio 1.1 (1.1-2.2); Alkaline Phosphatase 74 Units/L (34-104); Aspartate Amino Transferase 16 Units/L (13-39); BUN/Creatinine Ratio 21 (6-26); Bilirubin,Direct 0.1 mg/dL (0.0-0.2); Bilirubin,Indirect 0.4 mg/dL (0.0-1.2); Bilirubin,Total 0.5 mg/dL (0.3-1.0); Blood Urea Nitrogen 18 mg/dL (8-23); Calcium 9.9 mg/dL (8.6-10.3); Carbon Dioxide 23 mEq/L (23-29); Chloride 96 mEq/L (98-107); Globulin 3.4 g/dL (2.4-3.5); Glucose 102 mg/dL (70-105); Lipase 5 Units/L (11-82); Osmolality,Calculated 276 (280-300); Potassium 3.4 mEq/L (3.5-5.1); Sodium 132 mEq/L (136-145); Total Protein 7.3 g/dL (6.4-8.9); eGFR For African Americans > 60 (> 60); eGFR For Non-African Americans > 60 (> 60)
[2018-01-04] MEDS ORDERED: 0.9 % Sodium Chloride 1,000 ML IVC ONE (15:01)
[2018-01-04 15:28] LABS: Bilirubin,Urine Small (Negative); Blood,Urine Negative (Negative); Clarity,Urine Clear (Clear); Color,Urine Yellow (Yellow); Glucose,Urine (UA) Normal (Normal); Ketones,Urine 15 mg/dL (Negative); Leukocyte Esterase,Urine Negative (Negative); Nitrite,Urine Negative (Negative); Protein,Urine 30 mg/dL (Neg-Trace); Specific Gravity,Urine 1.026 (1.010-1.025); Urobilinogen,Urine Normal (Normal)
[2018-01-04 15:32] LABS: Bacteria,Urine None Seen per hpf (None-Few); Hyaline Casts,Urine None Seen per lpf (None-Few); Squamous Epithelial Cell,Urine Moderate per lpf (None-Few)
--- NOTE | 2018-01-04 15:52 | Emergency Department Note ---
Disposition Clinical Impression: Weakness, Hyponatremia, Dehydration Failure to thrive Qualifiers: Failure to thrive age range: in adult Qualified Code(s): R62.7 - Adult failure to thrive Small cell lung cancer Qualifiers: Laterality: unspecified laterality Qualified Code(s): C34.90 - Malignant neoplasm of unspecified part of unspecified bronchus or lung Disposition: Admitted As Inpatient Condition: Good Time of Disposition: 18:16 General Adult HPI - General Chief complaint: ED Abdominal Pain Stated complaint: sick/can't eat or ambulate/wt loss/problems moving Source: patient Limitations: no limitations - History of Present Illness HPI Narrative: 67-year-old male with significant past medical history of 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 According to family members at bedside patient has had decreased appetite for the past week. This is progressively been getting worse and they are concerned because he has lost a significant amount of weight. Patient denies any nausea, vomiting or diarrhea. He does state he just has no urge to eat. He has been drinking a significant amount of water. Patient was seen in the oncology office today and was sent here for further workup and possible admission. Pain Scale: 10 - Related Data Home Medications Medication Instructions Recorded Confirmed Budesonide/Formoterol 160/4.5 1 puff IH BIDR 12/29/17 01/04/18 [Symbicort 160/4.5] Citalopram [CeleXA] 40 mg PO DAILY 12/29/17 01/04/18 Digoxin [Lanoxin] 0.25 mg PO DAILY 12/29/17 01/04/18 Diltiazem CD (24hr) [Cardizem CD] 180 mg PO DAILY 12/29/17 01/04/18 Furosemide [Lasix] 20 mg PO DAILY 12/29/17 01/04/18 LORazepam [Ativan] 1 mg PO QID PRN 12/29/17 01/04/18 Levothyroxine [Synthroid] 100 mcg PO QAM 12/29/17 01/04/18 OxyCODONE Immed Rel [Roxicodone 15 15 mg PO Q6HR PRN 12/29/17 01/04/18 MG] Oxygen 2 l NS AD 12/29/17 01/04/18 methIMAzole [Tapazole] 5 mg PO BID 12/29/17 01/04/18 Albuterol Sulfate [Albuterol 2 puff IH Q4H PRN 01/04/18 01/04/18 Inhaler] Aspirin Enteric Coated [Aspirin EC] 81 mg PO DAILY 01/04/18 01/04/18 FentaNYL PATCH [Duragesic] 25 mcg TD Q72H 01/04/18 01/04/18 Guaifenesin [Mucinex] 1,200 mg PO BID 01/04/18 01/04/18 Lidocaine/Prilocaine CREAM [Emla] 1 appl TP AD 01/04/18 01/04/18 Magic Mouthwash [Magic Mouthwash 10 ml PO QID PRN 01/04/18 01/04/18 BLM] Metoprolol [Lopressor] 25 mg PO BID 01/04/18 01/04/18 Omeprazole [PriLOSEC] 20 mg PO DAILY 01/04/18 01/04/18 Ondansetron [Zofran] 8 mg PO Q8H PRN 01/04/18 01/04/18 Pravastatin Sodium [Pravachol] 40 mg PO HS 01/04/18 01/04/18 Prochlorperazine Maleate 10 mg PO Q6H PRN 01/04/18 01/04/18 [Compazine] Rivaroxaban [Xarelto] 20 mg PO DAILY 01/04/18 01/04/18 Allergies Allergy/AdvReac Type Severity Reaction Status Date / Time No Known Allergies Allergy Verified 01/04/18 12:25 All systems ED: reviewed and negative except as stated. Constitutional: Reports: weakness. Denies: fever, chills Cardiovascular: Denies: chest pain, palpitations Respiratory: Denies: cough, dyspnea Gastrointestinal: Denies: abdominal pain, nausea, vomiting Musculoskeletal: Reports: back pain Integumentary: Denies: abrasion Neurological: Denies: headache, numbness Endocrine: Reports: fatigue Past Medical History - Past Medical History Attestation: Yes The following information was validated with the patient. Medical history: Reports: arthritis, asthma, atrial fibrillation, cancer, COPD, coronary artery disease, hyperlipidemia, hypertension, osteoporosis, thyroid disease Surgical history: Reports: angioplasty/stent, other (Lung biopsy, squamous cell cancer) Psychiatric history: Reports: anxiety - Social History Smoking Status: Current every day smoker Smokeless Tobacco Status: Yes Alcohol use: Reports: none Drug use: Reports: none Physical Exam - General Limitations: no limitations General appearance: alert - Head Head exam: atraumatic, normocephalic, normal inspection - Eye Eye exam: Present: normal appearance. Absent: scleral icterus, conjunctival injection - ENT ENT exam: mucous membranes dry - Neck Neck exam: Present: normal inspection, full ROM - Chest Chest inspection: Present: normal inspection, symmetric chest wall rise. Absent : tenderness, rash - Respiratory Respiratory exam: Present: other (coarse breath sounds bilaterally). Absent: respiratory distress, wheezes - Cardiovascular Cardiovascular exam: Present: regular rate, normal rhythm, normal heart sounds - Abdominal Exam Abdominal exam: Present: soft, Non-Tender. Absent: distention, guarding, rebound - Extremities Exam Extremities exam: Present: normal inspection, full ROM - Neurological Exam Neurological exam: Present: alert, oriented X3 - Skin Skin exam: Present: warm, dry Course Course Narrative: 67-year-old male with known small cell carcinoma of the lung presenting to the emergency department for decreased appetite and increased weakness. Patient was seen in oncology today and transferred here for further workup. Basic lab work including CBC and CMP completed in triage. Shows hyponatremia. We will order a digoxin level along with a TSH, troponin and EKG. Disposition most likely will be admission but pending these results. Patient is alert and oriented 3 in the room and stable vital signs. Physical exam showed a dehydrated patient but otherwise within normal limits. We will also provide him with a 1 L fluid bolus. Patient agrees with this plan. Disposition pending results - Reevaluation(s) Reevaluation #1: Laboratory analysis shows hyponatremia and ketones in the patient's urine. Due to patient's failure to thrive at home we will admit the patient at this time. I spoke with the accepting physician Dr. Workman who agrees to accept the patient. The patient is alert and oriented 3 in the room with stable vital signs this time. He agrees with this plan. Vital Signs Temperature 97.3 F L 01/04/18 12:25 Pulse Rate 80 01/04/18 12:25 Respiratory Rate 20 01/04/18 12:25 Blood Pressure 103/71 01/04/18 12:25 O2 Sat by Pulse Oximetry 99 01/04/18 12:25 Temperature 97.3 F L 01/04/18 12:25 Pulse Rate 73 01/04/18 16:40 Respiratory Rate 18 01/04/18 16:40 Blood Pressure 128/81 01/04/18 16:40 O2 Sat by Pulse Oximetry 100 01/04/18 16:40 Oxygen Delivery Oxygen Delivery Room Air Medical Decision Making - Medical Records Medical records reviewed: Yes I reviewed the patient's medical records. - Lab Data Lab results reviewed: Yes I reviewed the patient's lab results. Result diagrams: 01/04/18 13:31 01/04/18 13:31 Lab Results 01/04/18 01/04/18 01/04/18 Range/Units 13:31 13:31 13:38 WBC 10.1 (4.3-11.1) K/mcL RBC 4.33 (4.19-5.50) M/mcL Hgb 13.8 (12.9-16.9) g/dL Hct 39.8 (37.5-50.1) % MCV 91.9 (83.0-100.0) fL MCH 31.9 (28.0-33.3) pg MCHC 34.7 (31.6-35.5) g/dL RDW 11.9 (11.5-14.5) % Plt Count 252 (140-400) K/mcL MPV 10.5 (9.4-12.4) fL Immature Gran % 0.4 (0-4) % Seg Neutrophils % 55.1 % Lymphocytes % 34.5 % Monocytes % 9.3 % Eosinophils % 0.1 % Basophils % 0.6 % Neutrophils # 5.6 (1.6-8.9) K/mcL Lymphocytes # 3.5 (0.6-4.6) K/mcL Monocytes # 0.9 (0.0-1.3) K/mcL Eosinophils # 0.0 (0.0-0.6) K/mcL Basophils # 0.1 (0.0-0.2) K/mcL Sodium 132 L (136-145) mEq/L Potassium 3.4 L (3.5-5.1) mEq/L Chloride 96 L (98-107) mEq/L Carbon Dioxide 23 (23-29) mEq/L BUN 18 (8-23) mg/dL Creatinine 0.87 (0.70-1.30) mg/dL Est GFR ( Amer) > 60 (> 60) Est GFR (Non-Af Amer) > 60 (> 60) BUN/Creatinine Ratio 21 (6-26) Glucose 102 (70-105) mg/dL Calculated Osmolality 276 L (280-300) Calcium 9.9 (8.6-10.3) mg/dL Total Bilirubin 0.5 (0.3-1.0) mg/dL Direct Bilirubin 0.1 (0.0-0.2) mg/dL Indirect Bilirubin 0.4 (0.0-1.2) mg/dL AST 16 (13-39) Units/L ALT 7 (7-52) Units/L Alkaline Phosphatase 74 (34-104) Units/L Troponin I < 0.03 (< 0.04) ng/mL Serum Total Protein 7.3 (6.4-8.9) g/dL Albumin 3.9 (3.5-5.7) g/dL Globulin 3.4 (2.4-3.5) g/dL Albumin/Globulin Ratio 1.1 (1.1-2.2) Lipase 5 L (11-82) Units/L TSH 25.736 H (0.340-5.600) mcIU/mL Urine Color (Yellow) Urine Clarity (Clear) Urine pH (5.0-8.0) pH Units Ur Specific [place] (1.010-1.025) Urine Protein (Neg-Trace) mg/dL Urine Glucose (UA) (Normal) mg/dL Urine Ketones (Negative) mg/dL Urine Blood (Negative) Urine Nitrite (Negative) Urine Bilirubin (Negative) Urine Urobilinogen (Normal) mg/dL Ur Leukocyte Esterase (Negative) Urine Microscopic RBC (0-3) per hpf Urine Microscopic WBC (0-3) per hpf Ur Squamous Epith Cells (None-Few) per lpf Urine Bacteria (None-Few) per hpf Hyaline Casts (None-Few) per lpf Ur Culture Indicated? (NO) Digoxin < 0.3 L (0.8-2.0) ng/mL 01/04/18 Range/Units 15:12 WBC (4.3-11.1) K/mcL RBC (4.19-5.50) M/mcL Hgb (12.9-16.9) g/dL Hct (37.5-50.1) % MCV (83.0-100.0) fL MCH (28.0-33.3) pg MCHC (31.6-35.5) g/dL RDW (11.5-14.5) % Plt Count (140-400) K/mcL MPV (9.4-12.4) fL Immature Gran % (0-4) % Seg Neutrophils % % Lymphocytes % % Monocytes % % Eosinophils % % Basophils % % Neutrophils # (1.6-8.9) K/mcL Lymphocytes # (0.6-4.6) K/mcL Monocytes # (0.0-1.3) K/mcL Eosinophils # (0.0-0.6) K/mcL Basophils # (0.0-0.2) K/mcL Sodium (136-145) mEq/L Potassium (3.5-5.1) mEq/L Chloride (98-107) mEq/L Carbon Dioxide (23-29) mEq/L BUN (8-23) mg/dL Creatinine (0.70-1.30) mg/dL Est GFR ( Amer) (> 60) Est GFR (Non-Af Amer) (> 60) BUN/Creatinine Ratio (6-26) Glucose (70-105) mg/dL Calculated Osmolality (280-300) Calcium (8.6-10.3) mg/dL Total Bilirubin (0.3-1.0) mg/dL Direct Bilirubin (0.0-0.2) mg/dL Indirect Bilirubin (0.0-1.2) mg/dL AST (13-39) Units/L ALT (7-52) Units/L Alkaline Phosphatase (34-104) Units/L Troponin I (< 0.04) ng/mL Serum Total Protein (6.4-8.9) g/dL Albumin (3.5-5.7) g/dL Globulin (2.4-3.5) g/dL Albumin/Globulin Ratio (1.1-2.2) Lipase (11-82) Units/L TSH (0.340-5.600) mcIU/mL Urine Color Yellow (Yellow) Urine Clarity Clear (Clear) Urine pH 6.0 (5.0-8.0) pH Units Ur Specific [place] 1.026 H (1.010-1.025) Urine Protein 30 H (Neg-Trace) mg/dL Urine Glucose (UA) Normal (Normal) mg/dL Urine Ketones 15 H (Negative) mg/dL Urine Blood Negative (Negative) Urine Nitrite Negative (Negative) Urine Bilirubin Small H (Negative) Urine Urobilinogen Normal (Normal) mg/dL Ur Leukocyte Esterase Negative (Negative) Urine Microscopic RBC 5-15 H (0-3) per hpf Urine Microscopic WBC 5-15 H (0-3) per hpf Ur Squamous Epith Cells Moderate H (None-Few) per lpf Urine Bacteria None Seen (None-Few) per hpf Hyaline Casts None Seen (None-Few) per lpf Ur Culture Indicated? NO (NO) Digoxin (0.8-2.0) ng/mL - Radiology Data Radiology results reviewed: Yes I reviewed the patient's radiology results. - EKG Data EKG #1 EKG results narrative: Sinus rhythm. 74 bpm. [place] interval 200, QRS 90, QTC 427. No signs of acute ST segment elevation or ischemia. Compared to previous EKG completed on 2016. Previous EKG showed atrial fibrillation but otherwise no change. Attestation Statement - Attestation Attestation: I examined this patient and my medical decision-making was reviewed with the Resident Physician, Dr. Madsen. I agree with the documented findings, disposition and treatment plan as described except to the extent set forth below. Patient is a 67-year-old male who was sent from the oncologist office today for generalized weakness, decreased by mouth intake, concern for dehydration. Patient has a history of small cell cancer with metastases and adrenal glands and experiences chronic back pain who was being seen by his oncologist today in the office and due to his worsening symptoms at home and recommended evaluation in the ED and admission. Patient denies any chest pain pressure or heaviness, no palpitations, no recent fevers or chills, no URI symptoms cough or sore throat, no vomiting or diarrhea or reported fluid losses by not eating due to loss of appetite. Patient's physical exam findings as documented. Vital signs are stable. ECG with was normal sinus with no evidence of ischemia. Patient's labs showed ketonuria but renal function is stable. Remainder of labs are unremarkable. Patient will be admitted for further evaluation and management case was discussed with the hospitalist.
[2018-01-04 15:59] LABS: Thyroid Stimulating Hormone 25.736 mcIU/mL (0.340-5.600)
[2018-01-04 16:50] LABS: Digoxin < 0.3 ng/mL (0.8-2.0)
[2018-01-04] MEDS ORDERED: *HR* FentaNYL (PF) 100 MCG/2 ML VIAL ONE (18:22)
[2018-01-04] MEDS ORDERED: *HR* Midazolam HCl 2 MG/2 ML VIAL ONE (18:22)
[2018-01-04] MEDS ORDERED: *HR* Promethazine 25 MG/ML VIAL IVP PRN (20:20)
[2018-01-04] MEDS ORDERED: Ondansetron 4 MG/2 ML VIAL IVP PRN (20:20)
[2018-01-04] MEDS ORDERED: Magic Mouthwash 10 ML UD Cup PO PRN (20:22)
[2018-01-04] MEDS ORDERED: *HR* LORazepam 1 MG TABLET PO PRN (20:22)
[2018-01-04] MEDS ORDERED: NON-FORMULARY MEDICATION 1 EACH EACH (Oxygen [Oxygen] 2 L) NS SCH (20:30)
[2018-01-04] MEDS ORDERED: *HR* FentaNYL PATCH 25 MCG PATCH TD SCH (20:30)
[2018-01-04] MEDS ORDERED: methIMAzole 5 MG TABLET PO SCH (21:00)
[2018-01-04] MEDS: 0.9 % Sodium Chloride 1,000 ML IVC SCH (22:37)
--- NOTE | 2018-01-04 22:58 | Internal Med History&Physical ---
Date of Encounter: 01/04/18 Time of Encounter: 21:00 Assessment and Plan (1) Dehydration Current visit: Yes Status: Acute Will place the pt into Med Surg for observation His dehydration might be multi factorial..mostly due to current immunotherapy and thyroid problems too will check pre albumin level in AM IV hydration continue symptomatic and supportive care Will consult Heme Onc in AM to address about his immunotherapy meds to be changed (2) Hypothyroidism Current visit: No Status: Acute He does have hyperthyroidism in the past , he was started on Methiazone by Heme Onc however his TSH have been elevated since 08/09 today TSH @ 25.7 Also noticed he is Levothyroixine + Tapazole at home Will d/c Tapazole now check T3 and T4 level in AM Qualifiers: Qualified Code(s): E03.9 - Hypothyroidism, unspecified (3) Weakness Current visit: Yes Status: Acute PT / OT eval (4) Hyponatremia Current visit: Yes Status: Chronic Mild hyponatremia due to dehydration on IVF (5) Small cell lung cancer Current visit: Yes Status: Chronic consult Heme Onc in AM Qualifiers: Laterality: unspecified laterality Qualified Code(s): C34.90 - Malignant neoplasm of unspecified part of unspecified bronchus or lung (6) CAD (coronary artery disease) Current visit: No Status: Chronic resumed home meds Qualifiers: Coronary Disease-Associated Artery/Lesion type: redding artery [place] vs. transplanted heart: redding heart Associated angina: without angina Qualified Code(s): I25.10 - Atherosclerotic heart disease of redding coronary artery without angina pectoris (7) COPD (chronic obstructive pulmonary disease) Current visit: No Status: Chronic not in exacerbation resumed home regimen on O2 at [facility] Qualifiers: COPD type: chronic bronchitis Chronic bronchitis type: unspecified Qualified Code(s): J42 - Unspecified chronic bronchitis (8) Diastolic CHF Current visit: No Status: Chronic Qualifiers: Qualified Code(s): I50.32 - Chronic diastolic (congestive) heart failure (9) Dyslipidemia Current visit: No Status: Chronic (10) Hypertension Current visit: No Status: Chronic Qualifiers: Hypertension type: essential hypertension Qualified Code(s): I10 - Essential (primary) hypertension (11) Protein-calorie malnutrition, moderate Current visit: Yes Status: Acute check Pre albumin level Consult Inhalation Therapist Internal Medicine - H&P: HPI Chief complaint: Generalized weakness Admitted From: Emergency Dept Plans for Post Hospital Care: Home History of present illness: Mr. Farias is a 67 year old male with known PMH of arthritis, Chronic atrial fibrillation, Small cell Lung cancer,, bilateral adrenal metastases COPD on 2 lit nocturnal home O2 dependent, coronary artery disease, hyperlipidemia, hypertension, osteoporosis, and hyperthyroidism pt who is currently on active immunotherapy for lung cancer presented to ER from Heme Onc office with generalized weakness and worsening low back pain. He lost a significant amount of weight. Patient denies any nausea, vomiting or diarrhea. He does state he just has no urge to eat. Past Med Surg Social Fam HX - Past Medical History Medical history: arthritis, asthma, atrial fibrillation, cancer, COPD, coronary artery disease, hyperlipidemia, hypertension, osteoporosis, thyroid disease Psychiatric history: anxiety - Past Surgical History Surgical History: angioplasty/stent, other (Lung biopsy, squamous cell cancer) - Social History Smoking Status: Current every day smoker Smokeless Tobacco Status: Yes Alcohol use: none Drug use: none - Family History Father Living Status: Hx Family Cardiac Disorders: Yes Internal Medicine - H&P: Meds Budesonide/Formoterol 160/4.5 [Symbicort 160/4.5] 1 puff IH BIDR 12/29/17 [ History] Citalopram [CeleXA] 40 mg PO DAILY 12/29/17 [History] Digoxin [Lanoxin] 0.25 mg PO DAILY 12/29/17 [History] Diltiazem CD (24hr) [Cardizem CD] 180 mg PO DAILY 12/29/17 [History] Furosemide [Lasix] 20 mg PO DAILY 12/29/17 [History] LORazepam [Ativan] 1 mg PO QID PRN 12/29/17 [History] Levothyroxine [Synthroid] 100 mcg PO QAM 12/29/17 [History] OxyCODONE Immed Rel [Roxicodone 15 MG] 15 mg PO Q6HR PRN 12/29/17 [History] Oxygen 2 l NS AD 12/29/17 [History] methIMAzole [Tapazole] 5 mg PO BID 12/29/17 [History] Albuterol Sulfate [Albuterol Inhaler] 2 puff IH Q4H PRN 01/04/18 [History] Aspirin Enteric Coated [Aspirin EC] 81 mg PO DAILY 01/04/18 [History] FentaNYL PATCH [Duragesic] 25 mcg TD Q72H 01/04/18 [History] Guaifenesin [Mucinex] 1,200 mg PO BID 01/04/18 [History] Lidocaine/Prilocaine CREAM [Emla] 1 appl TP AD 01/04/18 [History] Magic Mouthwash [Magic Mouthwash BLM] 10 ml PO QID PRN 01/04/18 [History] Metoprolol [Lopressor] 25 mg PO BID 01/04/18 [History] Omeprazole [PriLOSEC] 20 mg PO DAILY 01/04/18 [History] Ondansetron [Zofran] 8 mg PO Q8H PRN 01/04/18 [History] Pravastatin Sodium [Pravachol] 40 mg PO HS 01/04/18 [History] Prochlorperazine Maleate [Compazine] 10 mg PO Q6H PRN 01/04/18 [History] Rivaroxaban [Xarelto] 20 mg PO DAILY 01/04/18 [History] 3 Allergy/AdvReac Type Severity Reaction Status Date / Time No Known Allergies Allergy Verified 01/04/18 12:25 All Systems PM: A 10-system review of systems was performed and is negative for pertinent findings except as documented above in the HPI. Review of systems: All the systems are reviewed everything is benign except the systems and symptoms I mentioned in the history of present illness - Constitutional Vitals: Temp Pulse Resp BP Pulse Ox 98.0 F 83 15 124/83 96 01/04/18 20:33 01/04/18 20:33 01/04/18 20:33 01/04/18 20:33 01/04/18 20:33 General appearance: Present: cooperative, A&O X 3, answers questions appropriately Exam: Looks lethargic and weak - Head Head exam: Present: atraumatic, normal inspection - Neck Neck exam general surgery: Present: supple - Respiratory Respiratory exam: Present: decreased breath sounds. Absent: rales, respiratory distress, rhonchi, wheezes - Cardiovascular Cardiovascular exam: Present: RRR, +S1, +S2. Absent: tachycardia - GI/Abdominal GI/Abdominal exam: Present: normal bowel sounds, soft. Absent: rebound, rigid, tenderness - Extremities Exam Extremities exam: Absent: calf tenderness, pedal edema, tenderness - Back Exam Back exam: Present: paraspinal tenderness. Absent: CVA tenderness (L), CVA tenderness (R) - Neurological Exam Neurological exam: Present: alert, oriented X3. Absent: no focal deficits - Psychiatric Psychiatric exam: Present: normal affect, normal mood - Skin Skin exam: Absent: rash Internal Med - H&P Results - Labs CBC & Chem 7: 01/04/18 13:31 01/04/18 13:31
[2018-01-04] MEDS: Budesonide/Formoterol 160/4.5 MDI IH SCH (23:09)
[2018-01-05] MEDS: *HR* OxyCODONE Immed Rel 15 MG TABLET PO PRN ×2 (00:11→20:32)
[2018-01-05] MEDS: *HR* HYDROcodone/Acet 5/325 mg TABLET PO PRN (04:28)
[2018-01-05 04:50] LABS: Basophils % 0.5 %; Eosinophils % 0.1 %; Hematocrit 33.9 % (37.5-50.1); Immature Granulocytes % 0.2 % (0-4); Lymphocytes # 3.1 K/mcL (0.6-4.6); Mean Corpuscular HGB Conc 35.1 g/dL (31.6-35.5); Mean Corpuscular Volume 91.1 fL (83.0-100.0); Mean Platelet Volume 10.4 fL (9.4-12.4); Monocytes # 0.8 K/mcL (0.0-1.3); Monocytes % 9.4 %; Neutrophils # 4.8 K/mcL (1.6-8.9); Platelet Count 219 K/mcL (140-400); Red Blood Count 3.72 M/mcL (4.19-5.50); Red Cell Distribution Width 11.9 % (11.5-14.5); Segmented Neutrophils % 54.8 %
[2018-01-05 04:51] LABS: Hemoglobin 11.9 g/dL (12.9-16.9)
[2018-01-05 06:00] LABS: Triiodothyronine (T3) Free 3.01 pg/mL (2.50-3.90)
[2018-01-05 06:04] LABS: Alanine Aminotransferase 7 Units/L (7-52); Albumin 3.3 g/dL (3.5-5.7); Albumin/Globulin Ratio 1.1 (1.1-2.2); Alkaline Phosphatase 64 Units/L (34-104); Aspartate Amino Transferase 14 Units/L (13-39); BUN/Creatinine Ratio 21 (6-26); Bilirubin,Total 0.5 mg/dL (0.3-1.0); Blood Urea Nitrogen 16 mg/dL (8-23); Calcium 8.9 mg/dL (8.6-10.3); Carbon Dioxide 23 mEq/L (23-29); Chloride 100 mEq/L (98-107); Glucose 78 mg/dL (70-105); Magnesium 1.5 mg/dL (1.6-2.6); Osmolality,Calculated 276 (280-300); Phosphorous 4.1 mg/dL (2.7-4.5); Potassium 3.4 mEq/L (3.5-5.1); Sodium 133 mEq/L (136-145); Total Protein 6.3 g/dL (6.4-8.9); eGFR For African Americans > 60 (> 60); eGFR For Non-African Americans > 60 (> 60)
[2018-01-05] MEDS: Budesonide/Formoterol 160/4.5 MDI IH SCH ×2 (08:05→21:57)
[2018-01-05] MEDS ORDERED: Magnesium Sulfate 2 GM in D5% in Water 100 ML IVPB ONE (09:11)
[2018-01-05] MEDS: 0.9 % Sodium Chloride 1,000 ML IVC SCH (09:28)
[2018-01-05] MEDS: *HR* Digoxin 0.25 MG TABLET PO SCH (09:28)
[2018-01-05] MEDS: Diltiazem CD (24hr) 180 MG CAPSULE PO SCH (09:28)
[2018-01-05] MEDS: Aspirin Enteric Coated 81 MG Tablet PO SCH (09:29)
[2018-01-05] MEDS: *HR* Rivaroxaban 10 MG TABLET PO SCH (09:29)
--- NOTE | 2018-01-05 15:09 | Oncology Inp Consult Note ---
<ArmandMarlena L - Last Filed: 01/06/18 12:52> Date of Encounter: 01/06/18 Time of Encounter: 15:09 Assessment and Plan (1) Failure to thrive Status: Acute Assessment and plan: Reports increased weakness, fatigue, decreased appetite with little to no oral intake. Continue symptomatic and supportive care, IVF rehydration and PT/OT. LD following patient, will continue with following outpatient oncology LD Hypothyroidism may be causative factor in symptoms which may be exacerbated secondary to immune mediated side effects seen with immunotherapy treatments. Qualifiers: Failure to thrive age range: in adult Qualified Code(s): R62.7 - Adult failure to thrive (2) Lung cancer Status: Chronic Assessment and plan: Currently on nivolumab 240 mg IV every 2 weeks since 07/09/2017, plan to treat indefinitely until intolerance or further progression. He will continue nivolumab treatments following resolution of his acute issues and once medically stable His disease is overall stable/ mild improvement by recent CT chest abdomen and pelvis with contrast 11/24/2017. Last nivolumab treatment on 12/14/2017, most recent cycle was held due to issues leading to admission. CT abd/pelvis ordered for abd pain, lower back pain. Most recent CT abd/pelvis on 11/24/17 did show stable 5.2 cm infarenal aortic aneurysm and diffuse rectal wall thickening/perirectal stranding. Please refer to Dr. Lieberman's, treating oncologist, attestation below for further details Qualifiers: Laterality: left Lung location: overlapping sites Qualified Code(s): C34.82 - Malignant neoplasm of overlapping sites of left bronchus and lung - Data of Consult Patient: known to practice within the last 3 years Consult date: 01/05/18 Requesting Physician: José Luis Mcdonald MD Primary Care Provider: Shabana Fulton CNP - Consult Narrative Reason for consult: Small call lung cancer, stage IV History of present illness: Mr. 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 Treatment intent palliative. Completed combination ipilimumab nivolumab 4 cycles. Currently on nivolumab 240 mg IV every 2 weeks since 07/09/2017, plan to treat indefinitely until intolerance or further progression.His disease is overall stable/ mild improvement by recent CT chest abdomen and pelvis with contrast 12/2017. Last nivolumab treatment on 12/14/2017, most recent cycle was held. He has had recent issues with increased weakness, dehydration, weight loss, essentially failure to thrive. He was sent from the cancer center to [facility] ED for further workup and admitted for dehydration, weakness, hyponatremia and hypothyroidism. Past Med Surg Social Fam HX - Past Medical History Medical history: arthritis, asthma, atrial fibrillation, cancer, COPD, coronary artery disease, hyperlipidemia, hypertension, osteoporosis, thyroid disease Psychiatric history: anxiety - Past Surgical History Surgical History: angioplasty/stent, other (Lung biopsy, squamous cell cancer) - Social History Smoking Status: Current every day smoker Smokeless Tobacco Status: Yes Alcohol use: none Drug use: none - Family History Father Living Status: Hx Family Cardiac Disorders: Yes Medications and Allergies Budesonide/Formoterol 160/4.5 [Symbicort 160/4.5] 1 puff IH BIDR 12/29/17 [ History] Citalopram [CeleXA] 40 mg PO DAILY 12/29/17 [History] Digoxin [Lanoxin] 0.25 mg PO DAILY 12/29/17 [History] Diltiazem CD (24hr) [Cardizem CD] 180 mg PO DAILY 12/29/17 [History] Furosemide [Lasix] 20 mg PO DAILY 12/29/17 [History] LORazepam [Ativan] 1 mg PO QID PRN 12/29/17 [History] Levothyroxine [Synthroid] 100 mcg PO QAM 12/29/17 [History] OxyCODONE Immed Rel [Roxicodone 15 MG] 15 mg PO Q6HR PRN 12/29/17 [History] Oxygen 2 l NS AD 12/29/17 [History] methIMAzole [Tapazole] 5 mg PO BID 12/29/17 [History] Albuterol Sulfate [Albuterol Inhaler] 2 puff IH Q4H PRN 01/04/18 [History] Aspirin Enteric Coated [Aspirin EC] 81 mg PO DAILY 01/04/18 [History] Guaifenesin [Mucinex] 1,200 mg PO BID 01/04/18 [History] Lidocaine/Prilocaine CREAM [Emla] 1 appl TP AD 01/04/18 [History] Magic Mouthwash [Magic Mouthwash BLM] 10 ml PO QID PRN 01/04/18 [History] Metoprolol [Lopressor] 25 mg PO BID 01/04/18 [History] Omeprazole [PriLOSEC] 20 mg PO DAILY 01/04/18 [History] Ondansetron [Zofran] 8 mg PO Q8H PRN 01/04/18 [History] Pravastatin Sodium [Pravachol] 40 mg PO HS 01/04/18 [History] Prochlorperazine Maleate [Compazine] 10 mg PO Q6H PRN 01/04/18 [History] Rivaroxaban [Xarelto] 20 mg PO DAILY 01/04/18 [History] 3 Allergy/AdvReac Type Severity Reaction Status Date / Time No Known Allergies Allergy Verified 01/04/18 12:25 Review of systems: difficulty in obtaining ROS due to drowsiness/mental status, no family at bedside Constitutional: Present: anorexia, fatigue, weakness. Absent: chills, fever(s) , night sweats Eyes: Absent: change in vision Nose, mouth and throat: Absent: mouth lesions Cardiovascular: Absent: chest pain, irregular heart rhythm, palpitations Respiratory: Absent: cough, hemoptysis Gastrointestinal: Present: abdominal pain. Absent: constipation, diarrhea, hematemesis, hematochezia, melena, nausea, vomiting Additional comments: denies dysuria or hematuria Musculoskeletal: Present: as per HPI, back pain, muscle weakness. Absent: numbness, tingling Integumentary: Absent: wounds Neurological: Present: as per HPI. Absent: focal weakness, syncope Psychiatric: Present: change in appetite Hematologic/Lymphatic: Absent: easy bleeding Oncology - Exam - Constitutional Vitals: Temp Pulse Resp BP Pulse Ox 97.4 F L 80 16 121/75 95 01/05/18 12:04 01/05/18 12:04 01/05/18 12:04 01/05/18 12:04 01/05/18 12:04 General appearance: cooperative, no acute distress, no febrile Exam: drowsy but responds to voice - Head Head exam: Present: atraumatic - Respiratory Respiratory exam: Present: decreased breath sounds, CTAB - Cardiovascular Cardiovascular exam: Present: RRR, +S1, +S2 - GI/Abdominal GI/Abdominal exam: Present: normal bowel sounds, soft, tenderness. Absent: guarding, rebound - Extremities Exam Extremities exam: Present: normal inspection. Absent: calf tenderness Additional comments: muscle strength 2/5 bilaterally - Neurological Exam Neurological exam: Present: alert, oriented X3, no focal deficits, strengths equal and symetr throughout Additional comments: as above, drowsy, able to follow commands - Psychiatric Psychiatric exam: Present: normal affect, normal mood - Skin Skin exam: Present: normal color, warm Oncology - Results Labs: Short CBC 01/05/18 Range/Units 04:25 WBC 8.7 (4.3-11.1) K/mcL Hgb 11.9 L D (12.9-16.9) g/dL Hct 33.9 L (37.5-50.1) % Plt Count 219 (140-400) K/mcL Neutrophils # 4.8 (1.6-8.9) K/mcL BMP 01/05/18 04:25 Sodium 133 L Potassium 3.4 L Chloride 100 Carbon Dioxide 23 BUN 16 Creatinine 0.77 Glucose 78 Calcium 8.9 Liver Function 01/05/18 Range/Units 04:25 Total Bilirubin 0.5 (0.3-1.0) mg/dL AST 14 (13-39) Units/L ALT 7 (7-52) Units/L Alkaline Phosphatase 64 (34-104) Units/L Albumin 3.3 L (3.5-5.7) g/dL Consult Discharge Plan - Plan Referrals: Shabana Fulton CNP [Primary Care Provider] - ( ) <Archie Lieberman S - Last Filed: 01/06/18 17:08> Date of Encounter: 01/06/18 - Data of Consult Requesting Physician: José Luis Mcdonald MD Primary Care Provider: Shabana Fulton CNP - Consult Narrative History of present illness: Mr. Farias is a 67 year old male Oncology - Exam - Constitutional Vitals: Temp Pulse Resp BP Pulse Ox 97.8 F 62 16 92/59 96 01/06/18 14:23 01/06/18 14:23 01/06/18 14:23 01/06/18 14:23 01/06/18 14:23 - Attending Attestation 1. Stage IV small cell lung cancer He had a good response to immunotherapy and currently on Demetria maintenance 240 mg IV every 2 weeks area given the aggressive nature of his cancer and is good response to immunotherapy the riggs is to continue nivolumab indefinitely Complications are usually less with immunotherapy. I doubt that current presentation represents complication from nivolumab 2. History of failure to thrive diffuse body pain mostly back pain and some abdominal discomfort. Analysis negative 01/04/[address] abdomen and pelvis with IV contrast may BE helpful CBC CMP unremarkable. Hemoglobin mildly dropped to 11.9 could be from hydration He felt better after IV fluids
--- NOTE | 2018-01-05 22:57 | Internal Med Progress Note ---
Date of Encounter: 01/06/18 Time of Encounter: 13:56 - Assessment and plan (1) Dehydration Current Visit: Yes Status: Acute Assessment and plan: Patient did well with IV fluid, BP was in lower normal range today and will give additional IV fluid. (2) Failure to thrive Current Visit: Yes Status: Acute Qualifiers: Failure to thrive age range: in adult Qualified Code(s): R62.7 - Adult failure to thrive (3) Hypothyroidism Current Visit: No Status: Acute Qualifiers: Hypothyroidism type: unspecified Qualified Code(s): E03.9 - Hypothyroidism , unspecified (4) Protein-calorie malnutrition, moderate Current Visit: Yes Status: Acute (5) Hyponatremia Current Visit: Yes Status: Chronic (6) Small cell lung cancer Current Visit: Yes Status: Chronic Qualifiers: Laterality: unspecified laterality Qualified Code(s): C34.90 - Malignant neoplasm of unspecified part of unspecified bronchus or lung - Subjective Interval history: No complaints, no acute events. Patient feels well, asks if he can go home today. - Constitutional Vitals: Temp Pulse Resp BP Pulse Ox 97.1 F L 64 15 116/68 95 01/05/18 19:39 01/05/18 19:39 01/05/18 21:58 01/05/18 19:39 01/05/18 21:58 General appearance: Present: cooperative, A&O X 3, answers questions appropriately - Head Head exam: Present: atraumatic, normocephalic - Eye Eye exam: Present: PERRL, conjuntiva pink, sclera anicteric Pupils: Present: PERRL - Neck Neck exam general surgery: Present: supple, trachea midline. Absent: lymphadenopathy - Respiratory Respiratory exam: Present: CTAB. Absent: accessory muscle use, rales, rhonchi, wheezes - Cardiovascular Cardiovascular exam: Present: RRR, +S1, +S2. Absent: diastolic murmur, gallop, rubs, systolic murmur - GI/Abdominal GI/Abdominal exam: Present: normal bowel sounds, soft, no peritoneal signs. Absent: distended, tenderness - Extremities Exam Extremities exam: Present: warm, radial pulses palpable and symmetrical. Absent : calf tenderness, cyanotic, pedal edema - Neurological Exam Neurological exam: Present: CN II-XII intact, oriented X3, no focal deficits. Absent: pronater drift, facial droop, speech deficit - Skin Skin exam: Present: dry, intact Internal Medicine: Result - Labs CBC & Chem 7: 01/05/18 04:25 01/05/18 04:25 Labs: Short CBC 01/05/18 Range/Units 04:25 WBC 8.7 (4.3-11.1) K/mcL Hgb 11.9 L D (12.9-16.9) g/dL Hct 33.9 L (37.5-50.1) % Plt Count 219 (140-400) K/mcL Neutrophils # 4.8 (1.6-8.9) K/mcL BMP 01/05/18 04:25 Sodium 133 L Potassium 3.4 L Chloride 100 Carbon Dioxide 23 BUN 16 Creatinine 0.77 Glucose 78 Calcium 8.9 Liver Function 01/05/18 Range/Units 04:25 Total Bilirubin 0.5 (0.3-1.0) mg/dL AST 14 (13-39) Units/L ALT 7 (7-52) Units/L Alkaline Phosphatase 64 (34-104) Units/L Albumin 3.3 L (3.5-5.7) g/dL Consult Discharge Plan - Plan Referrals: Shabana Fulton, VERTICAL BORER [Primary Care Provider] - ( )
[2018-01-06] MEDS: *HR* HYDROcodone/Acet 5/325 mg TABLET PO PRN ×2 (05:02→10:55)
[2018-01-06] MEDS: Budesonide/Formoterol 160/4.5 MDI IH SCH ×2 (08:14→21:17)
[2018-01-06] MEDS: Aspirin Enteric Coated 81 MG Tablet PO SCH (10:15)
[2018-01-06] MEDS: Diltiazem CD (24hr) 180 MG CAPSULE PO SCH (10:15)
[2018-01-06] MEDS: *HR* Digoxin 0.25 MG TABLET PO SCH (10:15)
[2018-01-06] MEDS: *HR* Rivaroxaban 10 MG TABLET PO SCH (10:15)
[2018-01-06] MEDS: Naloxone 0.4 MG/ML INJ IVP PRN ×4 (14:00→18:56)
[2018-01-06] MEDS ORDERED: 0.9 % Sodium Chloride 1,000 ML ONE (19:59)
[2018-01-06] MEDS ORDERED: 0.9 % Sodium Chloride 1,000 ML IVC SCH (20:00)
[2018-01-06] MEDS ORDERED: Vancomycin 1,500 MG in D5% in Water 250 ML IVPB SCH (21:00)
--- NOTE | 2018-01-06 21:18 | Internal Med Progress Note ---
Date of Encounter: 01/06/18 Time of Encounter: 18:18 - Assessment and plan (1) Dehydration Current Visit: Yes Status: Acute Assessment and plan: Patient did well with IV fluid, BP was in lower normal range today and will give additional IV fluid. (2) Acute encephalopathy Current Visit: Yes Status: Acute Assessment and plan: Due to acute change in alertness, I took preventive measures of applying oxygen to patient, administering Narcan as patient does take opiates, and elevating head of bed to promote better respirations. After injecting 0.4 mg IV Narcan x2 , patient stated he is feeling more alert. In reviewing his medication list; he is listed as taking: Fentanyl patch 25 mcg Q72 hr, Roxicodone 15 mg Q6H prn. Fentanyl patch was continued withovernight he received one dose of prn Roxicodone 15 mg. I reviewed home medication list with pharmacist on floor and with the patient' s at bedside. Patient has not taken Fentanyl patch in a while. And also informs me that she does not give Roxicodone 15 mg tablet at a time as prescribed. She segments one 15 mg tablet into 4 pieces and gives throughout the day instead. Suspect patient sedation is from excess opitae dosages. We contacted med rec department, and they noted these home medications were restarted per a list given to them by family. Patient was alert after administration of Narcan, Telemetry monitoring was applied, IV fluids given as patient was hypotensive. Fentanyl patch removed, narcan ordered continued as prn. Patient currently drowsy but is better than earlier this morning, maintains airway without compromise. After several hours of monitoring patient has been more alert. Will continue to closely monitor. If patient alertness decreases, he will be transferred to ICU (3) CAD (coronary artery disease) Current Visit: No Status: Chronic Qualifiers: Coronary Disease-Associated Artery/Lesion type: [place] artery [place] vs. transplanted heart: [place] heart Associated angina: without angina Qualified Code(s): I25.10 - Atherosclerotic heart disease of [place] coronary artery without angina pectoris (4) COPD (chronic obstructive pulmonary disease) Current Visit: No Status: Chronic Qualifiers: COPD type: chronic bronchitis Chronic bronchitis type: unspecified Qualified Code(s): J42 - Unspecified chronic bronchitis (5) Diastolic CHF Current Visit: No Status: Chronic Qualifiers: Qualified Code(s): I50.32 - Chronic diastolic (congestive) heart failure (6) Hyponatremia Current Visit: Yes Status: Chronic (7) Hypothyroidism Current Visit: No Status: Acute Qualifiers: Hypothyroidism type: unspecified Qualified Code(s): E03.9 - Hypothyroidism , unspecified (8) Protein-calorie malnutrition, moderate Current Visit: Yes Status: Acute (9) Small cell lung cancer Current Visit: Yes Status: Chronic Qualifiers: Laterality: unspecified laterality Qualified Code(s): C34.90 - Malignant neoplasm of unspecified part of unspecified bronchus or lung - Subjective Interval history: Patient was noted by nurse today to be somnolent and at times lethargic, waxing and waning in alertness. I evaluated patient and did notice him to be doing so. - Constitutional Vitals: Temp Pulse Resp BP Pulse Ox 97.8 F 62 16 92/59 96 01/06/18 14:23 01/06/18 14:23 01/06/18 14:23 01/06/18 14:23 01/06/18 14:23 General appearance: Present: cooperative, A&O X 3, answers questions appropriately Internal Medicine: Result - Labs CBC & Chem 7: 01/05/18 04:25 01/05/18 04:25 Consult Discharge Plan - Plan Referrals: Shabana Fulton, ELECTRIC PLATER [Primary Care Provider] - ( )
[2018-01-07] MEDS: Budesonide/Formoterol 160/4.5 MDI IH SCH ×2 (07:56→22:22)
[2018-01-07] MEDS ORDERED: Levofloxacin 750 MG/150 ML 750 MG/150 ML BAG IVPB SCH (09:00)
[2018-01-07] MEDS: *HR* Rivaroxaban 10 MG TABLET PO SCH (10:01)
[2018-01-07] MEDS: Aspirin Enteric Coated 81 MG Tablet PO SCH (10:02)
[2018-01-07] MEDS: Diltiazem CD (24hr) 180 MG CAPSULE PO SCH (10:02)
[2018-01-07 11:16] LABS: Basophils % 0.3 %; Hematocrit 30.7 % (37.5-50.1); Hemoglobin 10.7 g/dL (12.9-16.9); Immature Granulocytes % 0.3 % (0-4); Lymphocytes # 1.4 K/mcL (0.6-4.6); Lymphocytes % 21.1 %; Mean Corpuscular HGB Conc 34.9 g/dL (31.6-35.5); Mean Corpuscular Hemoglobin 32.6 pg (28.0-33.3); Mean Corpuscular Volume 93.6 fL (83.0-100.0); Mean Platelet Volume 10.9 fL (9.4-12.4); Monocytes # 0.6 K/mcL (0.0-1.3); Monocytes % 9.4 %; Neutrophils # 4.6 K/mcL (1.6-8.9); Platelet Count 186 K/mcL (140-400); Red Blood Count 3.28 M/mcL (4.19-5.50); Red Cell Distribution Width 12.1 % (11.5-14.5); Segmented Neutrophils % 68.9 %
[2018-01-07 11:43] LABS: BUN/Creatinine Ratio 12 (6-26); Blood Urea Nitrogen 9 mg/dL (8-23); Calcium 8.9 mg/dL (8.6-10.3); Carbon Dioxide 25 mEq/L (23-29); Chloride 102 mEq/L (98-107); Glucose 100 mg/dL (70-105); Osmolality,Calculated 275 (280-300); Potassium 3.3 mEq/L (3.5-5.1); Sodium 133 mEq/L (136-145); eGFR For African Americans > 60 (> 60); eGFR For Non-African Americans > 60 (> 60)
[2018-01-07] MEDS: *HR* Digoxin 0.25 MG TABLET PO SCH (16:36)
[2018-01-07] MEDS: Acetaminophen 325 MG TABLET PO PRN (16:49)
--- NOTE | 2018-01-07 18:41 | Oncology Inp Progress Note ---
Date of Encounter: 01/09/18 Time of Encounter: 18:35 (1) Lung cancer Current Visit: No Status: Chronic Assessment and plan: Metastatic small cell lung cancer. He had excellent response to combination immunotherapy. Currently on maintenance nivolumab 240 mg IV every 2 weeks Admitted with low back pain/generalized abdominal pain. Also failure to thrive. He is clinically feeling better now with conservative management and fluids CT abdomen and pelvis on 01/07/2018 showed no acute bone lesions. Abdominal aortic aneurysm is enlarged to 5.8 cm. May consult vascular surgery as noted patient Stable bilateral calcified adrenal nodules We will resume immunotherapy with nivolumab after discharge Qualifiers: Laterality: left Lung location: overlapping sites Qualified Code(s): C34.82 - Malignant neoplasm of overlapping sites of left bronchus and lung Oncology: Subj Interval history: Clinically feeling better. Low back pain is improved. Energy level has improved. He wants to go home - Constitutional Vitals: Vital Signs Temp Pulse Resp BP Pulse Ox 01/07/18 14:00 97.4 F L 72 18 99/68 96 01/07/18 10:54 97.5 F L 75 16 94/49 97 01/07/18 07:56 14 96 01/07/18 06:53 97.8 F 64 14 126/73 100 01/07/18 00:02 97.5 F L 75 17 159/79 95 01/06/18 21:29 97.6 F 63 17 115/69 100 01/06/18 21:18 18 98 Intake and Output 01/07/18 01/07/18 01/07/18 07:59 15:59 23:59 Intake Total 350 / 350 360 / 360 Output Total 200 / 200 725 / 725 200 / 200 Balance 150 / 150 -365 / -365 -200 / -200 Intake: IV Fluids 350 / 350 Zosyn 3.375 GM In 0.9 % Sodium 100 / 100 Chloride 100 ML @ 25 mls/hr IVPB Q8HR [facility] Rx#:[id number] Vancocin 1,500 MG In 0.9 % 250 / 250 Sodium Chloride 250 ML @ 166.67 mls/hr IVPB Q12H [facility] Rx#: [id number] Oral 0 / 0 360 / 360 Output: Urine 0 / 0 725 / 725 200 / 200 Catheter 200 / 200 Other: Meal Lunch Percent of Meal Consumed 0% Exam: heart S1, S2 heard regular rate and lungs clear both sides abdomen soft not tender INDUSTRIAL PLANT CUSTODIAN sleepy but arousable. No focal deficits Oncology: Obj Data - Labs CBC & Chem 7: 01/09/18 03:30 01/09/18 03:30 Labs: Laboratory Results - last 24 hr 01/07/18 01/07/18 10:40 10:40 WBC 6.7 RBC 3.28 L Hgb 10.7 L Hct 30.7 L MCV 93.6 MCH 32.6 MCHC 34.9 RDW 12.1 Plt Count 186 MPV 10.9 Immature Gran % 0.3 Seg Neutrophils % 68.9 Lymphocytes % 21.1 Monocytes % 9.4 Eosinophils % 0.0 Basophils % 0.3 Neutrophils # 4.6 Lymphocytes # 1.4 Monocytes # 0.6 Eosinophils # 0.0 Basophils # 0.0 Sodium 133 L Potassium 3.3 L Chloride 102 Carbon Dioxide 25 BUN 9 Creatinine 0.77 Est GFR ( Amer) > 60 Est GFR (Non-Af Amer) > 60 BUN/Creatinine Ratio 12 Glucose 100 Calculated Osmolality 275 L Calcium 8.9 - Impressions Impressions Abdomen/Pelvis CT 01/07/18 08:30 IMPRESSION: 1. New trace right and slight progression of a trace left pleural effusion. 2. Nonspecific new patchy ground-glass densities of the left lung base. An acute infectious/inflammatory process cannot be excluded. 3. Infrarenal 5.8 cm abdominal aortic aneurysm which has progressed since the prior exam. It was previously measured at 5.2 cm. No acute hemorrhage. 4. Stable bilateral adrenal nodules and calcifications. Interval resolution of rectal wall thickening. D/ / 01/07/2018 10:01:04 Ramone Byrd MD / kathi Interpreting Provider: Ramone Byrd MD Consult Discharge Plan - Plan Referrals: Shabana Fulton, SPECIAL EDUCATION SCIENCE TEACHER [Primary Care Provider] - ( )
--- NOTE | 2018-01-07 20:26 | Internal Med Progress Note ---
Date of Encounter: 01/07/18 Time of Encounter: 20:24 - Assessment and plan (1) Dehydration Current Visit: Yes Status: Acute Assessment and plan: Continue IVF Possible discharge tomorrow: - Will contact Vascular Surgery for recommendations on increased in size 5.8 cm abdominal aortic aneurysm - CT chest showed nonspecific new patchy ground glass densities of left lung base, - Continue Levaquin upon discharge (2) Acute encephalopathy Current Visit: Yes Status: Resolved Assessment and plan: Was from high dose of opiates, resolved. Patient may resume Roxicodone at lower dose 5 mg Q6H for now and titrate here. (3) CAD (coronary artery disease) Current Visit: No Status: Chronic Qualifiers: Coronary Disease-Associated Artery/Lesion type: [place] artery [place] vs. transplanted heart: [place] heart Associated angina: without angina Qualified Code(s): I25.10 - Atherosclerotic heart disease of [place] coronary artery without angina pectoris (4) COPD (chronic obstructive pulmonary disease) Current Visit: No Status: Chronic Qualifiers: COPD type: chronic bronchitis Chronic bronchitis type: unspecified Qualified Code(s): J42 - Unspecified chronic bronchitis (5) Protein-calorie malnutrition, moderate Current Visit: Yes Status: Acute Assessment and plan: Nutrition consulted Magic up TID (6) Small cell lung cancer Current Visit: Yes Status: Chronic Qualifiers: Laterality: unspecified laterality Qualified Code(s): C34.90 - Malignant neoplasm of unspecified part of unspecified bronchus or lung (7) Abdominal aortic aneurysm (AAA) greater than 5.5 cm in diameter in male Current Visit: Yes Status: Acute Assessment and plan: I will discuss with Vascular Surgery tomorrow about findings. Currently patient is asymptomatic. (8) Atrial fibrillation Current Visit: Yes Status: Acute Assessment and plan: On Xarelto and metoprolol Qualifiers: Atrial fibrillation type: unspecified Qualified Code(s): I48.91 - Unspecified atrial fibrillation (9) Hypothyroidism Current Visit: No Status: Acute Qualifiers: Hypothyroidism type: unspecified Qualified Code(s): E03.9 - Hypothyroidism , unspecified (10) Heart failure Current Visit: Yes Status: Acute Qualifiers: Heart failure type: diastolic Heart failure chronicity: chronic Qualified Code(s): I50.32 - Chronic diastolic (congestive) heart failure - Subjective Interval history: Patient was noted by nurse today to be somnolent and at times lethargic, waxing and waning in alertness. I evaluated patient and did notice him to be doing so. - Constitutional Vitals: Temp Pulse Resp BP Pulse Ox 97.3 F L 71 18 131/64 94 01/07/18 19:13 01/07/18 19:13 01/07/18 19:13 01/07/18 19:13 01/07/18 19:13 General appearance: Present: cooperative, A&O X 3, answers questions appropriately Internal Medicine: Result - Labs CBC & Chem 7: 01/07/18 10:40 01/07/18 10:40 Labs: Short CBC 01/07/18 Range/Units 10:40 WBC 6.7 (4.3-11.1) K/mcL Hgb 10.7 L (12.9-16.9) g/dL Hct 30.7 L (37.5-50.1) % Plt Count 186 (140-400) K/mcL Neutrophils # 4.6 (1.6-8.9) K/mcL BMP 01/07/18 10:40 Sodium 133 L Potassium 3.3 L Chloride 102 Carbon Dioxide 25 BUN 9 Creatinine 0.77 Glucose 100 Calcium 8.9 - Impressions Impressions Abdomen/Pelvis CT 01/07/18 08:30 IMPRESSION: 1. New trace right and slight progression of a trace left pleural effusion. 2. Nonspecific new patchy ground-glass densities of the left lung base. An acute infectious/inflammatory process cannot be excluded. 3. Infrarenal 5.8 cm abdominal aortic aneurysm which has progressed since the prior exam. It was previously measured at 5.2 cm. No acute hemorrhage. 4. Stable bilateral adrenal nodules and calcifications. Interval resolution of rectal wall thickening. D/ / 01/07/2018 10:01:04 Ramone Byrd MD / kathi Interpreting Provider: Ramone Byrd MD Consult Discharge Plan - Plan Referrals: Shabana Fulton, TEXTURING MACHINE FIXER [Primary Care Provider] - ( )
[2018-01-07] MEDS: 0.9 % Sodium Chloride 1,000 ML IVC SCH (22:18)
[2018-01-08] MEDS: *HR* LORazepam 2 MG/ML VIAL IVP PRN ×2 (01:26→20:21)
[2018-01-08 06:23] LABS: Calcium 8.7 mg/dL (8.6-10.3); Carbon Dioxide 22 mEq/L (23-29); Chloride 103 mEq/L (98-107); Potassium 3.7 mEq/L (3.5-5.1); Sodium 133 mEq/L (136-145)
[2018-01-08 06:28] LABS: BUN/Creatinine Ratio 10 (6-26); Blood Urea Nitrogen 7 mg/dL (8-23); Glucose 83 mg/dL (70-105); Osmolality,Calculated 273 (280-300); eGFR For African Americans > 60 (> 60); eGFR For Non-African Americans > 60 (> 60)
[2018-01-08 06:35] LABS: Basophils % 0.6 %; Hematocrit 30.1 % (37.5-50.1); Hemoglobin 10.4 g/dL (12.9-16.9); Immature Granulocytes % 0.1 % (0-4); Lymphocytes # 2.3 K/mcL (0.6-4.6); Lymphocytes % 31.6 %; Mean Corpuscular HGB Conc 34.6 g/dL (31.6-35.5); Mean Corpuscular Hemoglobin 32.6 pg (28.0-33.3); Mean Corpuscular Volume 94.4 fL (83.0-100.0); Mean Platelet Volume 10.9 fL (9.4-12.4); Monocytes # 0.8 K/mcL (0.0-1.3); Neutrophils # 4.1 K/mcL (1.6-8.9); Platelet Count 202 K/mcL (140-400); Red Blood Count 3.19 M/mcL (4.19-5.50); Red Cell Distribution Width 12.1 % (11.5-14.5); Segmented Neutrophils % 56.7 %
[2018-01-08] MEDS: 0.9 % Sodium Chloride 1,000 ML IVC SCH ×3 (06:58→20:21)
--- NOTE | 2018-01-08 07:45 | Internal Med Progress Note ---
Date of Encounter: 01/08/18 Time of Encounter: 07:43 - Assessment and plan (1) Dehydration Current Visit: Yes Status: Resolved Assessment and plan: Continue IVF - Resolved If AAA situation is clarified, most likely discharge today. (2) Acute encephalopathy Current Visit: Yes Status: Resolved Assessment and plan: Was from high dose of opiates, resolved. Patient may resume Roxicodone at lower dose 5 mg Q6H for now and titrate here. (3) CAD (coronary artery disease) Current Visit: No Status: Chronic Qualifiers: Coronary Disease-Associated Artery/Lesion type: [place] artery [place] vs. transplanted heart: [place] heart Associated angina: without angina Qualified Code(s): I25.10 - Atherosclerotic heart disease of [place] coronary artery without angina pectoris (4) COPD (chronic obstructive pulmonary disease) Current Visit: No Status: Chronic Qualifiers: COPD type: chronic bronchitis Chronic bronchitis type: unspecified Qualified Code(s): J42 - Unspecified chronic bronchitis (5) Protein-calorie malnutrition, moderate Current Visit: Yes Status: Acute Assessment and plan: Nutrition consulted Magic up TID (6) Small cell lung cancer Current Visit: Yes Status: Chronic Qualifiers: Laterality: unspecified laterality Qualified Code(s): C34.90 - Malignant neoplasm of unspecified part of unspecified bronchus or lung (7) Abdominal aortic aneurysm (AAA) greater than 5.5 cm in diameter in male Current Visit: Yes Status: Acute Assessment and plan: I do not feel his thoracic back pain is related to AAA because of location. However, I need to verify with who will be coming later today if this is known finding. Daughter is unsure. (8) Atrial fibrillation Current Visit: Yes Status: Acute Assessment and plan: On Xarelto and metoprolol Qualifiers: Atrial fibrillation type: unspecified Qualified Code(s): I48.91 - Unspecified atrial fibrillation (9) Hypothyroidism Current Visit: No Status: Acute Qualifiers: Hypothyroidism type: unspecified Qualified Code(s): E03.9 - Hypothyroidism , unspecified (10) Heart failure Current Visit: Yes Status: Acute Qualifiers: Heart failure type: diastolic Heart failure chronicity: chronic Qualified Code(s): I50.32 - Chronic diastolic (congestive) heart failure - Subjective Interval history: Daughter at bedside. Patient doing well. Still has back pain. Feels well hydrated. Discussed AAA with daughter and patient unsure if he known about previous AAA findings. He denies chest pain and abdominal pain this AM. - Constitutional Vitals: Temp Pulse Resp BP Pulse Ox 97.7 F 69 16 114/68 94 01/08/18 04:34 01/08/18 04:34 01/08/18 04:34 01/08/18 04:34 01/08/18 04:34 General appearance: Present: cooperative, A&O X 3, answers questions appropriately Exam: CVS: RRR Lungs: CTAB Abd; soft, NT, ND, normal BS Back: +TTP in left sided thoracic region Ext: no edema Internal Medicine: Result - Labs CBC & Chem 7: 01/08/18 04:29 01/08/18 04:29 Labs: Short CBC 01/07/18 01/08/18 Range/Units 10:40 04:29 WBC 6.7 7.3 (4.3-11.1) K/mcL Hgb 10.7 L 10.4 L (12.9-16.9) g/dL Hct 30.7 L 30.1 L (37.5-50.1) % Plt Count 186 202 (140-400) K/mcL Neutrophils # 4.6 4.1 (1.6-8.9) K/mcL BMP 01/07/18 01/08/18 10:40 04:29 Sodium 133 L 133 L Potassium 3.3 L 3.7 Chloride 102 103 Carbon Dioxide 25 22 L BUN 9 7 L Creatinine 0.77 0.69 L Glucose 100 83 Calcium 8.9 8.7 - Impressions Impressions Abdomen/Pelvis CT 01/07/18 08:30 IMPRESSION: 1. New trace right and slight progression of a trace left pleural effusion. 2. Nonspecific new patchy ground-glass densities of the left lung base. An acute infectious/inflammatory process cannot be excluded. 3. Infrarenal 5.8 cm abdominal aortic aneurysm which has progressed since the prior exam. It was previously measured at 5.2 cm. No acute hemorrhage. 4. Stable bilateral adrenal nodules and calcifications. Interval resolution of rectal wall thickening. D/ / 01/07/2018 10:01:04 Ramone Byrd MD / kathi Interpreting Provider: Ramone Byrd MD Consult Discharge Plan - Plan Referrals: Shabana Fulton, [employer] [Primary Care Provider] - ( )
[2018-01-08] MEDS: Budesonide/Formoterol 160/4.5 MDI IH SCH ×2 (08:04→20:33)
[2018-01-08] MEDS: Aspirin Enteric Coated 81 MG Tablet PO SCH (09:55)
[2018-01-08] MEDS: *HR* Digoxin 0.25 MG TABLET PO SCH (09:55)
[2018-01-08] MEDS: levoFLOXacin 750 MG TABLET PO SCH (09:55)
[2018-01-08] MEDS: *HR* Rivaroxaban 10 MG TABLET PO SCH (09:55)
[2018-01-08] MEDS: Acetaminophen 325 MG TABLET PO PRN (12:38)
--- NOTE | 2018-01-08 15:14 | Discharge Summary ---
Date of Encounter: 01/08/18 Time of Encounter: 15:12 - Discharge Diagnosis (1) Dehydration Priority: Primary Status: Resolved (2) Acute encephalopathy Priority: Secondary Status: Resolved (3) CAD (coronary artery disease) Priority: Secondary Status: Chronic Qualifiers: Coronary Disease-Associated Artery/Lesion type: [place] artery [place] vs. transplanted heart: [place] heart Associated angina: without angina Qualified Code(s): I25.10 - Atherosclerotic heart disease of [place] coronary artery without angina pectoris (4) COPD (chronic obstructive pulmonary disease) Priority: Secondary Status: Chronic Qualifiers: COPD type: chronic bronchitis Chronic bronchitis type: unspecified Qualified Code(s): J42 - Unspecified chronic bronchitis (5) Protein-calorie malnutrition, moderate Priority: Secondary Status: Acute (6) Small cell lung cancer Priority: Secondary Status: Chronic Qualifiers: Laterality: unspecified laterality Qualified Code(s): C34.90 - Malignant neoplasm of unspecified part of unspecified bronchus or lung (7) Abdominal aortic aneurysm (AAA) greater than 5.5 cm in diameter in male Priority: Secondary Status: Acute (8) Atrial fibrillation Priority: Secondary Status: Acute Qualifiers: Atrial fibrillation type: unspecified Qualified Code(s): I48.91 - Unspecified atrial fibrillation (9) Hypothyroidism Priority: Secondary Status: Acute Qualifiers: Hypothyroidism type: unspecified Qualified Code(s): E03.9 - Hypothyroidism , unspecified (10) Heart failure Priority: Secondary Status: Acute Qualifiers: Heart failure type: diastolic Heart failure chronicity: chronic Qualified Code(s): I50.32 - Chronic diastolic (congestive) heart failure - Discharge Medications Home Medications: Budesonide/Formoterol 160/4.5 [Symbicort 160/4.5] 1 puff IH BIDR 12/29/17 [ History] Citalopram [CeleXA] 40 mg PO DAILY 12/29/17 [History] Digoxin [Lanoxin] 0.25 mg PO DAILY 12/29/17 [History] Diltiazem CD (24hr) [Cardizem CD] 180 mg PO DAILY 12/29/17 [History] Furosemide [Lasix] 20 mg PO DAILY 12/29/17 [History] LORazepam [Ativan] 1 mg PO QID PRN 12/29/17 [History] Levothyroxine [Synthroid] 100 mcg PO QAM 12/29/17 [History] OxyCODONE Immed Rel [Roxicodone 15 MG] 15 mg PO Q6HR PRN 12/29/17 [History] Oxygen 2 l NS AD 12/29/17 [History] methIMAzole [Tapazole] 5 mg PO BID 12/29/17 [History] Albuterol Sulfate [Albuterol Inhaler] 2 puff IH Q4H PRN 01/04/18 [History] Aspirin Enteric Coated [Aspirin EC] 81 mg PO DAILY 01/04/18 [History] Guaifenesin [Mucinex] 1,200 mg PO BID 01/04/18 [History] Lidocaine/Prilocaine CREAM [Emla] 1 appl TP AD 01/04/18 [History] Magic Mouthwash [Magic Mouthwash BLM] 10 ml PO QID PRN 01/04/18 [History] Metoprolol [Lopressor] 25 mg PO BID 01/04/18 [History] Omeprazole [PriLOSEC] 20 mg PO DAILY 01/04/18 [History] Ondansetron [Zofran] 8 mg PO Q8H PRN 01/04/18 [History] Pravastatin Sodium [Pravachol] 40 mg PO HS 01/04/18 [History] Prochlorperazine Maleate [Compazine] 10 mg PO Q6H PRN 01/04/18 [History] Rivaroxaban [Xarelto] 20 mg PO DAILY 01/04/18 [History] levoFLOXacin [Levaquin] 750 mg PO DAILY #6 tablet 01/08/18 [Rx] Allergies/Adverse Reactions: 3 Allergy/AdvReac Type Severity Reaction Status Date / Time No Known Allergies Allergy Verified 01/04/18 12:25 Procedures/tests Complete & Pending: Procedures Performed prior 72 hours Category Date Time Status CT abd pelvis w iv no oral [CT] Routine Cat Scan 01/07/18 08:30 Completed Date of admission: 01/04/18 18:13 Primary care physician: Shabana Fulton CNP Consults: 01/04/18 20:21 Consult to Occupational Therapy [CONS] Routine Comment: Evaluate, develop and implement POC Reason for Consult: Physical deconditioning Consult to Physical Therapy [CONS] Routine Comment: Evaluate, develop and implement POC Reason for Consult: Physical deconditoining 01/05/18 09:11 Consult to Oncology Hematology [CONS] Routine Consulting Provider: Archie Lieberman Reason for Consult: Squamous cell carcinoma lung. Call Completed: Yes 01/06/18 08:47 Consult to Event Marketing Specialist [CONS] Routine Reason for SW Consult: DC planning. PT/OT recommending Inpatient Rehab/Swing bed. Pt resides in [facility] 01/07/18 08:35 Consult to Nutrition [CONS] Routine Comment: FTT Consulting Provider: NUTRITION Reason for Dietary Consult: PO Supplementation Discharging clinician: Priscila Workman - Patient Status Disposition: Transfer Inpatient Rehab Fac Condition: Good Functional capacity at discharge: wheelchair bound Overall status at discharge: patient is progressing back to baseline - Ambulatory Orders Ambulatory Orders: Dietary Supplement Time Frame: 24 Months, Facility: [facility], Location: Pharmacy - Discharge Instructions Follow Up With: Shaabna Fulton CNP [Primary Care Provider] - ( ) - Diet and Activity Activity: as per physical therapy Diet: advance to your usual diet Hospital course: Mr. Farias is a 67 year old male with known PMH of arthritis, Chronic atrial fibrillation, Small cell Lung cancer, bilateral adrenal metastases COPD on 2 lit nocturnal home O2 dependent, coronary artery disease, hyperlipidemia, hypertension, osteoporosis, and hyperthyroidism pt who is currently on active immunotherapy for lung cancer presented to ER from Heme Onc office with generalized weakness and worsening low back pain. He lost a significant amount of weight. Patient denies any nausea, vomiting or diarrhea. He does state he just has no urge to eat. Patient had hyponatremia and hypothyroidism. He was admitted to Med Surg for observation. He was given IV fluid. Oncology was consulted. A CT abdomen and pelvis was done showing no bone lesions. There was increase in size of a AAA that is now 5.[address] abdomen/pelvis and prior imaging was 5.2 cm. Vascular Surgery was consulted and arranged for outpatient follow-up. Patient fluid status was eventually euvolemic. Diet improved. He is pending inpatient rehab bed. - Time Spent with Patient Total time spent providing and/or coordinating discharge services: - Constitutional Vitals: Temp Pulse Resp BP Pulse Ox 98.3 F 63 18 114/72 95 01/08/18 11:52 01/08/18 11:52 01/08/18 11:52 01/08/18 11:52 01/08/18 11:52 General appearance: Present: cooperative, A&O X 3, answers questions appropriately - Head Head exam: Present: atraumatic, normocephalic - Eye Eye exam: Present: PERRL, conjuntiva pink, sclera anicteric Pupils: Present: PERRL - Neck Neck exam general surgery: Present: supple, trachea midline. Absent: lymphadenopathy - Respiratory Respiratory exam: Present: CTAB. Absent: accessory muscle use, rales, rhonchi, wheezes - Cardiovascular Cardiovascular exam: Present: RRR, +S1, +S2. Absent: diastolic murmur, gallop, rubs, systolic murmur - GI/Abdominal GI/Abdominal exam: Present: normal bowel sounds, soft, no peritoneal signs. Absent: distended, tenderness - Extremities Exam Extremities exam: Present: warm, radial pulses palpable and symmetrical. Absent : calf tenderness, cyanotic, pedal edema - Neurological Exam Neurological exam: Present: CN II-XII intact, oriented X3, no focal deficits. Absent: pronater drift, facial droop, speech deficit - Skin Skin exam: Present: dry, intact
--- NOTE | 2018-01-08 16:52 | Vascular/Endovasc Consult Note ---
Date of Encounter: 01/08/18 Time of Encounter: 16:30 Assessment and Plan (1) Abdominal aortic aneurysm (AAA) greater than 5.5 cm in diameter in male Status: Chronic The patient has an infrarenal abdominal aortic aneurysm which measures approximately 5.5cm. His CT scan reveals that he may be a candidate for endograft repair. His images will be reviewed for graft sizing. The patient is currently acutely ill. He may follow-up in vascular clinic for further evaluation and to discuss elective repair after his condition improves. Given his comorbidities, he is at increased risk for surgery. He expressed understanding. He was advised to seek immediate medical attention for acute onset abdominal, flank or back pain. (2) Atrial fibrillation Status: Chronic Qualifiers: Atrial fibrillation type: unspecified Qualified Code(s): I48.91 - Unspecified atrial fibrillation (3) CAD (coronary artery disease) Status: Chronic Qualifiers: Coronary Disease-Associated Artery/Lesion type: [place] artery [place] vs. transplanted heart: [place] heart Associated angina: without angina Qualified Code(s): I25.10 - Atherosclerotic heart disease of [place] coronary artery without angina pectoris (4) COPD (chronic obstructive pulmonary disease) Status: Chronic Qualifiers: COPD type: chronic bronchitis Chronic bronchitis type: unspecified Qualified Code(s): J42 - Unspecified chronic bronchitis (5) Dyslipidemia Status: Chronic (6) Hypertension Status: Chronic Qualifiers: Hypertension type: essential hypertension Qualified Code(s): I10 - Essential (primary) hypertension (7) Lung cancer Status: Chronic Qualifiers: Laterality: left Lung location: overlapping sites Qualified Code(s): C34.82 - Malignant neoplasm of overlapping sites of left bronchus and lung - History of Present Illness Consult date: 01/08/18 Requesting physician: Priscila Workman Consult reason: Abdominal Aortic Aneurysm Chief complaint: dehydrateion, lung cancer History of present illness: Mr. Farias is a 67 year old male with a history of atrial fibrillation, metastatic small cell lung cancer, coronary artery disease, hyperlipidemia and hypertension who was admitted to [facility] with nausea, vomiting and diarrhea. He was hydrated and improved. As part of his evaluation he underwent a CT scan and was noted to have an abdominal aortic aneurysm. His aneurysm had increased in size and vascular surgery was consulted for further evaluation. At the time of evaluation, the patient is alert and comfortable without complaints. He denies chest pain or shortness of breath. Past Med Surg Social Fam HX - Past Medical History Medical history: arthritis, asthma, atrial fibrillation, cancer, COPD, coronary artery disease, hyperlipidemia, hypertension, osteoporosis, thyroid disease Psychiatric history: anxiety - Past Surgical History Surgical History: angioplasty/stent, other (Lung biopsy, squamous cell cancer) - Social History Smoking Status: Current every day smoker Smokeless Tobacco Status: Yes Alcohol use: none Drug use: none - Family History Father Living Status: Hx Family Cardiac Disorders: Yes Medications and Allergies Budesonide/Formoterol 160/4.5 [Symbicort 160/4.5] 1 puff IH BIDR 12/29/17 [ History] Citalopram [CeleXA] 40 mg PO DAILY 12/29/17 [History] Digoxin [Lanoxin] 0.25 mg PO DAILY 12/29/17 [History] Diltiazem CD (24hr) [Cardizem CD] 180 mg PO DAILY 12/29/17 [History] Furosemide [Lasix] 20 mg PO DAILY 12/29/17 [History] LORazepam [Ativan] 1 mg PO QID PRN 12/29/17 [History] Levothyroxine [Synthroid] 100 mcg PO QAM 12/29/17 [History] OxyCODONE Immed Rel [Roxicodone 15 MG] 15 mg PO Q6HR PRN 12/29/17 [History] Oxygen 2 l NS AD 12/29/17 [History] methIMAzole [Tapazole] 5 mg PO BID 12/29/17 [History] Albuterol Sulfate [Albuterol Inhaler] 2 puff IH Q4H PRN 01/04/18 [History] Aspirin Enteric Coated [Aspirin EC] 81 mg PO DAILY 01/04/18 [History] Guaifenesin [Mucinex] 1,200 mg PO BID 01/04/18 [History] Lidocaine/Prilocaine CREAM [Emla] 1 appl TP AD 01/04/18 [History] Magic Mouthwash [Magic Mouthwash BLM] 10 ml PO QID PRN 01/04/18 [History] Metoprolol [Lopressor] 25 mg PO BID 01/04/18 [History] Omeprazole [PriLOSEC] 20 mg PO DAILY 01/04/18 [History] Ondansetron [Zofran] 8 mg PO Q8H PRN 01/04/18 [History] Pravastatin Sodium [Pravachol] 40 mg PO HS 01/04/18 [History] Prochlorperazine Maleate [Compazine] 10 mg PO Q6H PRN 01/04/18 [History] Rivaroxaban [Xarelto] 20 mg PO DAILY 01/04/18 [History] levoFLOXacin [Levaquin] 750 mg PO DAILY #6 tablet 01/08/18 [Rx] 3 Allergy/AdvReac Type Severity Reaction Status Date / Time No Known Allergies Allergy Verified 01/04/18 12:25 All Systems Review: A 10-system review of systems was performed and is negative for pertinent findings except as documented above in the HPI. Exam General: Present: Conversant, No Apparent Distress HEENT: Present: Atraumatic, Pupils equal Neck: Absent: JVD, Lymphadenopathy, Left Carotid bruit, Right Carotid bruit Cardiac: Present: Irregular Rhythm Lungs: Present: Normal Breath Sounds, No Wheeze, Rales, Rhonchi Neuro: Present: Alert and responsive, Motor nerves grossly intact, Sensory nerves grossly intact Abdomen: Present: Soft, Non-tender. Absent: Masses Vascular: Present: Normal capillary refill. Absent: Cyanosis, Edema Skin: Present: No rashes noted on visualized skin Musculoskeletal: Present: No Chest Wall Tenderness Consult Discharge Plan - Plan Referrals: Shabana Fulton, CLINICAL WRITER [Primary Care Provider] - ( )
[2018-01-08] MEDS: Diltiazem CD (24hr) 180 MG CAPSULE PO SCH (23:21)
[2018-01-09] MEDS: *HR* LORazepam 2 MG/ML VIAL IVP PRN ×2 (02:19→20:59)
[2018-01-09 03:59] LABS: Basophils % 0.3 %; Hematocrit 32.4 % (37.5-50.1); Hemoglobin 11.2 g/dL (12.9-16.9); Immature Granulocytes % 0.1 % (0-4); Lymphocytes % 30.2 %; Mean Corpuscular HGB Conc 34.6 g/dL (31.6-35.5); Mean Corpuscular Volume 92.6 fL (83.0-100.0); Mean Platelet Volume 10.5 fL (9.4-12.4); Monocytes % 10.7 %; Platelet Count 227 K/mcL (140-400); Red Cell Distribution Width 11.8 % (11.5-14.5); Segmented Neutrophils % 58.7 %
[2018-01-09 04:00] LABS: Lymphocytes # 2.7 K/mcL (0.6-4.6); Neutrophils # 5.3 K/mcL (1.6-8.9)
[2018-01-09 05:33] LABS: BUN/Creatinine Ratio 9 (6-26); Blood Urea Nitrogen 6 mg/dL (8-23); Carbon Dioxide 23 mEq/L (23-29); Chloride 99 mEq/L (98-107); Glucose 85 mg/dL (70-105); Osmolality,Calculated 269 (280-300); Potassium 3.5 mEq/L (3.5-5.1); Sodium 131 mEq/L (136-145); eGFR For African Americans > 60 (> 60); eGFR For Non-African Americans > 60 (> 60)
[2018-01-09] MEDS: 0.9 % Sodium Chloride 1,000 ML IVC SCH (06:27)
[2018-01-09] MEDS: Budesonide/Formoterol 160/4.5 MDI IH SCH ×2 (08:01→20:11)
[2018-01-09] MEDS: levoFLOXacin 750 MG TABLET PO SCH (08:10)
[2018-01-09] MEDS: Diltiazem CD (24hr) 180 MG CAPSULE PO SCH (08:10)
[2018-01-09] MEDS: Aspirin Enteric Coated 81 MG Tablet PO SCH (08:10)
[2018-01-09] MEDS: *HR* Digoxin 0.25 MG TABLET PO SCH (08:10)
[2018-01-09] MEDS: Acetaminophen 325 MG TABLET PO PRN ×2 (08:10→15:36)
[2018-01-09] MEDS: *HR* Rivaroxaban 10 MG TABLET PO SCH (08:11)
--- NOTE | 2018-01-09 12:35 | Internal Med Progress Note ---
Date of Encounter: 01/09/18 Time of Encounter: 12:23 - Assessment and plan (1) Dehydration Current Visit: Yes Status: Resolved Assessment and plan: Sodium decreased to 131. Patient has received IV fluid support. Will hold fluids and encourage PO, . If this doesn't improve sodium, will resume IVF tomorrow. (2) Acute encephalopathy Current Visit: Yes Status: Resolved Assessment and plan: Was from high dose of opiates, resolved. Patient may resume Roxicodone at lower dose 5 mg Q6H for now and titrate here. (3) CAD (coronary artery disease) Current Visit: No Status: Chronic Qualifiers: Coronary Disease-Associated Artery/Lesion type: [place] artery [place] vs. transplanted heart: [place] heart Associated angina: without angina Qualified Code(s): I25.10 - Atherosclerotic heart disease of [place] coronary artery without angina pectoris (4) COPD (chronic obstructive pulmonary disease) Current Visit: No Status: Chronic Qualifiers: COPD type: chronic bronchitis Chronic bronchitis type: unspecified Qualified Code(s): J42 - Unspecified chronic bronchitis (5) Protein-calorie malnutrition, moderate Current Visit: Yes Status: Acute Assessment and plan: Nutrition consulted Magic up TID (6) Small cell lung cancer Current Visit: Yes Status: Chronic Qualifiers: Laterality: unspecified laterality Qualified Code(s): C34.90 - Malignant neoplasm of unspecified part of unspecified bronchus or lung (7) Abdominal aortic aneurysm (AAA) greater than 5.5 cm in diameter in male Current Visit: Yes Status: Acute Assessment and plan: I do not feel his thoracic back pain is related to AAA because of location. However, I need to verify with who will be coming later today if this is known finding. Daughter is unsure. (8) Atrial fibrillation Current Visit: Yes Status: Acute Assessment and plan: On Xarelto and metoprolol Qualifiers: Atrial fibrillation type: unspecified Qualified Code(s): I48.91 - Unspecified atrial fibrillation (9) Hypothyroidism Current Visit: No Status: Acute Qualifiers: Hypothyroidism type: unspecified Qualified Code(s): E03.9 - Hypothyroidism , unspecified (10) Heart failure Current Visit: Yes Status: Acute Qualifiers: Heart failure type: diastolic Heart failure chronicity: chronic Qualified Code(s): I50.32 - Chronic diastolic (congestive) heart failure - Subjective Interval history: Daughter and son at bedside. Patient doing well. Still has back pain otherwise no complaints. - Constitutional Vitals: Temp Pulse Resp BP Pulse Ox 97.7 F 64 20 115/74 96 01/09/18 11:14 01/09/18 11:14 01/09/18 11:14 01/09/18 11:14 01/09/18 11:14 General appearance: Present: cooperative, A&O X 3, answers questions appropriately - Head Head exam: Present: atraumatic, normocephalic - Eye Eye exam: Present: PERRL, conjuntiva pink, sclera anicteric Pupils: Present: PERRL - Neck Neck exam general surgery: Present: supple, trachea midline. Absent: lymphadenopathy - Respiratory Respiratory exam: Present: CTAB. Absent: accessory muscle use, rales, rhonchi, wheezes - Cardiovascular Cardiovascular exam: Present: RRR, +S1, +S2. Absent: diastolic murmur, gallop, rubs, systolic murmur - GI/Abdominal GI/Abdominal exam: Present: normal bowel sounds, soft, no peritoneal signs. Absent: distended, tenderness - Extremities Exam Extremities exam: Present: warm, radial pulses palpable and symmetrical. Absent : calf tenderness, cyanotic, pedal edema - Neurological Exam Neurological exam: Present: CN II-XII intact, oriented X3, no focal deficits. Absent: pronater drift, facial droop, speech deficit - Skin Skin exam: Present: dry, intact Internal Medicine: Result - Labs CBC & Chem 7: 01/09/18 03:30 01/09/18 03:30 Labs: Short CBC 01/09/18 Range/Units 03:30 WBC 9.0 (4.3-11.1) K/mcL Hgb 11.2 L (12.9-16.9) g/dL Hct 32.4 L (37.5-50.1) % Plt Count 227 (140-400) K/mcL Neutrophils # 5.3 (1.6-8.9) K/mcL BMP 01/09/18 03:30 Sodium 131 L Potassium 3.5 Chloride 99 Carbon Dioxide 23 BUN 6 L Creatinine 0.68 L Glucose 85 Calcium 9.0 Consult Discharge Plan - Plan Referrals: Shabana Fulton, [employer]ER [Primary Care Provider] - ( )
[2018-01-10] MEDS: *HR* OxyCODONE Immed Rel 5 MG TABLET PO PRN ×2 (01:42→18:52)
[2018-01-10 04:33] LABS: Basophils % 0.4 %; Hematocrit 31.6 % (37.5-50.1); Hemoglobin 11.1 g/dL (12.9-16.9); Immature Granulocytes % 0.3 % (0-4); Lymphocytes # 2.4 K/mcL (0.6-4.6); Mean Corpuscular HGB Conc 35.1 g/dL (31.6-35.5); Mean Corpuscular Hemoglobin 32.5 pg (28.0-33.3); Mean Corpuscular Volume 92.4 fL (83.0-100.0); Mean Platelet Volume 10.7 fL (9.4-12.4); Monocytes # 0.8 K/mcL (0.0-1.3); Monocytes % 10.6 %; Neutrophils # 4.5 K/mcL (1.6-8.9); Platelet Count 225 K/mcL (140-400); Red Blood Count 3.42 M/mcL (4.19-5.50); Red Cell Distribution Width 11.9 % (11.5-14.5); Segmented Neutrophils % 57.7 %
[2018-01-10 05:15] LABS: BUN/Creatinine Ratio 8 (6-26); Blood Urea Nitrogen 6 mg/dL (8-23); Calcium 9.1 mg/dL (8.6-10.3); Carbon Dioxide 25 mEq/L (23-29); Chloride 98 mEq/L (98-107); Glucose 89 mg/dL (70-105); Osmolality,Calculated 267 (280-300); Potassium 3.3 mEq/L (3.5-5.1); Sodium 130 mEq/L (136-145); eGFR For African Americans > 60 (> 60); eGFR For Non-African Americans > 60 (> 60)
[2018-01-10] MEDS: *HR* LORazepam 2 MG/ML VIAL IVP PRN (05:35)
[2018-01-10] MEDS ORDERED: Aminoglycoside Consult 1 EACH MC ONE (08:10)
[2018-01-10] MEDS: Budesonide/Formoterol 160/4.5 MDI IH SCH ×2 (08:34→22:47)
[2018-01-10] MEDS: Aspirin Enteric Coated 81 MG Tablet PO SCH (09:05)
[2018-01-10] MEDS: levoFLOXacin 750 MG TABLET PO SCH (09:05)
[2018-01-10] MEDS: *HR* Digoxin 0.25 MG TABLET PO SCH (09:05)
[2018-01-10] MEDS: *HR* Rivaroxaban 10 MG TABLET PO SCH (09:05)
[2018-01-10] MEDS: Diltiazem CD (24hr) 180 MG CAPSULE PO SCH (09:05)
--- NOTE | 2018-01-10 14:54 | Internal Med Progress Note ---
Date of Encounter: 01/10/18 Time of Encounter: 14:49 - Assessment and plan (1) Dehydration Current Visit: Yes Status: Resolved Assessment and plan: Patient has received IV fluid support. Will hold fluids and encourage PO Please see discharge summary for hospital course. Awaiting placement. (2) Acute encephalopathy Current Visit: Yes Status: Resolved Assessment and plan: Was from high dose of opiates, resolved. Patient may resume Roxicodone at lower dose 5 mg Q6H for now and titrate here. (3) CAD (coronary artery disease) Current Visit: No Status: Chronic Qualifiers: Coronary Disease-Associated Artery/Lesion type: [place] artery [place] vs. transplanted heart: [place] heart Associated angina: without angina Qualified Code(s): I25.10 - Atherosclerotic heart disease of [place] coronary artery without angina pectoris (4) COPD (chronic obstructive pulmonary disease) Current Visit: No Status: Chronic Qualifiers: COPD type: chronic bronchitis Chronic bronchitis type: unspecified Qualified Code(s): J42 - Unspecified chronic bronchitis (5) Protein-calorie malnutrition, moderate Current Visit: Yes Status: Acute Assessment and plan: Nutrition consulted [facility] (6) Small cell lung cancer Current Visit: Yes Status: Chronic Qualifiers: Laterality: unspecified laterality Qualified Code(s): C34.90 - Malignant neoplasm of unspecified part of unspecified bronchus or lung (7) Abdominal aortic aneurysm (AAA) greater than 5.5 cm in diameter in male Current Visit: Yes Status: Acute Assessment and plan: I do not feel his thoracic back pain is related to AAA because of location. However, I need to verify with who will be coming later today if this is known finding. Daughter is unsure. (8) Atrial fibrillation Current Visit: Yes Status: Acute Assessment and plan: On Xarelto and metoprolol Qualifiers: Atrial fibrillation type: unspecified Qualified Code(s): I48.91 - Unspecified atrial fibrillation (9) Hypothyroidism Current Visit: No Status: Acute Qualifiers: Hypothyroidism type: unspecified Qualified Code(s): E03.9 - Hypothyroidism , unspecified (10) Heart failure Current Visit: Yes Status: Acute Qualifiers: Heart failure type: diastolic Heart failure chronicity: chronic Qualified Code(s): I50.32 - Chronic diastolic (congestive) heart failure - Subjective Interval history: No complaints, no acute events. Tells me he does not have any back pain. Noted that nursing reports he does complain of back pain with moving patient. - Constitutional Vitals: Temp Pulse Resp BP Pulse Ox 97.7 F 60 18 118/73 98 01/10/18 10:59 01/10/18 10:59 01/10/18 10:59 01/10/18 10:59 01/10/18 10:59 General appearance: Present: cooperative, A&O X 3, answers questions appropriately - Head Head exam: Present: atraumatic, normocephalic - Eye Eye exam: Present: PERRL, conjuntiva pink, sclera anicteric Pupils: Present: PERRL - Neck Neck exam general surgery: Present: supple, trachea midline. Absent: lymphadenopathy - Respiratory Respiratory exam: Present: CTAB. Absent: accessory muscle use, rales, rhonchi, wheezes - Cardiovascular Cardiovascular exam: Present: RRR, +S1, +S2. Absent: diastolic murmur, gallop, rubs, systolic murmur - GI/Abdominal GI/Abdominal exam: Present: normal bowel sounds, soft, no peritoneal signs. Absent: distended, tenderness - Extremities Exam Extremities exam: Present: warm, radial pulses palpable and symmetrical. Absent : calf tenderness, cyanotic, pedal edema - Neurological Exam Neurological exam: Present: CN II-XII intact, oriented X3, no focal deficits. Absent: pronater drift, facial droop, speech deficit - Skin Skin exam: Present: dry, intact Internal Medicine: Result - Labs CBC & Chem 7: 01/10/18 04:05 01/10/18 04:05 Consult Discharge Plan - Plan Referrals: Shabana Fulton, LABORER SAWMILL [Primary Care Provider] - ( )
[2018-01-10] MEDS: 0.9 % Sodium Chloride 1,000 ML IVC SCH (16:53)
[2018-01-11] MEDS: *HR* OxyCODONE Immed Rel 5 MG TABLET PO PRN (01:15)
[2018-01-11] MEDS: *HR* LORazepam 2 MG/ML VIAL IVP PRN (04:50)
[2018-01-11] MEDS: 0.9 % Sodium Chloride 1,000 ML IVC SCH (04:51)
[2018-01-11 05:00] LABS: Basophils % 0.4 %; Hematocrit 32.4 % (37.5-50.1); Hemoglobin 11.2 g/dL (12.9-16.9); Immature Granulocytes % 0.1 % (0-4); Lymphocytes % 28.3 %; Mean Corpuscular HGB Conc 34.6 g/dL (31.6-35.5); Mean Corpuscular Hemoglobin 31.8 pg (28.0-33.3); Mean Platelet Volume 10.4 fL (9.4-12.4); Monocytes # 0.7 K/mcL (0.0-1.3); Monocytes % 9.6 %; Neutrophils # 4.4 K/mcL (1.6-8.9); Platelet Count 238 K/mcL (140-400); Red Blood Count 3.52 M/mcL (4.19-5.50); Segmented Neutrophils % 61.6 %
[2018-01-11 05:33] LABS: BUN/Creatinine Ratio 10 (6-26); Blood Urea Nitrogen 7 mg/dL (8-23); Calcium 8.9 mg/dL (8.6-10.3); Carbon Dioxide 25 mEq/L (23-29); Chloride 98 mEq/L (98-107); Glucose 84 mg/dL (70-105); Magnesium 1.4 mg/dL (1.6-2.6); Osmolality,Calculated 269 (280-300); Phosphorous 3.6 mg/dL (2.7-4.5); Potassium 3.4 mEq/L (3.5-5.1); Sodium 131 mEq/L (136-145); eGFR For African Americans > 60 (> 60); eGFR For Non-African Americans > 60 (> 60)
[2018-01-11] MEDS: Budesonide/Formoterol 160/4.5 MDI IH SCH ×2 (07:51→20:20)
[2018-01-11] MEDS: *HR* Rivaroxaban 10 MG TABLET PO SCH (08:37)
[2018-01-11] MEDS: levoFLOXacin 750 MG TABLET PO SCH (08:37)
[2018-01-11] MEDS: *HR* Digoxin 0.25 MG TABLET PO SCH (08:37)
[2018-01-11] MEDS: Diltiazem CD (24hr) 180 MG CAPSULE PO SCH (08:37)
[2018-01-11] MEDS: Aspirin Enteric Coated 81 MG Tablet PO SCH (08:37)
[2018-01-11] MEDS ORDERED: Potassium Chloride Elixir 20 MEQ/15 ML UDC PO ONE (14:46)
--- NOTE | 2018-01-11 15:18 | Internal Med Progress Note ---
Date of Encounter: 01/11/18 Time of Encounter: 15:15 - Assessment and plan (1) Dehydration Current Visit: Yes Status: Resolved Assessment and plan: Patient has received IV fluid support. He is lethargic and refusing to eat. I will hold fluids for right now because he is high risk for fluid overload. I suspect this possibly advancing cancer related. Would like Oncology input on this. Also will consult Palliative team to help establish goals of care with this patient. Cancel discharge order. (2) CAD (coronary artery disease) Current Visit: No Status: Chronic Qualifiers: Coronary Disease-Associated Artery/Lesion type: [place] artery [place] vs. transplanted heart: [place] heart Associated angina: without angina Qualified Code(s): I25.10 - Atherosclerotic heart disease of [place] coronary artery without angina pectoris (3) COPD (chronic obstructive pulmonary disease) Current Visit: No Status: Chronic Qualifiers: COPD type: chronic bronchitis Chronic bronchitis type: unspecified Qualified Code(s): J42 - Unspecified chronic bronchitis (4) Protein-calorie malnutrition, moderate Current Visit: Yes Status: Acute Assessment and plan: Nutrition consulted [facility] (5) Small cell lung cancer Current Visit: Yes Status: Chronic Qualifiers: Laterality: unspecified laterality Qualified Code(s): C34.90 - Malignant neoplasm of unspecified part of unspecified bronchus or lung (6) Abdominal aortic aneurysm (AAA) greater than 5.5 cm in diameter in male Current Visit: Yes Status: Acute Assessment and plan: Vascular Surgery was consulted, patient can be seen as outpatient when stable for discharge. (7) Atrial fibrillation Current Visit: Yes Status: Acute Assessment and plan: On Xarelto and metoprolol Qualifiers: Atrial fibrillation type: unspecified Qualified Code(s): I48.91 - Unspecified atrial fibrillation (8) Hypothyroidism Current Visit: No Status: Acute Qualifiers: Hypothyroidism type: unspecified Qualified Code(s): E03.9 - Hypothyroidism , unspecified (9) Heart failure Current Visit: Yes Status: Acute Assessment and plan: Patient dehydrated and needs IV fluid, will give cautiously Qualifiers: Heart failure type: diastolic Heart failure chronicity: chronic Qualified Code(s): I50.32 - Chronic diastolic (congestive) heart failure - Subjective Interval history: and son at bedside. They note that he is more lethargic today and refuses to eat. He is responsive but uncooperative with exam. - Constitutional Vitals: Temp Pulse Resp BP Pulse Ox 97.9 F 70 18 145/85 100 01/11/18 14:36 01/11/18 14:36 01/11/18 14:36 01/11/18 14:36 01/11/18 14:36 General appearance: Present: cooperative, A&O X 3, answers questions appropriately Exam: CVS: irregular irregular Lungs: CTAB Abd: nt/nd Ext: no edema Internal Medicine: Result - Labs CBC & Chem 7: 01/11/18 04:12 01/11/18 04:12 Labs: Short CBC 01/11/18 Range/Units 04:12 WBC 7.2 (4.3-11.1) K/mcL Hgb 11.2 L (12.9-16.9) g/dL Hct 32.4 L (37.5-50.1) % Plt Count 238 (140-400) K/mcL Neutrophils # 4.4 (1.6-8.9) K/mcL BMP 01/11/18 04:12 Sodium 131 L Potassium 3.4 L Chloride 98 Carbon Dioxide 25 BUN 7 L Creatinine 0.70 Glucose 84 Calcium 8.9 Consult Discharge Plan - Plan Referrals: Shabana Fulton, GUM MIXER [Primary Care Provider] - ( )
[2018-01-11] MEDS ORDERED: Ondansetron 4 MG/2 ML VIAL IVP PRN (16:05)
[2018-01-11] MEDS ORDERED: *HR* LORazepam 2 MG/ML VIAL IVP PRN (16:05)
--- NOTE | 2018-01-11 16:26 | Oncology Inp Progress Note ---
Date of Encounter: 01/12/18 Time of Encounter: 16:26 (1) Failure to thrive Status: Acute Assessment and plan: Reports increased weakness, fatigue, decreased appetite with little to no oral intake. Following symptomatic and supportive care during hospitalization with IVF rehydration and PT/OT he had initial improvement but has declined over the weekend with little to no oral intake. He is now altered and unable to safely have PO intake currently. Qualifiers: Failure to thrive age range: in adult Qualified Code(s): R62.7 - Adult failure to thrive (2) Lung cancer Status: Chronic Assessment and plan: Currently on nivolumab 240 mg IV every 2 weeks since 07/09/2017, plan to treat indefinitely until intolerance or further progression. His disease is overall stable/ mild improvement by recent CT chest abdomen and pelvis with contrast 11/24/2017. Last nivolumab treatment on 12/14/2017, most recent cycle was held due to issues leading to admission. Mr. Farias had initially improved following supportive treatment and was planned for discharge today, however, he has acutely declined over weekend. His oral intake has further decreased. He has now become acutely confused, unable to engage in meaningful conversation and altered mental status. at bedside. He is unable to fully follow commands but I did appreciate some left sided weakness. I discussed with patients that I am concerned over his acute decline and will order CT of head/brain wo contrast. I informed patients that initial concern is for CVA, if CT does not explain his AMS, will follow with MRI head w/wo contrast along with CT chest w/ contrast for restaging as it appears he may have either an acute process or progression of cancer. Patients verbalized understanding, although does not seem to yet grasp severity of situation. Appreciate collaboration with primary team and palliative team. Palliative team had previous discussion with patients , patient now DNR DNI, further discussions to take place tomorrow following imaging results. Will also obtain blood glucose and UA. Primary attending, palliative care GYM TEACHER and rounding oncologist updated on POC. I spent greater than 30 minutes in caring and coordinating care for this patient. Qualifiers: Laterality: left Lung location: overlapping sites Qualified Code(s): C34.82 - Malignant neoplasm of overlapping sites of left bronchus and lung Oncology: Subj Interval history: Mr. Cooper is resting in bed, disoriented and follows minimal commands. His is at bedside. He yells out at times which his states he does at home and is not uncommon. He does not make any indication that he is in pain and does not localize any pain. - Constitutional Vitals: Vital Signs Temp Pulse Resp BP Pulse Ox 01/11/18 14:36 97.9 F 70 18 145/85 100 01/11/18 10:37 98.5 F 83 18 164/93 98 01/11/18 07:52 18 96 01/11/18 05:36 98.5 F 70 18 157/82 96 01/10/18 22:47 16 98 01/10/18 19:41 98.1 F 72 18 129/81 98 Intake and Output 01/11/18 01/11/18 01/11/18 07:59 15:59 23:59 Intake Total 1020 / 1020 0 / 0 Output Total 475 / 475 1550 / 1550 Balance 545 / 545 -1550 / -1550 Intake: IV Fluids 1000 / 1000 0.9 % Sodium Chloride 1,000 ML 1000 / 1000 @ 75 mls/hr IVC .[id number] [facility] Rx #:[id number] Oral 20 / 20 0 / 0 Output: Urine 475 / 475 0 / 0 Straight Cath 1550 / 1550 Other: # Voids 1 Weight 94.1 kg Patient Weight 01/11/18 23:59 Weight 94.1 kg General appearance: disheveled, no acute distress, no febrile - Head Head exam: Present: atraumatic - Respiratory Respiratory exam: Present: CTAB. Absent: respiratory distress - Cardiovascular Cardiovascular exam: Present: RRR, +S1, +S2 - GI/Abdominal GI/Abdominal exam: Present: normal bowel sounds, soft. Absent: tenderness - Extremities Exam Extremities exam: Present: pedal edema - Neurological Exam Neurological exam: Present: altered Additional comments: minimally speaks/speech deficit and unable to clearly make out any meaningful conversation, he did answer yes/no at times. Left sided weakness appreciated but he is unable to fully follow commands. - Skin Skin exam: Present: normal color, warm Oncology: Obj Data - Labs CBC & Chem 7: 01/11/18 04:12 01/11/18 04:12 Labs: Laboratory Results - last 24 hr 01/11/18 01/11/18 04:12 04:12 WBC 7.2 RBC 3.52 L Hgb 11.2 L Hct 32.4 L MCV 92.0 MCH 31.8 MCHC 34.6 RDW 12.0 Plt Count 238 MPV 10.4 Immature Gran % 0.1 Seg Neutrophils % 61.6 Lymphocytes % 28.3 Monocytes % 9.6 Eosinophils % 0.0 Basophils % 0.4 Neutrophils # 4.4 Lymphocytes # 2.0 Monocytes # 0.7 Eosinophils # 0.0 Basophils # 0.0 Sodium 131 L Potassium 3.4 L Chloride 98 Carbon Dioxide 25 BUN 7 L Creatinine 0.70 Est GFR ( Amer) > 60 Est GFR (Non-Af Amer) > 60 BUN/Creatinine Ratio 10 Glucose 84 Calculated Osmolality 269 L Calcium 8.9 Phosphorus 3.6 Magnesium 1.4 L Consult Discharge Plan - Plan Referrals: Shabana Fulton, BUSINESS INITIATIVES MANAGER [Primary Care Provider] - ( )
--- NOTE | 2018-01-11 16:28 | Palliative - Consult Note ---
Date of Encounter: 01/11/18 Time of Encounter: 16:25 - Assessment and Plan (1) Nausea & vomiting Current Visit: Yes Status: Acute Assessment and plan: Emesis during my visit. Ondansetron has been given. Did increase interval from every 8 hours to every 6 hours PRN. Monitor. states that he is having BM's Qualifiers: Vomiting type: unspecified Vomiting Intractability: unspecified Qualified Code(s): R11.2 - Nausea with vomiting, unspecified (2) Cancer associated pain Current Visit: Yes Status: Acute Assessment and plan: Continue Oxycodone as ordered. He apparently was on a higher mg at home, but was cutting pill as was too sedating. Difficult with his current mental state to do thorough pain assessment. Monitor (3) Failure to thrive Current Visit: Yes Status: Acute Assessment and plan: PT/OT have been consulted. He was unable to participate today Qualifiers: Failure to thrive age range: in adult Qualified Code(s): R62.7 - Adult failure to thrive (4) Protein-calorie malnutrition, moderate Current Visit: Yes Status: Acute Assessment and plan: Patient vomiting during my visit. Antiemetics ordered. Division Operations Specialist following and sending supplements. Consider appetite stimulant, however, currently with n /v so will not order as of now. (5) Counseling regarding advanced care planning and goals of care Current Visit: Yes Status: Acute Assessment and plan: Met with pt Emilee lee at bedside. Children have left. Patient with altered mental status at this time and could not participate in conversation. is concerned if this is progression of cancer. Oncology has been consulted and will be following up with pt later today. Patient has not completed advanced directives. Discussed code status with and she states pt would not want intubated/ventilated and would not want heroic measures (CPR/resuscitation) for cardiac arrest. Code status changed to DNR/DNI. D/W Dr. Workman. Plan on meeting with and sons tomorrow around 1300 after oncology input. D/W Marlena Acuna NP as well. (6) Small cell lung cancer Current Visit: Yes Status: Chronic Qualifiers: Laterality: unspecified laterality Qualified Code(s): C34.90 - Malignant neoplasm of unspecified part of unspecified bronchus or lung Palliative-CN HPI - Data of Consult Consult date: 01/11/18 Requesting Physician: José Luis Mcdonald MD Primary Care Provider: Shabana Fulton CNP - Consult Narrative History of present illness: Mr. Farias is a 67 year old male who has history of small cell lung cancer currently on Nivolumab, who presented with generalized weakness and low back pain. He has many medical problems including: arthritis, atrial fibrillation on Xarelto, COPD on 2 LPM oxygen at home, coronary artery disease, hyperlipidemia, hypertension, osteoporosis, and hyperthyroidism. Patient mental status is currently altered and at bedside providing information. She states he quit eating 3-4 weeks ago after last treatment. He appeared to improve after IV fluids after admission, and was preparing to go to [facility] at [facility]. However, he is still not eating. Dieticians have been following closely. He has required some IV Lorazepam at night for anxiety, and is on Oxycodone 5mg for pain. Upon my visit, pt appears lethargic - will open eyes, and answered a few "yes/no " questions but does not engage in conversation. He began vomiting while I was in room. Alert pt primary nurse, and he was given ondansetron. Patient's son had left a few minutes prior to my visit. CC: José Luis Mcdonald MD Past Med Surg Social Fam HX - Past Medical History Medical history: arthritis, asthma, atrial fibrillation, cancer, COPD, coronary artery disease, hyperlipidemia, hypertension, osteoporosis, thyroid disease Psychiatric history: anxiety - Past Surgical History Surgical History: angioplasty/stent, other (Lung biopsy, squamous cell cancer) - Social History Smoking Status: Current every day smoker Smokeless Tobacco Status: Yes Alcohol use: none Drug use: none - Family History Father Living Status: Hx Family Cardiac Disorders: Yes Medications and Allergies Budesonide/Formoterol 160/4.5 [Symbicort 160/4.5] 1 puff IH BIDR 12/29/17 [ History] Citalopram [CeleXA] 40 mg PO DAILY 12/29/17 [History] Digoxin [Lanoxin] 0.25 mg PO DAILY 12/29/17 [History] Diltiazem CD (24hr) [Cardizem CD] 180 mg PO DAILY 12/29/17 [History] Furosemide [Lasix] 20 mg PO DAILY 12/29/17 [History] LORazepam [Ativan] 1 mg PO QID PRN 12/29/17 [History] Levothyroxine [Synthroid] 100 mcg PO QAM 12/29/17 [History] OxyCODONE Immed Rel [Roxicodone 15 MG] 15 mg PO Q6HR PRN 12/29/17 [History] Oxygen 2 l NS AD 12/29/17 [History] methIMAzole [Tapazole] 5 mg PO BID 12/29/17 [History] Albuterol Sulfate [Albuterol Inhaler] 2 puff IH Q4H PRN 01/04/18 [History] Aspirin Enteric Coated [Aspirin EC] 81 mg PO DAILY 01/04/18 [History] Guaifenesin [Mucinex] 1,200 mg PO BID 01/04/18 [History] Lidocaine/Prilocaine CREAM [Emla] 1 appl TP AD 01/04/18 [History] Magic Mouthwash [Magic Mouthwash BLM] 10 ml PO QID PRN 01/04/18 [History] Metoprolol [Lopressor] 25 mg PO BID 01/04/18 [History] Omeprazole [PriLOSEC] 20 mg PO DAILY 01/04/18 [History] Ondansetron [Zofran] 8 mg PO Q8H PRN 01/04/18 [History] Pravastatin Sodium [Pravachol] 40 mg PO HS 01/04/18 [History] Prochlorperazine Maleate [Compazine] 10 mg PO Q6H PRN 01/04/18 [History] Rivaroxaban [Xarelto] 20 mg PO DAILY 01/04/18 [History] levoFLOXacin [Levaquin] 750 mg PO DAILY #6 tablet 01/08/18 [Rx] 3 Allergy/AdvReac Type Severity Reaction Status Date / Time No Known Allergies Allergy Verified 01/04/18 12:25 Palliative Care-Exam - Constitutional Vitals: Temp Pulse Resp BP Pulse Ox 97.9 F 70 18 145/85 100 01/11/18 14:36 01/11/18 14:36 01/11/18 14:36 01/11/18 14:36 01/11/18 14:36 General appearance: Present: cooperative, no acute distress. Absent: febrile Internal Medicine - CN: Reslt - Labs CBC & Chem 7: 01/11/18 04:12 01/11/18 04:12 Labs: Short CBC 01/11/18 Range/Units 04:12 WBC 7.2 (4.3-11.1) K/mcL Hgb 11.2 L (12.9-16.9) g/dL Hct 32.4 L (37.5-50.1) % Plt Count 238 (140-400) K/mcL Neutrophils # 4.4 (1.6-8.9) K/mcL BMP 01/11/18 04:12 Sodium 131 L Potassium 3.4 L Chloride 98 Carbon Dioxide 25 BUN 7 L Creatinine 0.70 Glucose 84 Calcium 8.9 Consult Discharge Plan - Plan Referrals: Shabana Fulton, JET PIERCER OPERATOR [Primary Care Provider] - ( ) Palliative Quality Palliative Quality: Screen for Code Status: Yes, Screen for Goals of Care: Yes, Screen for Pain: Yes, If Pain Regimen Started, Initiate Bowel Regimen: NA, Screen for Nausea/Vomitting: Yes Code Status: 01/11/18 16:05 DNR [Resuscitation Status: Active] [RES] Routine Comment: Resuscitation Status: [id number]
[2018-01-11] MEDS ORDERED: Dexamethasone 10 MG/ML VIAL IVP STA (18:50)
[2018-01-11 18:51] LABS: Bilirubin,Urine Negative (Negative); Blood,Urine Moderate (Negative); Clarity,Urine Clear (Clear); Color,Urine Yellow (Yellow); Glucose,Urine (UA) Normal (Normal); Ketones,Urine Negative (Negative); Leukocyte Esterase,Urine Negative (Negative); Nitrite,Urine Negative (Negative); Protein,Urine Negative (Neg-Trace); Specific Gravity,Urine 1.016 (1.010-1.025); Urobilinogen,Urine Normal (Normal)
[2018-01-11 18:53] LABS: Bacteria,Urine None Seen per hpf (None-Few); Hyaline Casts,Urine None Seen per lpf (None-Few); Squamous Epithelial Cell,Urine Moderate per lpf (None-Few); WBC,Urine 0-3 per hpf (0-3)
--- NOTE | 2018-01-11 19:45 | Event Note ---
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 We are contacting [facility] to arrange transfer. Currently they are looking into a bed for Neuro Critical Care. In this time, we give 10 mg IV Decadron and getting stat MRI.
--- NOTE | 2018-01-11 20:29 | Discharge Summary ---
Date of Encounter: 01/11/18 Time of Encounter: 20:23 - Discharge Diagnosis (1) Obstructive hydrocephalus Priority: Primary Status: Acute (2) Dehydration Priority: Secondary Status: Resolved (3) CAD (coronary artery disease) Priority: Secondary Status: Chronic Qualifiers: Coronary Disease-Associated Artery/Lesion type: [place] artery [place] vs. transplanted heart: [place] heart Associated angina: without angina Qualified Code(s): I25.10 - Atherosclerotic heart disease of [place] coronary artery without angina pectoris (4) COPD (chronic obstructive pulmonary disease) Priority: Secondary Status: Chronic Qualifiers: COPD type: chronic bronchitis Chronic bronchitis type: unspecified Qualified Code(s): J42 - Unspecified chronic bronchitis (5) Protein-calorie malnutrition, moderate Priority: Secondary Status: Acute (6) Small cell lung cancer Priority: Secondary Status: Chronic Qualifiers: Laterality: unspecified laterality Qualified Code(s): C34.90 - Malignant neoplasm of unspecified part of unspecified bronchus or lung (7) Abdominal aortic aneurysm (AAA) greater than 5.5 cm in diameter in male Priority: Secondary Status: Acute (8) Atrial fibrillation Priority: Secondary Status: Acute Qualifiers: Atrial fibrillation type: unspecified Qualified Code(s): I48.91 - Unspecified atrial fibrillation (9) Hypothyroidism Priority: Secondary Status: Acute Qualifiers: Hypothyroidism type: unspecified Qualified Code(s): E03.9 - Hypothyroidism , unspecified (10) Heart failure Priority: Secondary Status: Acute Qualifiers: Heart failure type: diastolic Heart failure chronicity: chronic Qualified Code(s): I50.32 - Chronic diastolic (congestive) heart failure - Discharge Medications Home Medications: Budesonide/Formoterol 160/4.5 [Symbicort 160/4.5] 1 puff IH BIDR 12/29/17 [ History] Citalopram [CeleXA] 40 mg PO DAILY 12/29/17 [History] Digoxin [Lanoxin] 0.25 mg PO DAILY 12/29/17 [History] Diltiazem CD (24hr) [Cardizem CD] 180 mg PO DAILY 12/29/17 [History] Furosemide [Lasix] 20 mg PO DAILY 12/29/17 [History] LORazepam [Ativan] 1 mg PO QID PRN 12/29/17 [History] Levothyroxine [Synthroid] 100 mcg PO QAM 12/29/17 [History] OxyCODONE Immed Rel [Roxicodone 15 MG] 15 mg PO Q6HR PRN 12/29/17 [History] Oxygen 2 l NS AD 12/29/17 [History] methIMAzole [Tapazole] 5 mg PO BID 12/29/17 [History] Albuterol Sulfate [Albuterol Inhaler] 2 puff IH Q4H PRN 01/04/18 [History] Aspirin Enteric Coated [Aspirin EC] 81 mg PO DAILY 01/04/18 [History] Guaifenesin [Mucinex] 1,200 mg PO BID 01/04/18 [History] Lidocaine/Prilocaine CREAM [Emla] 1 appl TP AD 01/04/18 [History] Magic Mouthwash [Magic Mouthwash BLM] 10 ml PO QID PRN 01/04/18 [History] Metoprolol [Lopressor] 25 mg PO BID 01/04/18 [History] Omeprazole [PriLOSEC] 20 mg PO DAILY 01/04/18 [History] Ondansetron [Zofran] 8 mg PO Q8H PRN 01/04/18 [History] Pravastatin Sodium [Pravachol] 40 mg PO HS 01/04/18 [History] Prochlorperazine Maleate [Compazine] 10 mg PO Q6H PRN 01/04/18 [History] Rivaroxaban [Xarelto] 20 mg PO DAILY 01/04/18 [History] levoFLOXacin [Levaquin] 750 mg PO DAILY #6 tablet 01/08/18 [Rx] Allergies/Adverse Reactions: 3 Allergy/AdvReac Type Severity Reaction Status Date / Time No Known Allergies Allergy Verified 01/04/18 12:25 Procedures/tests Complete & Pending: Procedures Performed prior 72 hours Category Date Time Status CT head/brain wo con [CT] Stat Cat Scan 01/11/18 16:51 Completed MR head/brain wo/w con [MR] Stat MRI 01/11/18 18:51 Ordered Date of admission: 01/10/18 08:45 Primary care physician: Shabana Fulton CNP Consults: 01/11/18 09:58 PT [Consult to Physical Therapy] [CONS] Routine Comment: Evaluate, develop and implement POC Reason for Consult: weakness 01/11/18 10:00 OT [Consult to Occupational Therapy] [CONS] Routine Comment: Evaluate, develop and implement POC Reason for Consult: weakness 01/11/18 15:09 Consult to Palliative Care [CONS] Routine Comment: Consulting Provider: Palliative Care Nickie Reason for Consult: Failure to thrive, goals of care Call Completed: Yes Discharging clinician: Priscila Workman - Patient Status Disposition: Transfer Critical Access Hosp Condition: Critical Functional capacity at discharge: bed bound Overall status at discharge: patient is not back to baseline - Discharge Instructions Follow Up With: Shabana Fulton, [employer] [Primary Care Provider] - ( ) - Diet and Activity Activity: other (Bedrest) Diet: other (NPO) Hospital course: Mr. 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 He has lost a significant amount of weight. Patient stated he had no urge to eat. Based on patient hyperthyroidism, immunotherapy, and chronic illness he was given IV hydration. Oncology service was consulted to evaluate if patient would need medication changes. Patient responded well to IV fluids. He had a CT abdomen/pelvis to evaluate back pain that showed no acute liz lesions but showed AAA that was 5.8 cm. Vascular Surgery evaluated patient and planned to arrange for outpatient follow-up. Patient hydration improved but appetite remained poor. He was given supplemental Ensure shakes. He did improve with this but after several days appetite declined once again. Palliative service was consulted to address his goals of care since appetite was declining. After discussion, patient was made DNR-DNI by family. 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 Xarelto and aspirin are held. With these findings, [facility] transfer center was contacted. [facility]. I called and she was okay with transfer to [facility] for further evaluation and potential treatment. We discussed poor prognosis that this may not change morbidity and mortality, and complicated given anticoagulation. She verbalizes understanding of this and states that her family believed this was the case. Patient is arranged to be transferred via [facility]. - Time Spent with Patient Total time spent providing and/or coordinating discharge services: - Constitutional Vitals: Temp Pulse Resp BP Pulse Ox 99.0 F 89 14 113/66 97 01/11/18 18:35 01/11/18 18:35 01/11/18 20:21 01/11/18 18:35 01/11/18 20:21 Exam: Gen: Patient alert, AAOx2, answers some questions appropriately, other times does not respond CVS: irregularly irregular rate and rhythm Lungs: CTAB Abd: Soft, NT/ND Ext: no edema Neuro: CN II-XII in tact, slight weakness in arm grasp, worse than my in the past 2 days. Sensation of extremities preserved.
[2018-01-11 21:08] VITALS: BP 126/67
== END 2018-01-11 21:20 | disposition critical access hospital (66) | DRG 640 ==
LOC: EMEROO 12:03 → 3ANU 12:03
PROVIDERS: ADMIT Student in an Organized Health Care Education/Training Program; ATTEND Internal Medicine